=== PATIENT | female | born 2000 | race African-American/Black ===

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

== ENCOUNTER → 2020-10-31 | Outpatient (CLI) | payer OTHER ==
--- NOTE | 2020-11-01 16:14 | US ---
EXAMINATION TYPE: Transabdominal DATE OF EXAM: 10/31/2020 4:13 PM COMPARISON: NONE CLINICAL HISTORY: Z36 Confirm dates. Confirm Dates, pt has no complaints at this time EXAM PERFORMED: Transabdominal (TA) EXAM MEASUREMENTS: GESTATIONAL AGE / DATING Physician Established: Not yet established Dates by LMP: (9 weeks/1 days) EDC: 06/04/2021 Dates by First Scan: No prior Dates by Current Scan for: (8 weeks/4 days) EDC: 06/08/2021 MATERNAL ANATOMY Uterus: 10.1 x 7.6 x 8.3 cm Right Ovary: 3.4 x 2.3 x 2.2 cm Left Ovary: 2.2 x 1.8 x 1.2 cm Post CDS / Adnexa: wnl Presence of free fluid: No Presence of corpus luteal cyst: Right Ovary= 1.8 x 1.8 x 2.0 cm Presence of subchorionic bleed: No GESTATION / SURVEY CRL: 2.0 cm (8 weeks/4 days) MSD: wnl Yolk Sac (normal less than 6mm): 4mm Heart Rate: 176 bpm Rhythm: Normal IUP: Viable IUP Date of LMP: 08/28/2020 IMPRESSION: 1. Single intrauterine gestation estimated at 8 weeks 4 days gestation based on crown-rump length. Ca rdiac activity measures 1 76 bpm
== END ==
LOC: RADUSWWP 16:01
PROVIDERS: ATTEND Obstetrics & Gynecology
DX: Z36.89 Encounter for other specified antenatal screening (principal); Z3A.08 8 weeks gestation of pregnancy
CPT/HCPCS: 76801

== ENCOUNTER 2021-03-29 11:54 | Outpatient (CLI) | payer OTHER ==
[2021-03-29 12:34] VITALS: BP 142/64; PULSE 107; RESP 18; TEMP 96.2
--- NOTE | 2021-03-30 17:16 | P.MSEPDOC ---
Presenting Problems - Arrival Data Date of Arrival on Unit: 03/29/21 Time of Arrival on Unit: 12:00 Mode of Transport: Ambulatory - Complaint OB-Reason for Admission/Chief Complaint: Decreased Movement Medical History - Information : 2 Para: 1 Term: 1 : 0 Abortions: Spontaneous or Elective: 0 Number of Living Children: 1 - Gestational Age Gestational Age by AAMIR (wks/days): 30 Weeks and 3 Days Review of Systems - Review of Systems Constitutional: No problems Breast: No problems ENT: No problems Cardiovascular: No problems Respiratory: No problems Gastrointestinal: No problems Genitourinary: No problems Musculoskeletal: No problems Neurological: No problems Skin: No problems Vital Signs - Temperature Temperature: 96.2 F Temperature Source: Temporal Artery Scan - Pulse Right Brachial Pulse Rate: 107 Pulse Assessment Method: Automatic Cuff - Respirations Respiratory Rate: 18 Oxygen Delivery Method: Room Air O2 Sat by Pulse Oximetry: 99 - Blood Pressure Right Arm Blood Pressure: 142/64 Blood Pressure Mean: 90 Blood Pressure Source: Automatic Cuff Medical Screen Scoring - Cervical Exam Membranes: Intact - Assessment - Baby A Baseline FHR: 150 Heart Rate - NICHD Category: Category I (Normal) NST: Reactive Physician Notification - Physician Notified Physician Notified Date: 03/29/21 Physician Notified Time: 12:35 Physician: Dr Oglesby New Order Received: Yes (D/C order) Maternal Triage Index - Non-Urgent/Priority 4 Non-Urgent Priority 4: Yes Criteria Met for Priority 4: Admitted to triage at 1200. Dr Oglesby called at 1235 for NST results Disposition - Disposition OB Disposition: Discharge to home Discharge Date: 03/29/21 Discharge Time: 12:58 I agree with the RN Medical Screening Exam: Yes Case reviewed; plan agreed upon as documented in EMR&OBIX.: Yes Diagnosis: DECREASED MOVEMENTS, THIRD TRIMESTER, FETUS 1
== END 2021-03-29 12:58 | disposition home or self-care (01) ==
LOC: FBPOP 11:54
PROVIDERS: ATTEND Obstetrics & Gynecology
DX: O36.8131 Decreased fetal movements, third trimester, fetus 1 (principal); Z3A.30 30 weeks gestation of pregnancy
CPT/HCPCS: 59025; G0463; 99213

== ENCOUNTER 2021-05-20 02:52 | Inpatient (IN) | payer OTHER ==
[2021-05-20] MEDS ORDERED: OXYTOCIN 10 UNIT/ML 1 ML VIAL IM PRN (04:07)
[2021-05-20] MEDS ORDERED: METHYLERGONOVINE 0.2 MG/ML 1 ML AMP IM PRN (04:07)
[2021-05-20] MEDS ORDERED: TERBUTALINE 1 MG/ML VIAL SQ PRN (04:07)
[2021-05-20] MEDS ORDERED: LIDOCAINE 0.5% (PF) 5 MG/ML (50 ML SDV) SQ PRN (04:07)
[2021-05-20] MEDS ORDERED: AMPICILLIN 2,000 MG in SODIUM CHLORIDE 0.9% 100 ML IVPB STA (04:07)
[2021-05-20] MEDS ORDERED: CARBOPROST TROMETHAMINE 250 MCG/ML 1 ML AMP IM PRN (04:07)
[2021-05-20] MEDS ORDERED: OXYTOCIN 30 UNITS/500 ML NS 30 UNIT in SALINE 1 500ML.BAG IV SCH ×2 (04:15→09:15)
[2021-05-20] MEDS: LACTATED RINGERS 1,000 ML IV SCH ×2 (04:21→07:28)
[2021-05-20 04:54] LABS: Basophils % (A) 0 %; Eosinophils # (A) 0.2 k/uL (0-0.7); Eosinophils % (A) 2 %; HCT 28.7 % (34.0-46.0); Hypochromasia Slight; Lymphocytes # (A) 2.5 k/uL (1.0-4.8); Lymphocytes % (A) 22 %; MCH 22.8 pg (25.0-35.0); MCHC 31.2 g/dL (31.0-37.0); MCV 72.9 fL (80.0-100.0); Mean Platelet Volume 7.2; Microcytosis Slight; Monocytes # (A) 0.8 k/uL (0-1.0); Monocytes % (A) 7 %; Neutrophils # (A) 7.7 k/uL (1.3-7.7); Neutrophils % (A) 67 %; Platelet Count 344 k/uL (150-450); Poikilocytosis Slight; RBC 3.93 m/uL (3.80-5.40); RDW 15.9 % (11.5-15.5); WBC 11.5 k/uL (3.8-10.6)
[2021-05-20 04:57] LABS: Amorphous Sediment,Urine Occasional /hpf; Appearance,Urine Clear (Clear); Bilirubin,Urine Negative (Negative); Blood,Urine Negative (Negative); Color,Urine Yellow; Glucose,Urine (UA) Negative (Negative); Hyaline Casts,Urine 1 /lpf (0-2); Ketones,Urine Negative (Negative); Leukocyte Esterase,Urine Small (Negative); Mucus,Urine Many /hpf; Nitrite,Urine Negative (Negative); PH, Urine 6.5 (5.0-8.0); Protein,Urine Trace (Negative); RBC,Urine <1 /hpf (0-5); Specific Gravity,Urine 1.022 (1.001-1.035); Squamous Epithelial Cell,Urine 3 /hpf (0-4); Urobilinogen,Urine <2.0 mg/dL (<2.0); WBC,Urine 3 /hpf (0-5)
[2021-05-20 05:06] LABS: ALT 11 U/L (4-34); AST 26 U/L (14-36); African American GFR (CKD) >90 (>60 ml/min/1.73 sqM); Blood Urea Nitrogen 7 mg/dL (7-17); LDH 530 U/L (313-618); Non-African American GFR(CKD) >90 (>60 ml/min/1.73 sqM); Uric Acid 4.2 mg/dL (3.7-7.4)
[2021-05-20 05:26] LABS: INR 0.8 (<1.2); Partial Thromboplastin Time 20.7 sec (22.0-30.0); Prothrombin Time 9.3 sec (9.0-12.0)
--- NOTE | 2021-05-20 05:27 | P.HPOB ---
History of Present Illness H&P Date: 05/20/21 Chief Complaint: Contractions This patient is a pleasant 21-year-old 3 para 1 female estimated date of confinement 06/04/2021 estimated gestational age 38-6/7 weeks who presents to labor and delivery with complaints of contractions since 1 this morning. On admission patient's found to be 2 cm dilated and having irregular contractions however she has had multiple elevated blood pressures. care is per Dr. Oglesby appears to be uncomplicated. Preeclampsia labs are negative. Evaluation the patient shows that she is most likely in early labor, however in light of the elevated blood pressures some recommended proceed with delivery at this time. Review of Systems Genitourinary: Reports Menstruation: Reports amenorrhea Past Medical History Past Medical History: Asthma Additional Past Medical History / Comment(s): Obstetric history: Patient had a term vaginal deliveries 7 lbs. 5 oz. baby girl in 2019. History of Any Multi-Drug Resistant Organisms: None Reported Past Surgical History: No Surgical Hx Reported Past Anesthesia/Blood Transfusion Reactions: No Reported Reaction Past Psychological History: No Psychological Hx Reported Smoking Status: Never smoker Past Alcohol Use History: None Reported Past Drug Use History: None Reported - Past Family History Mother Family Medical History: Hypertension Additional Family Medical History / Comment(s): anxiety Medications and Allergies Home Medications Medication Instructions Recorded Confirmed Type No Known Home Medications 05/20/21 05/20/21 History Allergies Allergy/AdvReac Type Severity Reaction Status Date / Time No Known Allergies Allergy Verified 05/20/21 02:54 Exam Vital Signs Temp Pulse Resp BP Pulse Ox 05/20/21 04:16 97.1 F L 104 H 18 146/85 05/20/21 04:03 98.5 F 111 H 18 166/90 98 Intake and Output 05/19/21 05/19/21 05/20/21 14:59 22:59 06:59 Other: Weight 110.677 kg - OBG Physical Exam Vulva: both: normal Vagina: normal moisture, no discharge Cervix: no lesion (Cervix is 2-3 cm, 50% effaced.), no discharge Uterus: enlarged Results blood work shows she is B+, rubella immune, RPR nonreactive, hepatitis B negative, HIV is nonreactive. Group B strep was negative however she has a history of positive strep with her first . Growth ultrasound done on the show the baby's estimated weight to be 5 pounds. Result Diagrams: 05/20/21 04:22 05/20/21 04:22 Abnormal Lab Results - Last 24 Hours (Table) 05/20/21 05/20/21 Range/Units 04:12 04:22 WBC 11.5 H (3.8-10.6) k/uL Hgb 9.0 L (11.4-16.0) gm/dL Hct 28.7 L (34.0-46.0) % MCV 72.9 L (80.0-100.0) fL MCH 22.8 L (25.0-35.0) pg RDW 15.9 H (11.5-15.5) % Urine Protein Trace H (Negative) Ur Leukocyte Esterase Small H (Negative) Amorphous Sediment Occasional H (None) /hpf Urine Mucus Many H (None) /hpf Assessment and Plan Assessment: This is a pleasant 21-year-old 3 para 1 female 38-6/7 weeks gestation with early active labor and gestational hypertension. She also has a history of positive strep with a previous . Plan is induction of labor, antibiotic prophylaxis, and anticipate vaginal delivery. (1) 38 weeks gestation of Current Visit: Yes Status: Acute Code(s): Z3A.38 - 38 WEEKS GESTATION OF SNOMED Code(s): 18193632 (2) Gestational hypertension Current Visit: Yes Status: Acute Code(s): O13.9 - GESTATIONAL HTN W/O SIGNIFICANT PROTEINURIA, UNSP TRIMESTER SNOMED Code(s): 76174774 (3) Normal labor Current Visit: No Status: Resolved Code(s): O80 - ENCOUNTER FOR FULL-TERM UNCOMPLICATED DELIVERY; Z37.9 - OUTCOME OF DELIVERY, UNSPECIFIED SNOMED Code(s): 75249043
[2021-05-20] MEDS ORDERED: BUTORPHANOL 1 MG/ML 1 ML VIAL IV PRN (05:41)
[2021-05-20] MEDS ORDERED: SODIUM CHLORIDE 0.9% 100 ML BAG ONE (07:55)
[2021-05-20] MEDS ORDERED: fentaNYL (PF) 50 MCG/ML 5 ML AMP ONE (07:55)
[2021-05-20] MEDS ORDERED: ROPIVACAINE 5MG/ML 20ML VIAL ONE (07:55)
[2021-05-20] MEDS ORDERED: AMPICILLIN 1,000 MG in SODIUM CHLORIDE 0.9% 50 ML IVPB SCH (08:15)
[2021-05-20] MEDS ORDERED: diphenhydrAMINE 50 MG/ML 1 ML VIAL IVP PRN (09:15)
[2021-05-20] MEDS ORDERED: LANOLIN CREAM 5 GM TUBE TOPICAL PRN (09:15)
[2021-05-20] MEDS ORDERED: SENNOSIDES-DOCUSATE SODIUM 1 EACH TAB PO PRN (09:15)
[2021-05-20] MEDS ORDERED: BENZOCAINE/MENTHOL SPRAY 1 GM/SPRAY AEROSOL TOPICAL PRN (09:15)
[2021-05-20] MEDS ORDERED: HYDROCORTISONE 2.5% RECTAL CREAM 30 GM TUBE RECTAL PRN (09:15)
[2021-05-20] MEDS ORDERED: diphenhydrAMINE 25 MG CAP PO PRN (09:15)
[2021-05-20] MEDS ORDERED: ZOLPIDEM 5 MG TAB PO PRN (09:15)
[2021-05-20] MEDS ORDERED: bisacodyL 10 MG SUPP RECTAL PRN (09:15)
[2021-05-20] MEDS ORDERED: SIMETHICONE 80 MG CHEWABLE PO PRN (09:15)
--- NOTE | 2021-05-20 09:19 | P.PROBDLV ---
Vaginal Delivery Note - . Vaginal Delivery Note: Normal spontaneous vaginal delivery viable female infant Apgars 9 and 9 delivery time was 0859 hours. Please see dictated H&P for intimate details of this patient's admission. Brief summary this is a pleasant 21-year-old 3 para 1 female 38-6/7 weeks gestation admitted to labor and delivery in early active labor and also with elevated blood pressures. Preeclampsia evaluation was negative however I recommended she proceed with delivery at this time. Artificial rupture membranes was done at 2 cm dilated for clear fluid. Labor is augmented with Pitocin. She does get 1 dose of Stadol and then requested an epidural at 4-5 cm dilated. Unfortunately this does not give her very good relief, however she does progress quickly gets to complete. With approximately 2 pushes she pushes the head to the perineum. The posterior perineum is supported and we have controlled delivery of the infant's head over the intact perineum. Infant's mouth and nares are bulb suctioned. There is no evidence of a nuchal cord. Infant's position straight occiput anterior presentation. With this done we then have delivery the anterior and posterior shoulder with gentle downward traction. This is a vigorous viable female infant at 0859 hours. has spontaneous respiration and good cry and grossly appears normal. The baby is in laid on the mother's abdomen. After the cord is done pulsating is doubly clamped and cut. Does appear to be trivascular. Placenta is then delivered spontaneously intact. Estimated blood loss is 100 mL. There is a small first- degree laceration posterior vagina which is repaired with 3-0 Vicryl in the usual fashion. Excellent reapproximation is noted. All counts correct 3. There are no complications. Infant and mother are stable and birthing room.
[2021-05-20] MEDS: IBUPROFEN 600 MG TAB PO PRN ×3 (09:50→22:56)
[2021-05-20] MEDS: ACETAMINOPHEN TAB 325 MG TAB PO PRN ×2 (13:16→19:33)
[2021-05-21] MEDS: ACETAMINOPHEN TAB 325 MG TAB PO PRN ×2 (03:57→15:49)
[2021-05-21 05:51] LABS: Anisocytosis Slight; Basophils % (A) 0 %; Eosinophils # (A) 0.2 k/uL (0-0.7); Eosinophils % (A) 2 %; HCT 23.1 % (34.0-46.0); Hypochromasia Moderate; Lymphocytes % (A) 30 %; MCH 22.7 pg (25.0-35.0); MCHC 30.5 g/dL (31.0-37.0); MCV 74.6 fL (80.0-100.0); Microcytosis Slight; Monocytes # (A) 0.7 k/uL (0-1.0); Monocytes % (A) 7 %; Neutrophils # (A) 5.8 k/uL (1.3-7.7); Neutrophils % (A) 58 %; Platelet Count 230 k/uL (150-450); Poikilocytosis Slight; RDW 16.1 % (11.5-15.5)
[2021-05-21 05:58] LABS: HGB 7.1 gm/dL (11.4-16.0)
--- NOTE | 2021-05-21 07:24 | P.DS ---
Providers Date of admission: 05/20/21 04:10 Expected date of discharge: 05/21/21 Attending physician: Carli Oglesby Primary care physician: Stated None - Discharge Diagnosis(es) (1) Normal vaginal delivery Current Visit: No Status: Acute Hospital Course: Patient presented in active labor. She underwent a normal vaginal delivery. course was uncomplicated. She denies nausea, vomiting, chest pain, shortness of breath or any calf pain. She'll be discharged home day #1 in stable condition to follow-up with me in 6 weeks. Plan - Discharge Summary New Discharge Prescriptions: New Ibuprofen [Motrin] 600 mg PO Q6HR PRN #30 tab PRN Reason: Mild Pain (Scale 1 To 3) Discharge Medication List Ibuprofen [Motrin] 600 mg PO Q6HR PRN #30 tab 05/21/21 [Rx] Follow up Appointment(s)/Referral(s): Carli Oglesby DO [Doctor of Osteopathic Medicine] - 6 Weeks Discharge Disposition: HOME SELF-CARE
[2021-05-21] MEDS: IBUPROFEN 600 MG TAB PO PRN ×2 (07:31→22:24)
[2021-05-21 23:47] VITALS: PULSE 78
[2021-05-22] MEDS: ACETAMINOPHEN TAB 325 MG TAB PO PRN (04:57)
[2021-05-22 08:01] VITALS: BP 141/84; RESP 16; TEMP 98.5
[2021-05-22] MEDS: IBUPROFEN 600 MG TAB PO PRN (08:37)
== END 2021-05-22 09:30 | disposition home or self-care (01) | DRG 807 ==
LOC: FBPOP 02:52 → 4FBP 04:10
PROVIDERS: ADMIT Obstetrics & Gynecology; ATTEND Obstetrics & Gynecology
PROC: 00HU33Z Insertion of Infusion Device into Spinal Canal, Percutaneous Approach (ICD-10-PCS; principal; 2021-05-20)
PROC: 10907ZC Drainage of Amniotic Fluid, Therapeutic from Products of Conception, Via Natural or Artificial Opening (ICD-10-PCS; principal; 2021-05-20)
PROC: 3E0R3NZ Introduction of Analgesics, Hypnotics, Sedatives into Spinal Canal, Percutaneous Approach (ICD-10-PCS; principal; 2021-05-20)
PROC: 10E0XZZ Delivery of Products of Conception, External Approach (ICD-10-PCS; principal; 2021-05-20)
DX: O13.4 Gestational [pregnancy-induced] hypertension without significant proteinuria, complicating childbirth (principal); Z37.0 Single live birth; O99.52 Diseases of the respiratory system complicating childbirth; J45.909 Unspecified asthma, uncomplicated; Z3A.38 38 weeks gestation of pregnancy; Z82.49 Family history of ischemic heart disease and other diseases of the circulatory system; Z81.8 Family history of other mental and behavioral disorders
CPT/HCPCS: 59025; 81001; 82565; 83615; 84450; 84460; 84520; 84550; 85025; 85384; 85610; 85730; 86850; 86900; 86901; 99213

== ENCOUNTER 2022-07-04 00:53 | Emergency (ER) | payer OTHER ==
[2022-07-04 01:06] VITALS: BP 133/88; PULSE 89; RESP 18; TEMP 98.1
[2022-07-04 01:58] LABS: Basophils % (A) 0 %; Eosinophils # (A) 0.3 k/uL (0-0.7); Eosinophils % (A) 3 %; HCT 34.3 % (34.0-46.0); HGB 11.5 gm/dL (11.4-16.0); Lymphocytes # (A) 3.2 k/uL (1.0-4.8); Lymphocytes % (A) 37 %; MCH 26.6 pg (25.0-35.0); MCHC 33.5 g/dL (31.0-37.0); MCV 79.4 fL (80.0-100.0); Mean Platelet Volume 8.4; Monocytes # (A) 0.4 k/uL (0-1.0); Monocytes % (A) 5 %; Neutrophils # (A) 4.5 k/uL (1.3-7.7); Neutrophils % (A) 53 %; Platelet Count 367 k/uL (150-450); RBC 4.32 m/uL (3.80-5.40); RDW 15.4 % (11.5-15.5); WBC 8.6 k/uL (3.8-10.6)
[2022-07-04 02:04] LABS: Appearance,Urine Cloudy (Clear); Bacteria,Urine Rare /hpf; Bilirubin,Urine Negative (Negative); Blood,Urine Negative (Negative); Color,Urine Colorless; Glucose,Urine (UA) Negative (Negative); Ketones,Urine Negative (Negative); Leukocyte Esterase,Urine Moderate (Negative); Mucus,Urine Rare /hpf; Nitrite,Urine Negative (Negative); PH, Urine 6.5 (5.0-8.0); Protein,Urine Negative (Negative); RBC,Urine 24 /hpf (0-5); Specific Gravity,Urine 1.004 (1.001-1.035); Squamous Epithelial Cell,Urine 1 /hpf (0-4); Urobilinogen,Urine <2.0 mg/dL (<2.0); WBC,Urine 8 /hpf (0-5)
[2022-07-04 02:21] LABS: ALT 23 U/L (4-34); AST 24 U/L (14-36); African American GFR (CKD) >90 (>60 ml/min/1.73 sqM); Albumin 4.1 g/dL (3.5-5.0); Alkaline Phosphatase 80 U/L (38-126); Anion Gap 9 mmol/L; Blood Urea Nitrogen 6 mg/dL (7-17); Calcium 9.3 mg/dL (8.4-10.2); Carbon Dioxide 23 mmol/L (22-30); Chloride 106 mmol/L (98-107); Glucose 77 mg/dL (74-99); Non-African American GFR(CKD) >90 (>60 ml/min/1.73 sqM); Sodium 138 mmol/L (137-145); Total Bilirubin 0.2 mg/dL (0.2-1.3); Total Protein 6.9 g/dL (6.3-8.2)
--- NOTE | 2022-07-04 02:23 | US ---
EXAMINATION TYPE: Transabdominal DATE OF EXAM: 07/04/2022 2:09 AM COMPARISON: NONE CLINICAL HISTORY: vaginal bleeding in early ; LMP 05-19-22. vaginal bleeding x 1 day. EXAM PERFORMED: Transvaginal (TV) and Transabdominal (TA) EXAM MEASUREMENTS: GESTATIONAL AGE / DATING Physician Established: Not yet established Dates by LMP: 06/03/22 (4 weeks/3 days) EDC: 03/10/23 Dates by First Scan: No previous this is first scan Dates by Current Scan for: (5 weeks/2 days) EDC: 03/05/23 MATERNAL ANATOMY Uterus: 10.4 x 6.8 x 4.9cm Right Ovary: 3.9 x 3.3 x 2.2cm Left Ovary: Not vis. Post CDS / Adnexa: wnl Presence of free fluid: No Presence of corpus luteal cyst: In right ovary Presence of subchorionic bleed: Yes GESTATION / SURVEY CRL: Not seen MSD: 1.2 x 1.1 x 1.2cm (5 weeks/2 days) Yolk Sac (normal less than 6mm): 2.5 IUP: Gest sac with yolk sac visualized in endometrial area Date of LMP: 06/03/22 Beta HcG (if available): n/a IMPRESSION: Small intrauterine gestational sac with size corresponds to 5 weeks and 2 days. 2 mm yolk sac. Follow -up exam recommended in 14 days to confirm a living fetus. No adnexal mass.
--- NOTE | 2022-07-04 02:46 | ED ---
General Adult HPI - General Chief complaint: Vaginal Bleeding Stated complaint: Vaginal bleeding, early Time Seen by Provider: 07/04/22 01:13 Source: patient, RN notes reviewed Mode of arrival: ambulatory Limitations: no limitations - History of Present Illness Initial comments: 22-year-old female, , presents to the emergency department for evaluation of vaginal bleeding and early . Patient states her last menstrual period was May 19, though did have some spotting on the 03 of June. States she had a positive home test which was confirmed at the health department. States she was diagnosed with a yeast infection and instructed to start on Monistat which she has obtained, but has not used yet. States she noticed some blood on the tissue when she wiped earlier today and became concerned about her . Does have some itching, irritation discomfort. Has not had any blood on underwear/pantyliner. Complains of mild low back and pelvic achiness. Denies fever, chills, headache, dizziness, chest pain, difficulty breathing, abdominal pain, nausea, vomiting, diarrhea, or dysuria. - Related Data Previous Rx's Medication Instructions Recorded Ibuprofen [Motrin] 600 mg PO Q6HR PRN #30 tab 05/21/21 Allergies Allergy/AdvReac Type Severity Reaction Status Date / Time No Known Allergies Allergy Verified 07/04/22 01:06 Review of Systems ROS Statement: Those systems with pertinent positive or pertinent negative responses have been documented in the HPI. ROS Other: All systems not noted in ROS Statement are negative. Past Medical History Past Medical History: Asthma Additional Past Medical History / Comment(s): Obstetric history: Patient had a term vaginal deliveries 7 lbs. 5 oz. baby girl in 2019. History of Any Multi-Drug Resistant Organisms: None Reported Past Surgical History: No Surgical Hx Reported Past Anesthesia/Blood Transfusion Reactions: No Reported Reaction Past Psychological History: No Psychological Hx Reported Smoking Status: Never smoker Past Alcohol Use History: None Reported Past Drug Use History: None Reported - Past Family History Mother Family Medical History: Hypertension Additional Family Medical History / Comment(s): anxiety General Exam Limitations: no limitations General appearance: alert, in no apparent distress ENT exam: Present: mucous membranes moist Respiratory exam: Present: normal lung sounds bilaterally. Absent: respiratory distress, wheezes, rales, rhonchi, stridor Cardiovascular Exam: Present: regular rate, normal rhythm, normal heart sounds. Absent: systolic murmur, diastolic murmur, rubs, gallop, clicks GI/Abdominal exam: Present: soft, normal bowel sounds. Absent: distended, tenderness, guarding, rebound, rigid Speculum exam: Present: vaginal discharge (white vaginal discharge curd-like in appearance noted on the vulva and with speculum exam). Absent: vaginal bleeding Back exam: Absent: CVA tenderness (R), CVA tenderness (L) Neurological exam: Present: alert, oriented X3, normal gait Psychiatric exam: Present: normal affect, normal mood Skin exam: Present: warm, dry, intact, normal color. Absent: rash Course Vital Signs 07/04/22 01:04 Temperature 98.1 F Pulse Rate 89 Respiratory 18 Rate Blood Pressure 133/88 O2 Sat by Pulse 100 Oximetry - Reevaluation(s) Reevaluation #1: 07/04/22 02:45 Results were discussed with patient. Patient is reassured. Given lab slip for repeat beta hCG. Instructed on follow-up care and return parameters. Patient verbalizes understanding. Medical Decision Making - Medical Decision Making 22-year-old female, , LMP 109-22, presents to the emergency department for evaluation of vaginal bleeding in early . Patient states she has noticed blood on the tissue when she wipes today. Has mild low back and pelvic aching discomfort. Physical exam findings are unremarkable with the exception of vaginal yeast infection which is likely the source of irritation causing scant amount of bleeding. Ultrasound was obtained showing a gestational sac within the uterus. Laboratory studies were obtained. Initial b-hCG 10,338.3. Patient is given a lab slip for repeat beta hCG in 48 hours. Encouraged to follow up with her [facility] [employer] next week. Return parameters discussed in detail. Patient verbalizes understanding and agrees with this plan. Attending: Georgina. - Lab Data Result diagrams: 07/04/22 01:43 07/04/22 01:43 Lab Results 07/04/22 07/04/22 07/04/22 Range/Units 01:23 01:23 01:43 WBC 8.6 (3.8-10.6) k/uL RBC 4.32 (3.80-5.40) m/uL Hgb 11.5 (11.4-16.0) gm/dL Hct 34.3 (34.0-46.0) % MCV 79.4 L (80.0-100.0) fL MCH 26.6 (25.0-35.0) pg MCHC 33.5 (31.0-37.0) g/dL RDW 15.4 (11.5-15.5) % Plt Count 367 (150-450) k/uL MPV 8.4 Neutrophils % 53 % Lymphocytes % 37 % Monocytes % 5 % Eosinophils % 3 % Basophils % 0 % Neutrophils # 4.5 (1.3-7.7) k/uL Lymphocytes # 3.2 (1.0-4.8) k/uL Monocytes # 0.4 (0-1.0) k/uL Eosinophils # 0.3 (0-0.7) k/uL Basophils # 0.0 (0-0.2) k/uL Sodium (137-145) mmol/L Potassium (3.5-5.1) mmol/L Chloride (98-107) mmol/L Carbon Dioxide (22-30) mmol/L Anion Gap mmol/L BUN (7-17) mg/dL Creatinine (0.52-1.04) mg/dL Est GFR (CKD-EPI)AfAm (>60 ml/min/1.73 sqM) Est GFR (CKD-EPI)NonAf (>60 ml/min/1.73 sqM) Glucose (74-99) mg/dL Calcium (8.4-10.2) mg/dL Total Bilirubin (0.2-1.3) mg/dL AST (14-36) U/L ALT (4-34) U/L Alkaline Phosphatase (38-126) U/L Total Protein (6.3-8.2) g/dL Albumin (3.5-5.0) g/dL HCG, Quant mIU/mL Urine Color Colorless Urine Appearance Cloudy H (Clear) Urine pH 6.5 (5.0-8.0) Ur Specific [place] 1.004 (1.001-1.035) Urine Protein Negative (Negative) Urine Glucose (UA) Negative (Negative) Urine Ketones Negative (Negative) Urine Blood Negative (Negative) Urine Nitrite Negative (Negative) Urine Bilirubin Negative (Negative) Urine Urobilinogen <2.0 (<2.0) mg/dL Ur Leukocyte Esterase Moderate H (Negative) Urine RBC 24 H (0-5) /hpf Urine WBC 8 H (0-5) /hpf Ur Squamous Epith Cells 1 (0-4) /hpf Urine Bacteria Rare H (None) /hpf Urine Mucus Rare H (None) /hpf Urine HCG, Qual Detected (Not Detectd) 07/04/22 Range/Units 01:43 WBC (3.8-10.6) k/uL RBC (3.80-5.40) m/uL Hgb (11.4-16.0) gm/dL Hct (34.0-46.0) % MCV (80.0-100.0) fL MCH (25.0-35.0) pg MCHC (31.0-37.0) g/dL RDW (11.5-15.5) % Plt Count (150-450) k/uL MPV Neutrophils % % Lymphocytes % % Monocytes % % Eosinophils % % Basophils % % Neutrophils # (1.3-7.7) k/uL Lymphocytes # (1.0-4.8) k/uL Monocytes # (0-1.0) k/uL Eosinophils # (0-0.7) k/uL Basophils # (0-0.2) k/uL Sodium 138 (137-145) mmol/L Potassium 4.0 (3.5-5.1) mmol/L Chloride 106 (98-107) mmol/L Carbon Dioxide 23 (22-30) mmol/L Anion Gap 9 mmol/L BUN 6 L (7-17) mg/dL Creatinine 0.70 (0.52-1.04) mg/dL Est GFR (CKD-EPI)AfAm >90 (>60 ml/min/1.73 sqM) Est GFR (CKD-EPI)NonAf >90 (>60 ml/min/1.73 sqM) Glucose 77 (74-99) mg/dL Calcium 9.3 (8.4-10.2) mg/dL Total Bilirubin 0.2 (0.2-1.3) mg/dL AST 24 (14-36) U/L ALT 23 (4-34) U/L Alkaline Phosphatase 80 (38-126) U/L Total Protein 6.9 (6.3-8.2) g/dL Albumin 4.1 (3.5-5.0) g/dL HCG, Quant 04478.3 mIU/mL Urine Color Urine Appearance (Clear) Urine pH (5.0-8.0) Ur Specific [place] (1.001-1.035) Urine Protein (Negative) Urine Glucose (UA) (Negative) Urine Ketones (Negative) Urine Blood (Negative) Urine Nitrite (Negative) Urine Bilirubin (Negative) Urine Urobilinogen (<2.0) mg/dL Ur Leukocyte Esterase (Negative) Urine RBC (0-5) /hpf Urine WBC (0-5) /hpf Ur Squamous Epith Cells (0-4) /hpf Urine Bacteria (None) /hpf Urine Mucus (None) /hpf Urine HCG, Qual (Not Detectd) - Radiology Data Radiology results: report reviewed, image reviewed Ultrasound WAS OBTAINED. REPORT WAS REVIEWED IN ITS ENTIRETY. IMPRESSION PER DR. PARADA A SMALL INTRAUTERINE GESTATIONAL SAC WITH SIZE CORRESPONDS TO 5 WEEKS AND 2 DAYS. 2 MM YOLK SAC. FOLLOW-UP EXAM RECOMMENDED IN 14 DAYS TO CONFIRM A LIVING FETUS. NO ADNEXAL MASS. Disposition Clinical Impression: Threatened , Vaginal yeast infection Disposition: HOME SELF-CARE Condition: Stable Instructions (If sedation given, give patient instructions): Threatened Miscarr iage (ED), Yeast Infection (ED) Additional Instructions: Have repeat blood work drawn in 48 hours (Friday morning). Continue Monistat as instructed. Avoid sexual intercourse if you are spotting/bleeding. Follow-up with your [facility] [employer] next week. Return to the emergency department with any new, worsening, or concerning symptoms. Is patient prescribed a controlled substance at d/c from ED?: No Referrals: None,Stated [Primary Care Provider] - 1-2 days Carli Oglesby DO [Doctor of Osteopathic Medicine] - 1-2 days Time of Disposition: 02:46
[2022-07-04 03:12] LABS: HCG,Quantitative Serum 10338.3 mIU/mL
== END 2022-07-04 03:07 | disposition home or self-care (01) ==
LOC: EC 00:53
DX: O20.0 Threatened abortion (principal); J45.909 Unspecified asthma, uncomplicated
CPT/HCPCS: 36415; 76801; 76817; 80053; 81001; 81025; 84702; 85025; 99284

== ENCOUNTER → 2022-07-25 | Outpatient (CLI) | payer OTHER ==
--- NOTE | 2022-07-25 23:08 | US ---
EXAMINATION TYPE: Transabdominal DATE OF EXAM: 07/25/2022 4:50 PM COMPARISON: None. CLINICAL HISTORY: Z36.89 ENCOUNTER FOR OTHER SPECIFIED SCR. dates positive beta hCG test. EXAM PERFORMED: Transabdominal (TA) EXAM MEASUREMENTS: GESTATIONAL AGE / DATING Physician Established: Not yet established Dates by LMP: (9 weeks/4 days) EDC: 02/23/2023 Dates by First Scan: (8 weeks/1 days) EDC: 03/05/2023 Dates by Current Scan for: (8 weeks/5 days) EDC: 03/01/2023 MATERNAL ANATOMY Uterus: 12.0 x 7.3 x 6.4 cm Right Ovary: 3.4 x 2.1 x 2.9 cm Left Ovary: 3.4 x 1.5 x 1.2 cm Post CDS / Adnexa: no free fluid Presence of free fluid: no Presence of corpus luteal cyst: right ovary= 1.8 x 1.5 x 2.0 cm Presence of subchorionic bleed: no GESTATION / SURVEY CRL: 2.0 cm (8 weeks/5 days) MSD: seen not measured Yolk Sac (normal less than 6mm): 2.5 mm Heart Rate: 161 bpm Rhythm: Normal IUP: Viable IUP Date of LMP: 05/19/2022, Beta HcG (if available): Not available at this time Single live intrauterine gestation as gestational sac, yolk sac, and pole are identified. No fr ee fluid in pelvic cul-de-sac. Both ovaries are seen. Within the right ovary there is 1.8 cm cyst with thickened wall thought to ref lect corpus luteal cyst. No suspicious adnexal mass. IMPRESSION: Single live intrauterine gestation is confirmed, mean crown-rump length 2.0 cm correspond s to 8 week 5 day old fetus.
== END | disposition home or self-care (01) ==
LOC: RADUSWWP 16:31
PROVIDERS: ATTEND Obstetrics & Gynecology
DX: Z36.89 Encounter for other specified antenatal screening (principal); Z3A.09 9 weeks gestation of pregnancy
CPT/HCPCS: 76801

== ENCOUNTER 2023-02-13 12:33 | Outpatient (CLI) | payer OTHER ==
--- NOTE | 2023-02-13 14:16 | US ---
EXAMINATION TYPE: US OB BPP wo non-stress DATE OF EXAM: 02/13/2023 COMPARISON: NONE CLINICAL INDICATION: Female, 22 years old with history of circumvalate placenta. written order; TECHNIQUE: Transabdominal (TA). Scoring by the manager deli during real-time assessment. FINDINGS: BPP PARAMETERS: PRESENTATION: Vertex HEART RATE: 150 bpm RHYTHM: Normal KING: 9.4cm DIAPHRAGM IMAGED: yes BPP SCORIN. Breathin (1 episode of breathing of 30 second duration in 30 minutes of scanning time) 2. Movement: 2 (at least 3 discrete body movements in 30 minutes) 3. Tone: 2 (1 episode of active flexion/extension of limb) 4. KING: 2 (KING index > 5cm) IMPRESSION: TOTAL SCORE: 8 / 8
[2023-02-13 14:27] VITALS: BP 132/72; PULSE 117; RESP 18; TEMP 97.9
--- NOTE | 2023-02-17 06:47 | P.MSEPDOC ---
Presenting Problems - Arrival Data Date of Arrival on Unit: 02/13/23 Time of Arrival on Unit: 12:33 Mode of Transport: Portable - Complaint OB-Reason for Admission/Chief Complaint: NST, Other Comment: Patient sent to L&D per Dr Oglesby for NST and BPP for circumvallate placenta 043.119 Medical History - Information : 3 Para: 2 Number of Living Children: 2 - Gestational Age Gestational Age by AAMIR (wks/days): 37 Weeks and 5 Days Review of Systems - Review of Systems Constitutional: No problems Breast: No problems ENT: No problems Cardiovascular: No problems Respiratory: No problems Gastrointestinal: No problems Genitourinary: No problems Musculoskeletal: No problems Neurological: No problems Skin: No problems Vital Signs - Temperature Temperature: 97.9 F Temperature Source: Tympanic - Pulse Right Sitting Pulse Rate: 117 Pulse Assessment Method: Automatic Cuff - Respirations Respiratory Rate: 18 Oxygen Delivery Method: Room Air O2 Sat by Pulse Oximetry: 99 - Blood Pressure Right Arm Sitting Blood Pressure: 132/72 Blood Pressure Mean: 92 Blood Pressure Source: Automatic Cuff Medical Screen Scoring - Uterine Contractions Frequency From (mins): 0 Frequency To (mins): 0 Duration From (seconds): 0 Duration To (seconds): 0 Intensity: Absent Resting: Soft to palpation - Assessment - Baby A Baseline FHR: 130 Heart Rate - NICHD Category: Category I (Normal) Physician Notification - Physician Notified Physician Notified Date: 02/13/23 Physician Notified Time: 14:03 Physician: Carli Oglesby Order Received: Yes (discharge patient home) - Notification Comment Comment: BPP 8/8 and reactive NST FHR 130, moderate variability, 15X15 accels and no decels. No contractions noted Maternal Triage Index - Maternal Triage Index Presenting for scheduled procedure w/no complaint: No - Stat/Priority 1 Stat Priority 1: No - Urgent/Priority 2 Urgent Priority 2: No - Prompt/Priority 3 Prompt Priority 3: No - Non-Urgent/Priority 4 Non-Urgent Priority 4: No - Scheduled/Requesting Priority 5 Scheduled/Requesting Priority 5: Yes Criteria Met for Priority 5: Patient sent from office for NST and BPP for circumvallate placenta 043.119 Disposition - Disposition OB Disposition: Discharge to home Discharge Date: 07/06/23 Discharge Time: 14:05 I agree with the RN Medical Screening Exam: Yes Case reviewed; plan agreed upon as documented in EMR&OBIX.: Yes Diagnosis: CIRCUMVALLATE PLACENTA, THIRD TRIMESTER
== END 2023-02-13 14:05 | disposition home or self-care (01) ==
LOC: FBPOP 12:33
PROVIDERS: ATTEND Obstetrics & Gynecology
DX: O43.113 Circumvallate placenta, third trimester (principal); Z3A.37 37 weeks gestation of pregnancy
CPT/HCPCS: 59025; 76819

== ENCOUNTER 2023-02-20 06:00 | Inpatient (IN) | payer OTHER ==
[2023-02-20] MEDS ORDERED: TERBUTALINE 1 MG/ML VIAL SQ PRN (06:26)
[2023-02-20] MEDS ORDERED: AMPICILLIN 2,000 MG in SODIUM CHLORIDE 0.9% 100 ML IVPB STA (06:26)
[2023-02-20] MEDS ORDERED: LIDOCAINE 0.5% (PF) 5 MG/ML (50 ML SDV) SQ PRN (06:26)
[2023-02-20] MEDS ORDERED: CARBOPROST TROMETHAMINE 250 MCG/ML 1 ML AMP IM PRN (06:26)
[2023-02-20] MEDS ORDERED: miSOPROStoL 200 MCG TAB PO PRN (06:26)
[2023-02-20] MEDS ORDERED: TRANEXAMIC 1,000 MG/100ML-NACL 1,000 MG in EMPTY BAG 1 BAG IV PRN (06:26)
[2023-02-20] MEDS ORDERED: OXYTOCIN 10 UNIT/ML 1 ML VIAL IM PRN (06:26)
[2023-02-20] MEDS ORDERED: METHYLERGONOVINE 0.2 MG/ML 1 ML AMP IM PRN (06:26)
[2023-02-20] MEDS ORDERED: OXYTOCIN 30 UNITS/500 ML NS 30 UNIT in SALINE 1 500ML.BAG IV SCH (06:30)
[2023-02-20] MEDS: LACTATED RINGERS 1,000 ML IV SCH ×2 (06:33→10:33)
[2023-02-20 06:51] LABS: Anisocytosis Slight; Basophils % (A) 0 %; Eosinophils # (A) 0.3 k/uL (0-0.7); Eosinophils % (A) 3 %; HCT 26.5 % (34.0-46.0); HGB 8.6 gm/dL (11.4-16.0); Hypochromasia Moderate; Lymphocytes # (A) 2.6 k/uL (1.0-4.8); Lymphocytes % (A) 30 %; MCHC 32.3 g/dL (31.0-37.0); MCV 71.1 fL (80.0-100.0); Mean Platelet Volume 9.4; Microcytosis Moderate; Monocytes # (A) 0.6 k/uL (0-1.0); Monocytes % (A) 6 %; Neutrophils # (A) 5.1 k/uL (1.3-7.7); Neutrophils % (A) 59 %; Platelet Count 282 k/uL (150-450); Poikilocytosis Slight; RBC 3.73 m/uL (3.80-5.40); RDW 16.1 % (11.5-15.5); WBC 8.7 k/uL (3.8-10.6)
[2023-02-20] MEDS ORDERED: fentaNYL (PF) 50 MCG/ML 5 ML AMP ONE (10:18)
[2023-02-20] MEDS ORDERED: ROPIVACAINE 5 MG/ML 20 ML AMPULE ONE (10:18)
[2023-02-20] MEDS ORDERED: SODIUM CHLORIDE 0.9% 100 ML BAG ONE (10:18)
--- NOTE | 2023-02-20 10:23 | P.HPOB ---
History of Present Illness H&P Date: 02/20/23 22-year-old presents to labor and delivery for induction of labor due to circumvolute placenta and intrauterine growth restriction. Her cervix is 3cm dilated, 70% effaced, -2 station. She is lucero irregularly. heart tones are 135 with moderate variability and reactive. Review of Systems All systems: negative Constitutional: Denies chills, Denies fever Eyes: denies blurred vision, denies pain Ears, nose, mouth and throat: Denies headache, Denies sore throat Cardiovascular: Denies chest pain, Denies shortness of breath Respiratory: Denies cough Gastrointestinal: Denies abdominal pain, Denies diarrhea, Denies nausea, Denies vomiting Genitourinary: Denies dysuria, Denies hematuria Musculoskeletal: Denies myalgias Integumentary: Denies pruritus, Denies rash Neurological: Denies numbness, Denies weakness Psychiatric: Denies anxiety, Denies depression Endocrine: Denies fatigue, Denies weight change Past Medical History Past Medical History: Asthma History of Any Multi-Drug Resistant Organisms: None Reported Past Surgical History: No Surgical Hx Reported Past Anesthesia/Blood Transfusion Reactions: No Reported Reaction Past Psychological History: No Psychological Hx Reported Smoking Status: Never smoker Past Alcohol Use History: None Reported Past Drug Use History: None Reported - Past Family History Mother Family Medical History: Hypertension Additional Family Medical History / Comment(s): anxiety Medications and Allergies Home Medications Medication Instructions Recorded Confirmed Type No Known Home Medications 02/20/23 02/20/23 History Allergies Allergy/AdvReac Type Severity Reaction Status Date / Time No Known Allergies Allergy Verified 02/20/23 06:17 Exam Osteopathic Statement: *. No significant issues noted on an osteopathic structural exam other than those noted in the History and Physical/Consult. Vital Signs Temp Pulse Resp Pulse Ox 02/20/23 06:17 96.6 F L 107 H 16 99 Intake and Output 02/19/23 02/20/23 02/20/23 22:59 06:59 14:59 Other: Weight 99.79 kg Heart: Regular rate and rhythm Lungs: Clear to auscultation bilaterally Abdomen: Soft, nontender Extremities: Negative Homans sign Results Result Diagrams: 02/20/23 06:30 Abnormal Lab Results - Last 24 Hours (Table) 02/20/23 Range/Units 06:30 RBC 3.73 L (3.80-5.40) m/uL Hgb 8.6 L (11.4-16.0) gm/dL Hct 26.5 L (34.0-46.0) % MCV 71.1 L (80.0-100.0) fL MCH 23.0 L (25.0-35.0) pg RDW 16.1 H (11.5-15.5) % Assessment and Plan (1) Encounter for induction of labor Current Visit: Yes Status: Acute Code(s): Z34.90 - ENCNTR FOR SUPRVSN OF NORMAL , UNSP, UNSP TRIMESTER SNOMED Code(s): 061752233 (2) 38 weeks gestation of Current Visit: No Status: Acute Code(s): Z3A.38 - 38 WEEKS GESTATION OF SNOMED Code(s): 89447357 (3) IUGR (intrauterine growth restriction) Current Visit: Yes Status: Acute Code(s): IHN0031 - SNOMED Code(s): 01504900 (4) Circumvallate placenta Current Visit: Yes Status: Acute Code(s): O43.119 - CIRCUMVALLATE PLACENTA, UNSPECIFIED TRIMESTER SNOMED Code(s): 0847338 Plan: 1. Induction of labor with amniotomy and Pitocin 2. Anticipate normal vaginal delivery
[2023-02-20] MEDS: AMPICILLIN 1,000 MG in SODIUM CHLORIDE 0.9% 50 ML IVPB SCH ×2 (10:42→19:37)
--- NOTE | 2023-02-20 14:36 | P.PROBDLV ---
Vaginal Delivery Note - . Vaginal Delivery Note: 22-year-old presents to labor and delivery for induction of labor due to circumvolute placenta and intrauterine growth restriction. Her cervix is 3cm dilated, 70% effaced, -2 station. She is lucero irregularly. heart tones are 135 with moderate variability and reactive. Amniotomy performed at 7:33 AM and clear fluid noted. Pitocin augmentation was also started. When she was uncomfortable she did get an epidural. Her cervix was completely dilated just after 1440. She pushed, delivered a viable male infant over intact perineum under epidural anesthesia at 1445. Nose and mouth bulb suctioned, cord clamped and cut, infant placed mother's abdomen. Apgars 8, 9, weight 7 lbs. 2 oz. Placenta delivered spontaneously, intact with three-vessel cord at 1446. Vagina, cervix, and perineum were inspected. First-degree midline laceration was repaired with 3-0 Vicryl. Estimated blood loss 300 mL. Mother and baby in stable condition.
[2023-02-20] MEDS ORDERED: BENZOCAINE/MENTHOL SPRAY 1 GM/SPRAY AEROSOL TOPICAL PRN (15:42)
[2023-02-20] MEDS ORDERED: HYDROCORTISONE 2.5% RECTAL CREAM 30 GM TUBE RECTAL PRN (15:42)
[2023-02-20] MEDS ORDERED: LANOLIN CREAM 5 GM TUBE TOPICAL PRN (15:42)
[2023-02-20] MEDS ORDERED: SIMETHICONE 80 MG CHEWABLE PO PRN (15:42)
[2023-02-20] MEDS ORDERED: diphenhydrAMINE 50 MG CAP PO PRN (15:42)
[2023-02-20] MEDS ORDERED: diphenhydrAMINE 25 MG CAP PO PRN (15:42)
[2023-02-20] MEDS ORDERED: diphenhydrAMINE 50 MG/ML 1 ML VIAL IVP PRN ×2 (15:42)
[2023-02-20] MEDS ORDERED: ZOLPIDEM 5 MG TAB PO PRN (15:42)
[2023-02-20] MEDS: IBUPROFEN 600 MG TAB PO PRN ×2 (16:08→22:05)
[2023-02-20] MEDS: ACETAMINOPHEN TAB 325 MG TAB PO PRN (17:53)
[2023-02-20] MEDS: SENNOSIDES-DOCUSATE SODIUM 1 EACH TAB PO SCH (20:12)
[2023-02-21] MEDS: IBUPROFEN 600 MG TAB PO PRN ×2 (04:18→13:07)
[2023-02-21 04:22] VITALS: RESP 16
[2023-02-21 05:43] LABS: Anisocytosis Slight; Basophils % (A) 0 %; Eosinophils # (A) 0.4 k/uL (0-0.7); Eosinophils % (A) 4 %; HCT 22.9 % (34.0-46.0); HGB 7.4 gm/dL (11.4-16.0); Hypochromasia Moderate; Lymphocytes # (A) 2.8 k/uL (1.0-4.8); Lymphocytes % (A) 32 %; MCH 23.2 pg (25.0-35.0); MCHC 32.4 g/dL (31.0-37.0); MCV 71.5 fL (80.0-100.0); Mean Platelet Volume 7.6; Microcytosis Moderate; Monocytes # (A) 0.5 k/uL (0-1.0); Monocytes % (A) 6 %; Neutrophils # (A) 4.8 k/uL (1.3-7.7); Neutrophils % (A) 56 %; Platelet Count 235 k/uL (150-450); Poikilocytosis Slight; RBC 3.21 m/uL (3.80-5.40); RDW 16.2 % (11.5-15.5); WBC 8.7 k/uL (3.8-10.6)
[2023-02-21 06:25] LABS: ALT 13 U/L (4-34); AST 24 U/L (14-36); African American GFR (CKD) >90 (>60 ml/min/1.73 sqM); Blood Urea Nitrogen 6 mg/dL (7-17); Non-African American GFR(CKD) >90 (>60 ml/min/1.73 sqM); Uric Acid 4.4 mg/dL (3.7-7.4)
[2023-02-21 06:48] LABS: LDH 266 U/L (120-246)
[2023-02-21] MEDS: ACETAMINOPHEN TAB 325 MG TAB PO PRN (07:53)
[2023-02-21] MEDS: SENNOSIDES-DOCUSATE SODIUM 1 EACH TAB PO SCH (07:53)
--- NOTE | 2023-02-21 07:59 | P.DS ---
Providers Date of admission: 02/20/23 06:00 Expected date of discharge: 02/21/23 Attending physician: Carli Oglesby Primary care physician: Stated None - Discharge Diagnosis(es) (1) Encounter for induction of labor Current Visit: Yes Status: Resolved (2) 38 weeks gestation of Current Visit: No Status: Resolved (3) IUGR (intrauterine growth restriction) Current Visit: Yes Status: Resolved (4) Circumvallate placenta Current Visit: Yes Status: Resolved (5) Normal vaginal delivery Current Visit: No Status: Acute Hospital Course: Patient presented for induction of labor. She underwent normal vaginal delivery. course has been uneventful. She denies nausea, vomiting, chest pain, shortness of breath or calf pain. Patient will be discharged home day #1 in stable condition to follow-up with me in 6 weeks. Plan - Discharge Summary New Discharge Prescriptions: New Ibuprofen [Motrin] 600 mg PO Q6HR PRN #30 tab PRN Reason: Mild Pain (Scale 1 To 3) Discharge Medication List Ibuprofen [Motrin] 600 mg PO Q6HR PRN #30 tab 02/21/23 [Rx] Follow up Appointment(s)/Referral(s): Carli Oglesby DO [Doctor of Osteopathic Medicine] - 6 Weeks Discharge Disposition: HOME SELF-CARE
[2023-02-21 08:04] VITALS: BP 142/79; PULSE 92; TEMP 97.8
== END 2023-02-21 15:37 | disposition home or self-care (01) | DRG 560 ==
LOC: 4FBP 06:00
PROVIDERS: ADMIT Obstetrics & Gynecology; ATTEND Obstetrics & Gynecology
PROC: 10E0XZZ Delivery of Products of Conception, External Approach (ICD-10-PCS; principal; 2023-02-20)
PROC: 0HQ9XZZ Repair Perineum Skin, External Approach (ICD-10-PCS; 2023-02-20)
PROC: 10907ZC Drainage of Amniotic Fluid, Therapeutic from Products of Conception, Via Natural or Artificial Opening (ICD-10-PCS; 2023-02-20)
PROC: 3E033VJ Introduction of Other Hormone into Peripheral Vein, Percutaneous Approach (ICD-10-PCS; 2023-02-20)
DX: O36.5930 Maternal care for other known or suspected poor fetal growth, third trimester, not applicable or unspecified (principal); J45.909 Unspecified asthma, uncomplicated; O43.113 Circumvallate placenta, third trimester; O70.0 First degree perineal laceration during delivery; O99.52 Diseases of the respiratory system complicating childbirth; Z37.0 Single live birth; Z3A.38 38 weeks gestation of pregnancy
CPT/HCPCS: 82565; 83615; 84450; 84460; 84520; 84550; 85025; 86850; 86900; 86901

== ENCOUNTER 2023-04-12 01:26 | Emergency (ER) | payer OTHER ==
[2023-04-12 01:37] VITALS: RESP 18; TEMP 97.9
[2023-04-12] MEDS ORDERED: MORPHINE SULFATE 4 MG/ML SYRINGE IV STA (01:44)
[2023-04-12] MEDS ORDERED: SODIUM CHLORIDE 0.9% 1,000 ML IV STA (01:44)
--- NOTE | 2023-04-12 01:54 | ED ---
Chest Pain HPI - General Chief Complaint: Chest Pain Stated Complaint: Vomiting/Chest Pain Time Seen by Provider: 04/12/23 01:42 Source: patient, RN notes reviewed, old records reviewed Mode of arrival: ambulatory Limitations: no limitations - History of Present Illness Initial Comments: This is a 22-year-old female to the emergency department for evaluation. Patient is about 2 months out of vaginal delivery coming in for evaluation of severe chest pain with significant discomfort in distress. Patient states the pain is severe and her blood pressure severely elevated she is anxious some mild shortness of breath. Patient is recent fever cough congestion does admit to weakness, denies or sick contacts is actively nausea with vomiting. MD Complaint: chest pain -: hour(s) Onset: during rest Pain Location: substernal Pain Radiation: none Severity: severe Severity scale (1-10): 9 Quality: tightness Consistency: constant Improves With: nothing Worsens With: nothing Anginal Symptoms: nausea, vomiting Treatments Prior to Arrival: none - Related Data Previous Rx's Medication Instructions Recorded Ibuprofen [Motrin] 600 mg PO Q6HR PRN #30 tab 02/21/23 Allergies Allergy/AdvReac Type Severity Reaction Status Date / Time No Known Allergies Allergy Verified 04/12/23 01:33 Review of Systems ROS Statement: Those systems with pertinent positive or pertinent negative responses have been documented in the HPI. ROS Other: All systems not noted in ROS Statement are negative. EKG Findings - EKG Comments: EKG Findings:: EKG is sinus 54 VA 132 QRS 80 QTC 389 Past Medical History Past Medical History: Asthma Additional Past Medical History / Comment(s): Obstetric history: Patient had a term vaginal deliveries 7 lbs. 5 oz. baby girl in 2019. History of Any Multi-Drug Resistant Organisms: None Reported Past Surgical History: No Surgical Hx Reported Past Anesthesia/Blood Transfusion Reactions: No Reported Reaction Past Psychological History: No Psychological Hx Reported Smoking Status: Never smoker Past Alcohol Use History: None Reported Past Drug Use History: None Reported - Past Family History Mother Family Medical History: Hypertension Additional Family Medical History / Comment(s): anxiety General Exam Limitations: no limitations General appearance: alert, in no apparent distress, anxious Head exam: Present: atraumatic, normocephalic, normal inspection Eye exam: Present: normal appearance, PERRL, EOMI. Absent: scleral icterus, conjunctival injection, periorbital swelling ENT exam: Present: normal exam, mucous membranes moist Neck exam: Present: normal inspection. Absent: tenderness, meningismus, lymphadenopathy Respiratory exam: Present: normal lung sounds bilaterally. Absent: respiratory distress, wheezes, rales, rhonchi, stridor Cardiovascular Exam: Present: regular rate, normal rhythm, normal heart sounds. Absent: systolic murmur, diastolic murmur, rubs, gallop, clicks GI/Abdominal exam: Present: soft, normal bowel sounds. Absent: distended, tenderness, guarding, rebound, rigid Extremities exam: Present: normal inspection, full ROM, normal capillary refill. Absent: tenderness, pedal edema, joint swelling, calf tenderness Back exam: Present: normal inspection Neurological exam: Present: alert, oriented X3, CN II-XII intact Psychiatric exam: Present: normal affect, normal mood Skin exam: Present: warm, dry, intact, normal color. Absent: rash Course Vital Signs 04/12/23 04/12/23 04/12/23 01:33 03:00 04:00 Temperature 97.9 F Pulse Rate 62 69 69 Respiratory 18 18 18 Rate Blood Pressure 204/104 169/112 168/117 O2 Sat by Pulse 98 96 97 Oximetry 04/12/23 06:00 Temperature Pulse Rate 71 Respiratory 18 Rate Blood Pressure 168/104 O2 Sat by Pulse 97 Oximetry - Reevaluation(s) Reevaluation #1: 04/12/23 02:19 Medical record is reviewed Reevaluation #2: 04/12/23 02:19 Patient's pain is improved Reevaluation #3: Patient informed results and questions are answered Reevaluation #4: 04/12/23 02:19 Was pt. sent in by a medical professional or institution (, PA, HAND MIXER, urgent care, hospital, or retirement...) When possible be specific @ -no Did you speak to anyone other than the patient for history (EMS, parent, family, police, friend...)? What history was obtained from this source @ -no Did you review nursing and triage notes (agree or disagree)? Why? @ -agree Are old charts reviewed (outside hosp., previous admission, EMS record, old EKG, old radiological studies, urgent care reports/EKG's, retirement records)? Report findings @ -yes Differential Diagnosis (chest pain, altered mental status, abdominal pain women, abdominal pain men, vaginal bleeding, weakness, fever, dyspnea, syncope, headache, dizziness, GI bleed, back pain, seizure, CVA, palpatations, mental health, musculoskeletal)? @ -prior EKG interpreted by me (3pts min.). @ -yes X-rays interpreted by me (1pt min.). @ -no CT interpreted by me (1pt min.). @ -yes U/S interpreted by me (1pt. min.). @ -no What testing was considered but not performed or refused? (CT, X-rays, U/S, labs)? Why? @ -none What meds were considered but not given or refused? Why? @ -none Did you discuss the management of the patient with other professionals (professionals i.e. , PA, HAND MIXER, lab, RT, psych nurse, social media assistant, radio maintainer, teacher, nuclear medicine officer, correctional casework specialist)? Give summary @ -no Was smoking cessation discussed for >3mins.? @ -no Was critical care preformed (if so, how long)? @ -no Were there social determinants of health that impacted care today? How? (Homelessness, low income, unemployed, alcoholism, drug addiction, transportation, low edu. Level, literacy, decrease access to med. care, custodial, rehab)? @ -none Was there de-escalation of care discussed even if they declined (Discuss DNR or withdrawal of care, Hospice)? DNR status @ -no What co-morbidities impacted this encounter? (DM, HTN, Smoking, COPD, CAD, Cancer, CVA, ARF, Chemo, Hep., AIDS, mental health diagnosis, sleep apnea, morbid obesity)? @ -none Was patient admitted / discharged? Hospital course, mention meds given and route, prescriptions, significant lab abnormalities, going to OR and other per tinent info. @ - 22 female with nonspecific chest pain. Severely elevated blood pressure on arrival computed tomography scan for dissection negative. Lab testing is otherwise normal patient can be discharged home, no PE is also noted that she does have recent vaginal delivery Discharged Undiagnosed new problem with uncertain prognosis? @ -no Drug Therapy requiring intensive monitoring for toxicity (Heparin, Nitro, Insulin, Cardizem)? @ -no Were any procedures done? @ -no Diagnosis/symptom? @ -Chest pain abdominal pain weakness Acute, or Chronic, or Acute on Chronic? @ -Acute Uncomplicated (without systemic symptoms) or Complicated (systemic symptoms)? @ -Complicated Side effects of treatment? @ -no Exacerbation, Progression, or Severe Exacerbation? @ -exacerbation Poses a threat to life or bodily function? How? (Chest pain, [place], [place], pneumonia, PE, COPD, DKA, ARF, appy, cholecystitis, CVA, Diverticulitis, Homicidal, Suicidal, threat to staff... and all critical care pts) @ -yes with post delivery complications around Reevaluation #5: 04/12/23 02:19 Differential Chest Pain: Stable Angina, Unstable Angina, STEMI, NSTEMI Aortic Dissection, Pneumothorax, Musculoskeletal, Esophageal Spasm GERD, Cholecystitis, Pancreatitis, Zoster, this is not meant to be an all-inclusive list. Chest Pain MDM - MDM 22 female with nonspecific chest pain. Severely elevated blood pressure on arrival computed tomography scan for dissection negative. Lab testing is otherwise normal patient can be discharged home, no PE is also noted that she does have recent vaginal delivery Disposition Clinical Impression: Chest pain, Hypertension Disposition: HOME SELF-CARE Condition: Good Instructions (If sedation given, give patient instructions): Chest Pain (ED), Hypertension (ED) Is patient prescribed a controlled substance at d/c from ED?: No Referrals: None,Stated [Primary Care Provider] - 1-2 days Time of Disposition: 06:45
[2023-04-12] MEDS ORDERED: ONDANSETRON 4 MG/2 ML VIAL IVP STA (01:57)
[2023-04-12 03:02] LABS: Anisocytosis Slight; Basophils % (A) 0 %; Eosinophils # (A) 0.3 k/uL (0-0.7); Eosinophils % (A) 4 %; HCT 31.1 % (34.0-46.0); Hypochromasia Moderate; Lymphocytes # (A) 2.6 k/uL (1.0-4.8); Lymphocytes % (A) 37 %; MCH 22.8 pg (25.0-35.0); MCHC 31.8 g/dL (31.0-37.0); MCV 71.8 fL (80.0-100.0); Mean Platelet Volume 7.4; Microcytosis Moderate; Monocytes # (A) 0.4 k/uL (0-1.0); Monocytes % (A) 6 %; Neutrophils # (A) 3.5 k/uL (1.3-7.7); Neutrophils % (A) 50 %; Platelet Count 362 k/uL (150-450); RBC 4.33 m/uL (3.80-5.40); RDW 18.3 % (11.5-15.5)
[2023-04-12 03:11] LABS: ALT 50 U/L (4-34); AST 57 U/L (14-36); African American GFR (CKD) >90 (>60 ml/min/1.73 sqM); Albumin 4.2 g/dL (3.5-5.0); Alkaline Phosphatase 91 U/L (38-126); Anion Gap 10 mmol/L; Blood Urea Nitrogen 7 mg/dL (7-17); Calcium 9.5 mg/dL (8.4-10.2); Carbon Dioxide 23 mmol/L (22-30); Chloride 105 mmol/L (98-107); Glucose 111 mg/dL (74-99); Magnesium 1.8 mg/dL (1.6-2.3); Non-African American GFR(CKD) >90 (>60 ml/min/1.73 sqM); Phosphorus 4.3 mg/dL (2.5-4.5); Potassium 3.7 mmol/L (3.5-5.1); Sodium 138 mmol/L (137-145); Total Bilirubin 0.4 mg/dL (0.2-1.3); Total Protein 7.6 g/dL (6.3-8.2)
[2023-04-12 03:12] LABS: HGB 9.9 gm/dL (11.4-16.0)
[2023-04-12 03:14] LABS: INR 0.9 (<1.2); Partial Thromboplastin Time 22.9 sec (22.0-30.0); Prothrombin Time 9.4 sec (9.0-12.0)
[2023-04-12 03:19] LABS: NT-Pro-B-Type Natriuretic Pept 61 pg/mL
[2023-04-12] MEDS ORDERED: HYDROmorphone 1 MG/ML 1 ML SYRINGE IVP STA ×2 (05:08→06:26)
[2023-04-12 06:11] VITALS: BP 168/104; PULSE 71
[2023-04-12] MEDS ORDERED: PROCHLORPERAZINE INJ 10 MG/2 ML VIAL IVP STA (06:26)
--- NOTE | 2023-04-12 06:43 | CT ---
EXAMINATION TYPE: CT angio chest CT DLP: 864.5 mGycm, Automated exposure control for dose reduction was used. DATE OF EXAM: 04/12/2023 4:35 AM COMPARISON: None. CLINICAL INDICATION:Female, 22 years old with history of pain; TECHNIQUE/CONTRAST: CTA scan of the thorax is performed with IV Contrast, patient injected with 75 mL of Isovue 370, pulm onary embolism protocol. MIP images are created and reviewed. FINDINGS: Pulmonary Artery: There is no evidence for a filling defect within the pulmonary vasculature to sugge st acute pulmonary embolism. The pulmonary artery is of normal size. Lungs/Pleura: No evidence of focal consolidation, pleural effusion or pneumothorax. Right upper lobe 4 mm pulmonary nodule (series 506, image 57). Minimal bibasilar subsegmental atelectasis. Airway: Large airways are patent. Heart: Mild cardiomegaly. No pericardial effusion. Vasculature: No evidence of aortic aneurysm. Mediastinum: No gross evidence of adenopathy. Musculoskeletal: No acute osseous abnormalities Soft Tissues: Unremarkable. Lower neck: No significant findings. Upper Abdomen: No significant finding. IMPRESSION: 1. No evidence of pulmonary embolism. 2. Mild cardiomegaly.
== END 2023-04-12 07:05 | disposition home or self-care (01) ==
LOC: EC 01:26
DX: R07.9 Chest pain, unspecified (principal); I10 Essential (primary) hypertension; J45.909 Unspecified asthma, uncomplicated
CPT/HCPCS: 36415; 93005; 85379; 83880; 80053; 83735; 84100; 84484; 85025; 85610; 85730; 71275; 99285; 96374; 96375 ×3; 96361; J2270; J0780; J2405; J1170; Q9967

== ENCOUNTER 2023-10-15 10:33 | Emergency (ER) | payer OTHER ==
--- NOTE | 2023-10-15 10:58 | ED ---
Chest Pain HPI - General Chief Complaint: Chest Pain Stated Complaint: Chest pain, back pain Time Seen by Provider: 10/15/23 10:57 Source: patient, RN notes reviewed Mode of arrival: EMS Limitations: no limitations - History of Present Illness Initial Comments: Patient is a 23-year-old female presented to ER with chief complaint of right- sided chest pain and mid back pain. She states this started in the middle of the night last night. She also was endorsing mild lightheadedness. She reports that she has had the symptoms in the past but her current symptoms are not as bad as prior. Denies any other medical issues. Denies any peripheral edema. She denies any recent fevers, cough, congestion, abdominal pain, constipation/diarrhea or urinary complaints. She denies any recent activities other than normal. - Related Data Home Medications Medication Instructions Recorded Confirmed No Known Home Medications 10/15/23 10/15/23 Allergies Allergy/AdvReac Type Severity Reaction Status Date / Time No Known Allergies Allergy Verified 10/15/23 13:18 Review of Systems ROS Statement: Those systems with pertinent positive or pertinent negative responses have been documented in the HPI. ROS Other: All systems not noted in ROS Statement are negative. EKG Findings - EKG Comments: EKG Findings:: EKG taken at 10: 52 shows a sinus rhythm with no acute ST segment or T wave abnormalities. Ventricular rate 79, UT interval 128, QRS duration 85, QT/QTc 397/431. Past Medical History Past Medical History: Asthma Additional Past Medical History / Comment(s): Obstetric history: Patient had a term vaginal deliveries 7 lbs. 5 oz. baby girl in 2019. History of Any Multi-Drug Resistant Organisms: None Reported Past Surgical History: No Surgical Hx Reported Past Anesthesia/Blood Transfusion Reactions: No Reported Reaction Past Psychological History: No Psychological Hx Reported Smoking Status: Never smoker Past Alcohol Use History: None Reported Past Drug Use History: None Reported - Past Family History Mother Family Medical History: Hypertension Additional Family Medical History / Comment(s): anxiety General Exam Limitations: no limitations General appearance: alert, in no apparent distress Head exam: Present: atraumatic, normocephalic, normal inspection Respiratory exam: Present: normal lung sounds bilaterally. Absent: respiratory distress, wheezes, rales, rhonchi, stridor Cardiovascular Exam: Present: regular rate, normal rhythm, normal heart sounds, other (Chest pain is reproducible on right side). Absent: systolic murmur, diastolic murmur, rubs, gallop, clicks Extremities exam: Present: normal inspection, full ROM, normal capillary refill. Absent: tenderness, pedal edema, joint swelling, calf tenderness Back exam: Present: normal inspection Neurological exam: Present: alert, oriented X3, CN II-XII intact Psychiatric exam: Present: normal affect, normal mood Skin exam: Present: warm, dry, intact, normal color. Absent: rash Course Vital Signs 10/15/23 10/15/23 10/15/23 10:41 12:24 13:39 Temperature 98.9 F Pulse Rate 83 65 76 Respiratory 16 18 18 Rate Blood Pressure 141/84 148/101 148/93 O2 Sat by Pulse 100 99 99 Oximetry 10/15/23 10/15/23 14:10 15:05 Temperature 98.0 F Pulse Rate 64 67 Respiratory 18 18 Rate Blood Pressure 141/100 148/93 O2 Sat by Pulse 99 97 Oximetry Chest Pain MDM - MDM Was pt. sent in by a medical professional or institution (, PA, DITCHING MACHINE OPERATOR, urgent ca re, hospital, or correction...) When possible be specific @ -No Did you speak to anyone other than the patient for history (EMS, parent, family, police, friend...)? What history was obtained from this source @ -No Did you review nursing and triage notes (agree or disagree)? Why? @ -I reviewed and agree with nursing and triage notes Were old charts reviewed (outside hosp., previous admission, EMS record, old EKG, old radiological studies, urgent care reports/EKG's, correction records)? Report findings @ -No old charts were reviewed Differential Diagnosis (chest pain, altered mental status, abdominal pain women, abdominal pain men, vaginal bleeding, weakness, fever, dyspnea, syncope, headache, dizziness, GI bleed, back pain, seizure, CVA, palpatations, mental health, musculoskeletal)? @-Differential Chest Pain: Stable Angina, Unstable Angina, STEMI, NSTEMI Aortic Dissection, Pneumothorax, Musculoskeletal, Esophageal Spasm GERD, Cholecystitis, Pancreatitis, Zoster, this is not meant to be an all-inclusive list. EKG interpreted by me (3pts min.). @ -As above X-rays interpreted by me (1pt min.). @ -X-ray interpreted by me shows no acute cardiopulmonary process. CT interpreted by me (1pt min.). @ -CTA negative for acute pulmonary embolism. No evidence of thoracic aortic aneurysm or dissection. No evidence of pneumonia, pleural or pericardial effusions. U/S interpreted by me (1pt. min.). @ -None done What testing was considered but not performed or refused? (CT, X-rays, U/S, labs)? Why? @ -None What meds were considered but not given or refused? Why? @ -None Did you discuss the management of the patient with other professionals (professionals i.e. , PA, DITCHING MACHINE OPERATOR, lab, RT, psych nurse, psychosocial rehabilitation counselor, floor director, teacher, structural engineering drafting officer, casework specialist)? Give summary @ -No Was smoking cessation discussed for >3mins.? @ -No Was critical care preformed (if so, how long)? @ -No Were there social determinants of health that impacted care today? How? (Homelessness, low income, unemployed, alcoholism, drug addiction, transportation, low edu. Level, literacy, decrease access to med. care, skilled nursing, rehab)? @ -No Was there de-escalation of care discussed even if they declined (Discuss DNR or withdrawal of care, Hospice)? DNR status @ -No What co-morbidities impacted this encounter? (DM, HTN, Smoking, COPD, CAD, Cancer, CVA, ARF, Chemo, Hep., AIDS, mental health diagnosis, sleep apnea, morbid obesity)? @ -None Was patient admitted / discharged? Hospital course, mention meds given and route, prescriptions, significant lab abnormalities, going to OR and other pertinent info. @ -Discharge. Patient is a 23-year-old female presenting to the ER with a chief complaint of chest pain. History and physical exam completed. Vitals stable. Patient no signs of acute distress and nontoxic-appearing. Chest pain is reproducible on the right. Lung sounds clear to auscultation bilaterally. Normal heart sounds. Labs obtained significant for a D-dimer of 0.77. CTA performed negative for acute process. Hemoglobin 9.1 which is baseline (labs drawn 04-12-2023 hemoglobin was 9.9). Urine without signs of infection. Urine hCG negative. Chest x-ray negative for acute cardiopulmonary process. EKG shows normal sinus rhythm with no acute ST segment or T wave abnormalities. Patient received IV fluids and analgesics with improvement of symptoms. Results discussed with patient, all questions answered. Patient will be discharged in stable condition with follow-up to PCP. Strict return parameters discussed. Patient expressed understanding and agreement with care plan. Case discussed with Dr. Elena, ED attending. Undiagnosed new problem with uncertain prognosis? @ -No Drug Therapy requiring intensive monitoring for toxicity (Heparin, Nitro, Insulin, Cardizem)? @ -No Were any procedures done? @ -No Diagnosis/symptom? @ -Atypical chest pain Acute, or Chronic, or Acute on Chronic? @ -Acute Uncomplicated (without systemic symptoms) or Complicated (systemic symptoms)? @ -Uncomplicated Side effects of treatment? @ -No Exacerbation, Progression, or Severe Exacerbation? @ -No Poses a threat to life or bodily function? How? (Chest pain, [place], [place], pneumonia, PE, COPD, DKA, ARF, appy, cholecystitis, CVA, Diverticulitis, Homicidal, Suicidal, threat to staff... and all critical care pts) @ -No Disposition Clinical Impression: Atypical chest pain Disposition: HOME SELF-CARE Condition: Stable Instructions (If sedation given, give patient instructions): Chest Pain (ED) Additional Instructions: Please follow-up with primary care in the next 1 to 2 days. Return to the ER for any new or worsening symptoms. Is patient prescribed a controlled substance at d/c from ED?: No Referrals: Radha Carrasquillo NPC [Family Provider] - 1-2 days Time of Disposition: 14:24
--- NOTE | 2023-10-15 11:31 | XR ---
EXAMINATION TYPE: XR chest 2V DATE OF EXAM: 10/15/2023 COMPARISON: NONE HISTORY: Chest pain TECHNIQUE: Frontal and lateral views of the chest are obtained. FINDINGS: There is no focal air space opacity. No evidence for pneumothorax. No pleural effusion. The cardiac silhouette size is within normal limits. The osseous structures are grossly intact. IMPRESSION: 1. No acute cardiopulmonary process.
[2023-10-15] MEDS: SODIUM CHLORIDE 0.9% 1,000 ML IV STA (11:40)
[2023-10-15 11:53] LABS: Anisocytosis Slight; Basophils # (A) 0.1 k/uL (0-0.2); Basophils % (A) 1 %; Eosinophils # (A) 0.3 k/uL (0-0.7); Eosinophils % (A) 3 %; HCT 30.2 % (34.0-46.0); HGB 9.1 gm/dL (11.4-16.0); Hypochromasia Marked; Lymphocytes # (A) 2.3 k/uL (1.0-4.8); Lymphocytes % (A) 28 %; MCV 69.9 fL (80.0-100.0); Mean Platelet Volume 7.8; Microcytosis Marked; Monocytes # (A) 0.4 k/uL (0-1.0); Monocytes % (A) 5 %; Neutrophils # (A) 4.9 k/uL (1.3-7.7); Neutrophils % (A) 60 %; Platelet Count 424 k/uL (150-450); Poikilocytosis Slight; RBC 4.32 m/uL (3.80-5.40); RDW 16.9 % (11.5-15.5); WBC 8.2 k/uL (3.8-10.6)
[2023-10-15 12:01] LABS: ALT 27 U/L (4-34); AST 32 U/L (14-36); African American GFR (CKD) >90 (>60 ml/min/1.73 sqM); Albumin 4.3 g/dL (3.5-5.0); Alkaline Phosphatase 91 U/L (38-126); Anion Gap 10 mmol/L; Blood Urea Nitrogen 9 mg/dL (7-17); Calcium 9.7 mg/dL (8.4-10.2); Carbon Dioxide 23 mmol/L (22-30); Chloride 108 mmol/L (98-107); Glucose 84 mg/dL (74-99); Magnesium 1.9 mg/dL (1.6-2.3); Non-African American GFR(CKD) >90 (>60 ml/min/1.73 sqM); Potassium 3.8 mmol/L (3.5-5.1); Sodium 141 mmol/L (137-145); Total Bilirubin 0.4 mg/dL (0.2-1.3); Total Protein 7.6 g/dL (6.3-8.2)
[2023-10-15 12:11] LABS: INR 0.8 (<1.2); Partial Thromboplastin Time 23.8 sec (22.0-30.0); Prothrombin Time 9.6 sec (10.0-12.5)
[2023-10-15] MEDS: KETOROLAC 15 MG/ML 1 ML VIAL IVP STA (12:20)
[2023-10-15 12:47] VITALS: RESP 18
[2023-10-15 13:20] LABS: Appearance,Urine Clear (Clear); Bilirubin,Urine Negative (Negative); Blood,Urine Negative (Negative); Color,Urine Colorless; Glucose,Urine (UA) Negative (Negative); Ketones,Urine Negative (Negative); Leukocyte Esterase,Urine Small (Negative); Mucus,Urine Rare /hpf; Nitrite,Urine Negative (Negative); Protein,Urine Negative (Negative); RBC,Urine 1 /hpf (0-5); Specific Gravity,Urine 1.007 (1.001-1.035); Squamous Epithelial Cell,Urine <1 /hpf (0-4); Urobilinogen,Urine <2.0 mg/dL (<2.0); WBC,Urine 2 /hpf (0-5)
--- NOTE | 2023-10-15 14:07 | CT ---
EXAMINATION: CTA CHEST WITH IV CONTRAST, CT PULMONARY ANGIOGRAM DATE OF EXAM: 10/15/2023 2:01 PM HISTORY: Chest pain with elevated d-dimer. TECHNIQUE: CTA examination of the chest was performed following the intravenous administration of iod inated contrast. Sagittal, coronal and 3-D reformatted images were provided. CT dose lowering techn[employer] ues were used, to include: automated exposure control, adjustment for patient size, and or use of ite rative reconstruction. 100 mL of Isovue 300 was given intravenously. COMPARISON: 04/12/2023. FINDINGS: Lungs: Normal. Pleura: Normal. Mediastinum and Jennifer: Normal. Pulmonary Arteries: Normal. Cardiovascular: Normal. Upper Abdomen: Normal. Chest Wall: Normal. Musculoskeletal: Normal. IMPRESSION: 1. No evidence of pulmonary blood. 2. No evidence of thoracic aortic aneurysm or dissection. 3. No evidence of pneumonia, pleural or pericardial effusions.
[2023-10-15 15:39] VITALS: BP 148/93; PULSE 67; TEMP 98
== END 2023-10-15 15:05 | disposition home or self-care (01) ==
LOC: EC 10:33
DX: R07.89 Other chest pain (principal); J45.909 Unspecified asthma, uncomplicated
CPT/HCPCS: 36415; 93005; 85379; 80053; 83735; 84484; 85025; 85610; 85730; 81001; 81025; 71046; 71275; 99285; 96374; 96361; J1885; Q9967

== ENCOUNTER 2024-01-18 09:56 | Emergency (ER) | payer OTHER ==
[2024-01-18 10:04] VITALS: RESP 18; TEMP 98.2
[2024-01-18] MEDS: KETOROLAC 15 MG/ML 1 ML VIAL IVP STA (10:53)
[2024-01-18] MEDS: ONDANSETRON 4 MG/2 ML VIAL IVP STA (10:54)
[2024-01-18] MEDS: MECLIZINE 12.5 MG TAB PO STA (10:54)
[2024-01-18] MEDS: SODIUM CHLORIDE 0.9% 1,000 ML IV STA (10:56)
--- NOTE | 2024-01-18 11:19 | XR ---
EXAMINATION TYPE: XR chest 2V DATE OF EXAM: 01/18/2024 11:02 AM CLINICAL INDICATION:Female, 23 years old with history of cough; COMPARISON: Chest radiographs from10/15/2023 TECHNIQUE: XR chest 2V Frontal and lateral views of the chest. FINDINGS: Lungs/Pleura: There is no evidence of pleural effusion, focal consolidation, or pneumothorax. Pulmonary vascularity: Unremarkable. Heart/mediastinum: Cardiomediastinal silhouette is unremarkable. Musculoskeletal: No acute osseous pathology. IMPRESSION: No acute cardiopulmonary disease/process.
--- NOTE | 2024-01-18 11:24 | ED ---
Dizziness HPI - General Chief Complaint: Dizziness Stated Complaint: Dizziness Time Seen by Provider: 01/18/24 10:05 Source: patient, RN notes reviewed Mode of arrival: ambulatory Limitations: no limitations - History of Present Illness Initial Comments: 23-year-old female presents emergency department complaint of lightheadedness, dizziness. Patient states she does not feel well the last several days she has had a cough for 1 week. She states that she did have a headache which is, gone but has almost resolved no visual disturbance no chest pain she has no current shortness of breath leg pain leg swelling abdominal pain denies any chance of . Patient states she is on Wegovy injections and states that she has not been eating or drinking as much. - Related Data Home Medications Medication Instructions Recorded Confirmed No Known Home Medications 10/15/23 10/15/23 Allergies Allergy/AdvReac Type Severity Reaction Status Date / Time No Known Allergies Allergy Verified 01/18/24 10:04 Review of Systems ROS Statement: Those systems with pertinent positive or pertinent negative responses have been documented in the HPI. ROS Other: All systems not noted in ROS Statement are negative. Past Medical History Past Medical History: Asthma Additional Past Medical History / Comment(s): Obstetric history: Patient had a term vaginal deliveries 7 lbs. 5 oz. baby girl in 2019. History of Any Multi-Drug Resistant Organisms: None Reported Past Surgical History: No Surgical Hx Reported Past Anesthesia/Blood Transfusion Reactions: No Reported Reaction Past Psychological History: No Psychological Hx Reported Smoking Status: Never smoker Past Alcohol Use History: Occasional Past Drug Use History: None Reported - Past Family History Mother Family Medical History: Hypertension Additional Family Medical History / Comment(s): anxiety General Exam Limitations: no limitations General appearance: alert, in no apparent distress Head exam: Present: atraumatic, normocephalic, normal inspection Eye exam: Present: normal appearance, PERRL, EOMI. Absent: scleral icterus, conjunctival injection, periorbital swelling ENT exam: Present: normal exam, mucous membranes moist Neck exam: Present: normal inspection. Absent: tenderness, meningismus, lymphadenopathy Respiratory exam: Present: normal lung sounds bilaterally. Absent: respiratory distress, wheezes, rales, rhonchi, stridor Cardiovascular Exam: Present: normal rhythm, tachycardia, normal heart sounds. Absent: systolic murmur, diastolic murmur, rubs, gallop, clicks GI/Abdominal exam: Present: soft, normal bowel sounds. Absent: distended, tenderness, guarding, rebound, rigid Neurological exam: Present: alert, oriented X3, CN II-XII intact, reflexes nor mal. Absent: motor sensory deficit Course Vital Signs 01/18/24 01/18/24 10:02 14:46 Temperature 98.2 F Pulse Rate 110 H 106 H Respiratory 18 18 Rate Blood Pressure 115/76 126/77 O2 Sat by Pulse 98 98 Oximetry EKG Findings - EKG Comments: EKG Findings:: EKG performed at 10: 27 sinus tachycardia with short MN rate of 101 MN 104 QRS 85 QT/QTc 343/401 - EKG Results: EKG: interpreted by [facility]SE Medical Decision Making - Medical Decision Making Was pt. sent in by a medical professional or institution (, [facility], FRICKERTRON CHECKER, urgent care, hospital, or longterm...) When possible be specific @ -No Did you speak to anyone other than the patient for history (EMS, parent, family, police, friend...)? What history was obtained from this source @ -No Did you review nursing and triage notes (agree or disagree)? Why? @ -I reviewed and agree with nursing and triage notes Were old charts reviewed (outside hosp., previous admission, EMS record, old EKG, old radiological studies, urgent care reports/EKG's, longterm records)? Report findings @ -No old charts were reviewed Differential Diagnosis (chest pain, altered mental status, abdominal pain women, abdominal pain men, vaginal bleeding, weakness, fever, dyspnea, syncope, headache, dizziness, GI bleed, back pain, seizure, CVA, palpatations, mental health, musculoskeletal)? @ -Differential Dizziness: Benign paroxysmal positional Vertigo, Menieres disease, otitis media, acoustic neuroma, vertebrobasilar insufficiency, cerebellar stroke, encephalitis, hypovolemic, arrhythmia, coronary artery syndrome, anemia, this is not meant to be an all-inclusive list EKG interpreted by me (3pts min.). @ -As above X-rays interpreted by me (1pt min.). @ -Chest x-ray shows no acute cardiopulmonary process CT interpreted by me (1pt min.). @ -None done U/S interpreted by me (1pt. min.). @ -None done What testing was considered but not performed or refused? (CT, X-rays, U/S, labs)? Why? @ -None What meds were considered but not given or refused? Why? @ -None Did you discuss the management of the patient with other professionals (professionals i.e. , PA, FRICKERTRON CHECKER, lab, RT, psych nurse, social research assistant, seed and fertilizer specialist, teacher, security police officer, medical case manager)? Give summary @ -No Was smoking cessation discussed for >3mins.? @ -No Was critical care preformed (if so, how long)? @ -No Were there social determinants of health that impacted care today? How? (Homelessness, low income, unemployed, alcoholism, drug addiction, transportation, low edu. Level, literacy, decrease access to med. care, senior living, rehab)? @ -No Was there de-escalation of care discussed even if they declined (Discuss DNR or withdrawal of care, Hospice)? DNR status @ -No What co-morbidities impacted this encounter? (DM, HTN, Smoking, COPD, CAD, Cancer, CVA, ARF, Chemo, Hep., AIDS, mental health diagnosis, sleep apnea, morbid obesity)? @ -None Was patient admitted / discharged? Hospital course, mention meds given and route, prescriptions, significant lab abnormalities, going to OR and other pertinent info. @ -This charge patient found to be acutely dehydrated she felt better after IV fluids. Patient is found to have positive test which she states she had mental cycle 3 weeks ago. She has no abdominal pain. And denied prior chance. She will follow-up with her ECONOMIC MANAGER Dr. Oglesby she is advised that she needs to discontinue her Wegovy Undiagnosed new problem with uncertain prognosis? @ -No Drug Therapy requiring intensive monitoring for toxicity (Heparin, Nitro, Insulin, Cardizem)? @ -No Were any procedures done? @ -No Diagnosis/symptom? @ -Dehydration dizziness, Acute, or Chronic, or Acute on Chronic? @ -Acute Uncomplicated (without systemic symptoms) or Complicated (systemic symptoms)? @ -Uncomplicated Side effects of treatment? @ -No Exacerbation, Progression, or Severe Exacerbation? @ -No Poses a threat to life or bodily function? How? (Chest pain, [place], [place], pneumonia, PE, COPD, DKA, ARF, appy, cholecystitis, CVA, Diverticulitis, Homicidal, Suicidal, threat to staff... and all critical care pts) @ -No - Lab Data Result diagrams: 01/18/24 10:31 01/18/24 10:31 Lab Results 01/18/24 01/18/24 01/18/24 Range/Units 10:27 10:31 10:31 WBC 6.2 (3.8-10.6) k/uL RBC 5.02 (3.80-5.40) m/uL Hgb 10.4 L (11.4-16.0) gm/dL Hct 34.2 (34.0-46.0) % MCV 68.1 L (80.0-100.0) fL MCH 20.7 L (25.0-35.0) pg MCHC 30.3 L (31.0-37.0) g/dL RDW 16.8 H (11.5-15.5) % Plt Count 331 (150-450) k/uL MPV 7.8 Neutrophils % 63 % Lymphocytes % 25 % Monocytes % 6 % Eosinophils % 4 % Basophils % 0 % Neutrophils # 3.9 (1.3-7.7) k/uL Lymphocytes # 1.5 (1.0-4.8) k/uL Monocytes # 0.4 (0-1.0) k/uL Eosinophils # 0.3 (0-0.7) k/uL Basophils # 0.0 (0-0.2) k/uL Hypochromasia Marked Anisocytosis Slight Microcytosis Marked Sodium (137-145) mmol/L Potassium (3.5-5.1) mmol/L Chloride (98-107) mmol/L Carbon Dioxide (22-30) mmol/L Anion Gap mmol/L BUN (7-17) mg/dL Creatinine (0.52-1.04) mg/dL Est GFR (CKD-EPI)AfAm (>60 ml/min/1.73 sqM) Est GFR (CKD-EPI)NonAf (>60 ml/min/1.73 sqM) Glucose (74-99) mg/dL Calcium (8.4-10.2) mg/dL Magnesium (1.6-2.3) mg/dL Total Bilirubin (0.2-1.3) mg/dL AST (14-36) U/L ALT (4-34) U/L Alkaline Phosphatase (38-126) U/L Total Protein (6.3-8.2) g/dL Albumin (3.5-5.0) g/dL Lipase (23-300) U/L Urine Color Light Yellow Urine Appearance Clear (Clear) Urine pH 6.5 (5.0-8.0) Ur Specific [place] 1.019 (1.001-1.035) Urine Protein Trace H (Negative) Urine Glucose (UA) Negative (Negative) Urine Ketones 2+ H (Negative) Urine Blood Negative (Negative) Urine Nitrite Negative (Negative) Urine Bilirubin Negative (Negative) Urine Urobilinogen <2.0 (<2.0) mg/dL Ur Leukocyte Esterase Negative (Negative) Urine HCG, Qual (Not Detectd) Influenza Type A (PCR) Not Detected (Not Detectd) Influenza Type B (PCR) Not Detected (Not Detectd) RSV (PCR) Not Detected (Not Detectd) SARS-CoV-2 (PCR) Not Detected (Not Detectd) 01/18/24 01/18/24 Range/Units 10:31 12:53 WBC (3.8-10.6) k/uL RBC (3.80-5.40) m/uL Hgb (11.4-16.0) gm/dL Hct (34.0-46.0) % MCV (80.0-100.0) fL MCH (25.0-35.0) pg MCHC (31.0-37.0) g/dL RDW (11.5-15.5) % Plt Count (150-450) k/uL MPV Neutrophils % % Lymphocytes % % Monocytes % % Eosinophils % % Basophils % % Neutrophils # (1.3-7.7) k/uL Lymphocytes # (1.0-4.8) k/uL Monocytes # (0-1.0) k/uL Eosinophils # (0-0.7) k/uL Basophils # (0-0.2) k/uL Hypochromasia Anisocytosis Microcytosis Sodium 138 (137-145) mmol/L Potassium 3.9 (3.5-5.1) mmol/L Chloride 107 (98-107) mmol/L Carbon Dioxide 21 L (22-30) mmol/L Anion Gap 10 mmol/L BUN 8 (7-17) mg/dL Creatinine 0.82 (0.52-1.04) mg/dL Est GFR (CKD-EPI)AfAm >90 (>60 ml/min/1.73 sqM) Est GFR (CKD-EPI)NonAf >90 (>60 ml/min/1.73 sqM) Glucose 77 (74-99) mg/dL Calcium 9.4 (8.4-10.2) mg/dL Magnesium 2.0 (1.6-2.3) mg/dL Total Bilirubin 0.8 (0.2-1.3) mg/dL AST 25 (14-36) U/L ALT 17 (4-34) U/L Alkaline Phosphatase 74 (38-126) U/L Total Protein 7.9 (6.3-8.2) g/dL Albumin 4.6 (3.5-5.0) g/dL Lipase 375 H (23-300) U/L Urine Color Urine Appearance (Clear) Urine pH (5.0-8.0) Ur Specific [place] (1.001-1.035) Urine Protein (Negative) Urine Glucose (UA) (Negative) Urine Ketones (Negative) Urine Blood (Negative) Urine Nitrite (Negative) Urine Bilirubin (Negative) Urine Urobilinogen (<2.0) mg/dL Ur Leukocyte Esterase (Negative) Urine HCG, Qual Detected (Not Detectd) Influenza Type A (PCR) (Not Detectd) Influenza Type B (PCR) (Not Detectd) RSV (PCR) (Not Detectd) SARS-CoV-2 (PCR) (Not Detectd) Disposition Clinical Impression: , Dehydration, Lightheaded Disposition: HOME SELF-CARE Condition: Stable Instructions (If sedation given, give patient instructions): Dizziness (ED) Additional Instructions: Please return to the Emergency Department if symptoms worsen or any other concerns. Is patient prescribed a controlled substance at d/c from ED?: No Referrals: Richard Pack DO [Primary Care Provider] - 1-2 days Time of Disposition: 14:33
[2024-01-18 11:27] LABS: Anisocytosis Slight; Basophils % (A) 0 %; Eosinophils # (A) 0.3 k/uL (0-0.7); Eosinophils % (A) 4 %; HCT 34.2 % (34.0-46.0); HGB 10.4 gm/dL (11.4-16.0); Hypochromasia Marked; Lymphocytes # (A) 1.5 k/uL (1.0-4.8); Lymphocytes % (A) 25 %; MCH 20.7 pg (25.0-35.0); MCHC 30.3 g/dL (31.0-37.0); MCV 68.1 fL (80.0-100.0); Mean Platelet Volume 7.8; Microcytosis Marked; Monocytes # (A) 0.4 k/uL (0-1.0); Monocytes % (A) 6 %; Neutrophils # (A) 3.9 k/uL (1.3-7.7); Neutrophils % (A) 63 %; Platelet Count 331 k/uL (150-450); RBC 5.02 m/uL (3.80-5.40); RDW 16.8 % (11.5-15.5); WBC 6.2 k/uL (3.8-10.6)
[2024-01-18 11:48] LABS: ALT 17 U/L (4-34); AST 25 U/L (14-36); African American GFR (CKD) >90 (>60 ml/min/1.73 sqM); Albumin 4.6 g/dL (3.5-5.0); Alkaline Phosphatase 74 U/L (38-126); Anion Gap 10 mmol/L; Blood Urea Nitrogen 8 mg/dL (7-17); Calcium 9.4 mg/dL (8.4-10.2); Carbon Dioxide 21 mmol/L (22-30); Chloride 107 mmol/L (98-107); Glucose 77 mg/dL (74-99); Lipase 375 U/L (23-300); Non-African American GFR(CKD) >90 (>60 ml/min/1.73 sqM); Potassium 3.9 mmol/L (3.5-5.1); Sodium 138 mmol/L (137-145); Total Bilirubin 0.8 mg/dL (0.2-1.3); Total Protein 7.9 g/dL (6.3-8.2)
[2024-01-18 13:53] LABS: Appearance,Urine Clear (Clear); Bilirubin,Urine Negative (Negative); Blood,Urine Negative (Negative); Color,Urine Light Yellow; Glucose,Urine (UA) Negative (Negative); Ketones,Urine 2+ (Negative); Leukocyte Esterase,Urine Negative (Negative); Nitrite,Urine Negative (Negative); PH, Urine 6.5 (5.0-8.0); Protein,Urine Trace (Negative); Specific Gravity,Urine 1.019 (1.001-1.035); Urobilinogen,Urine <2.0 mg/dL (<2.0)
[2024-01-18 14:48] VITALS: BP 126/77; PULSE 106
== END 2024-01-18 14:47 | disposition home or self-care (01) ==
LOC: EC 09:56
DX: O99.280 Endocrine, nutritional and metabolic diseases complicating pregnancy, unspecified trimester (principal); E86.0 Dehydration; Z11.52 Encounter for screening for COVID-19; Z3A.00 Weeks of gestation of pregnancy not specified
CPT/HCPCS: 99284 ×2; 96374 ×2; 96375 ×2; 96361 ×2; 36415; 93005; 80053; 83690; 83735; 85025; 81003; 81025; 87636; 71046; J2405; J1885

== ENCOUNTER 2024-02-21 13:52 | Observation (INO) | payer OTHER ==
--- NOTE | 2024-02-21 14:06 | ED ---
Weakness HPI - General Chief complaint: Weakness Stated complaint: Dizziness Time Seen by Provider: 02/21/24 14:00 Source: patient Mode of arrival: wheelchair Limitations: no limitations - Related Data Home Medications Medication Instructions Recorded Confirmed No Known Home Medications 10/15/23 10/15/23 Allergies Allergy/AdvReac Type Severity Reaction Status Date / Time No Known Allergies Allergy Verified 02/21/24 13:59 Review of Systems ROS Statement: Those systems with pertinent positive or pertinent negative responses have been documented in the HPI. ROS Other: All systems not noted in ROS Statement are negative. Past Medical History Past Medical History: Asthma Additional Past Medical History / Comment(s): Obstetric history: Patient had a term vaginal deliveries 7 lbs. 5 oz. baby girl in 2019. History of Any Multi-Drug Resistant Organisms: None Reported Past Surgical History: No Surgical Hx Reported Past Anesthesia/Blood Transfusion Reactions: No Reported Reaction Past Psychological History: No Psychological Hx Reported Smoking Status: Never smoker Past Alcohol Use History: Occasional Past Drug Use History: None Reported - Past Family History Mother Family Medical History: Hypertension Additional Family Medical History / Comment(s): anxiety General Exam Limitations: no limitations General appearance: alert, in no apparent distress Head exam: Present: atraumatic, normocephalic, normal inspection Eye exam: Present: normal appearance, PERRL, EOMI. Absent: scleral icterus, conjunctival injection, periorbital swelling ENT exam: Present: normal exam, mucous membranes moist Neck exam: Present: normal inspection. Absent: tenderness, meningismus, lymphadenopathy Respiratory exam: Present: normal lung sounds bilaterally. Absent: respiratory distress, wheezes, rales, rhonchi, stridor Cardiovascular Exam: Present: regular rate, normal rhythm, normal heart sounds. Absent: systolic murmur, diastolic murmur, rubs, gallop, clicks GI/Abdominal exam: Present: soft, normal bowel sounds. Absent: distended, tenderness, guarding, rebound, rigid Extremities exam: Present: normal inspection, full ROM, normal capillary refill. Absent: tenderness, pedal edema, joint swelling, calf tenderness Back exam: Present: normal inspection Neurological exam: Present: alert, oriented X3, CN II-XII intact Psychiatric exam: Present: normal affect, normal mood Skin exam: Present: warm, dry, intact, normal color. Absent: rash Course Vital Signs 02/21/24 13:55 Temperature 98.1 F Pulse Rate 113 H Respiratory 16 Rate Blood Pressure 101/67 O2 Sat by Pulse 100 Oximetry EKG Findings - EKG Comments: EKG Findings:: EKG is sinus tachycardia 103 NH 113 QRS 78 QTc 396 - EKG Results: EKG: interpreted by ERMD Disposition Referrals: Richard Pack DO [Primary Care Provider] - 1-2 days
[2024-02-21] MEDS: SODIUM CHLORIDE 0.9% 1,000 ML IV STA (14:25)
[2024-02-21 14:40] LABS: Anisocytosis Slight; Basophils # (A) 0.1 k/uL (0-0.2); Basophils % (A) 1 %; Eosinophils # (A) 0.2 k/uL (0-0.7); Eosinophils % (A) 2 %; HCT 25.5 % (34.0-46.0); Hypochromasia Moderate; Lymphocytes # (A) 1.6 k/uL (1.0-4.8); Lymphocytes % (A) 14 %; MCH 23.7 pg (25.0-35.0); MCHC 33.5 g/dL (31.0-37.0); MCV 70.9 fL (80.0-100.0); Mean Platelet Volume 7.7; Microcytosis Marked; Monocytes # (A) 0.5 k/uL (0-1.0); Monocytes % (A) 4 %; Neutrophils # (A) 9.6 k/uL (1.3-7.7); Neutrophils % (A) 79 %; Platelet Count 353 k/uL (150-450); RDW 18.4 % (11.5-15.5); WBC 12.2 k/uL (3.8-10.6)
[2024-02-21 14:43] LABS: HGB 8.5 gm/dL (11.4-16.0)
[2024-02-21 14:52] LABS: INR 0.9 (<1.2); Prothrombin Time 10.2 sec (10.0-12.5)
[2024-02-21 14:53] LABS: ALT 12 U/L (4-34); AST 25 U/L (14-36); African American GFR (CKD) >90 (>60 ml/min/1.73 sqM); Albumin 3.9 g/dL (3.5-5.0); Alkaline Phosphatase 59 U/L (38-126); Anion Gap 10 mmol/L; Blood Urea Nitrogen 10 mg/dL (7-17); Calcium 9.6 mg/dL (8.4-10.2); Carbon Dioxide 19 mmol/L (22-30); Chloride 105 mmol/L (98-107); Glucose 128 mg/dL (74-99); Magnesium 1.7 mg/dL (1.6-2.3); Non-African American GFR(CKD) >90 (>60 ml/min/1.73 sqM); Phosphorus 4.2 mg/dL (2.5-4.5); Sodium 134 mmol/L (137-145); Total Bilirubin 0.6 mg/dL (0.2-1.3); Total Protein 6.9 g/dL (6.3-8.2)
[2024-02-21 15:02] LABS: NT-Pro-B-Type Natriuretic Pept 28 pg/mL
--- NOTE | 2024-02-21 17:19 | US ---
EXAMINATION TYPE: Transabdominal DATE OF EXAM: 02/21/2024 4:36 PM COMPARISON: NONE CLINICAL INDICATION: Female, 23 years old with history of miscarriage?; heavy bleeding with clots, EXAM PERFORMED: OBTA EXAM MEASUREMENTS: GESTATIONAL AGE / DATING Physician Established: Not yet established Dates by LMP: (8 weeks/5 days) EDC: 09/27/2024 Dates by First Scan: No previous this is first scan Dates by Current Scan for: No IUP seen at this time MATERNAL ANATOMY Uterus: 12.3 x 7.5 x 6.2cm Right Ovary: 2.6 x 2.1 x 1.7cm Left Ovary: 3.1 x 3.0 x 2.3cm Post CDS / Adnexa: wnl Presence of free fluid: no Presence of corpus luteal cyst: not seen Presence of subchorionic bleed: no GESTATION / SURVEY 2.5cm endometrium with mobile debris - probable blood, seen within, no gestation sac seen, spontaneo us AB Date of LMP: 12/22/2023 Beta HcG (if available): pending IMPRESSION: 1. Endometriomas as noted
[2024-02-21] MEDS ORDERED: ONDANSETRON 4 MG/2 ML VIAL IVP PRN (18:51)
[2024-02-21] MEDS ORDERED: NALOXONE 0.4 MG/ML 1 ML VIAL IV PRN (18:51)
[2024-02-21] MEDS: SODIUM CHLORIDE 0.9% 1,000 ML IV SCH (19:00)
--- NOTE | 2024-02-21 19:13 | P.OBCN ---
History of Present Illness Consult date: 02/21/24 Reason for consult: early problem Chief complaint: heavy vaginal bleeding in , lightheadedness History of present illness: Ms. Moreno is a 23 year old at approximately 8 weeks and 5 days gestation by approximate LMP of 12/22/23 who presents to the ER with complaints of heavy vaginal bleeding in , passing fist-sized clots, and light-headedness. She found out she was approximately 4 weeks ago when she presented to the ER with a chief complaint of dizziness and had a positive urine test. A serum BHCG was not drawn at that time. She began bleeding 2 days ago and it got progressively heavier until this morning when she began passing multiple fist-sized clots and feeling lightheaded. Upon arrival to the ER, she was tachycardic to 110 and her hemoglobin was noted to drop from 10 to 8.5. The patient normally follows with Dr. Oglesby for gynecologic care. The patient has only had water to drink today and has not eaten anything. Obstetric history: 3 FTVD, one complicated by marginal cord insertion Gynecologic history: LMP 12/22/23, approximately. Patient endorses regular monthly menses. Past medical history: patient denies Medications: none Surgeries: none Social history: patient denies smoking tobacco, drinking alcohol, and using recreational drugs Past Medical History Past Medical History: Asthma Additional Past Medical History / Comment(s): Obstetric history: Patient had a term vaginal deliveries 7 lbs. 5 oz. baby girl in 2019. History of Any Multi-Drug Resistant Organisms: None Reported Past Surgical History: No Surgical Hx Reported Past Anesthesia/Blood Transfusion Reactions: No Reported Reaction Past Psychological History: No Psychological Hx Reported Smoking Status: Never smoker Past Alcohol Use History: Occasional Past Drug Use History: None Reported - Past Family History Mother Family Medical History: Hypertension Additional Family Medical History / Comment(s): anxiety Medications and Allergies Home Medications Medication Instructions Recorded Confirmed Type No Known Home Medications 10/15/23 10/15/23 History Allergies Allergy/AdvReac Type Severity Reaction Status Date / Time No Known Allergies Allergy Verified 02/21/24 13:59 Exam Vital Signs Temp Pulse Resp BP Pulse Ox 02/21/24 15:21 87 16 101/61 02/21/24 13:55 98.1 F 113 H 16 101/67 100 Intake and Output 07/02/21/24 02/21/24 06:59 14:59 22:59 Other: Weight 99.79 kg Focused physical exam is performed. After a bolus of fluids, the patient's is normotensive and heart rate is normal. Pelvis is tender to palpation. Sterile speculum exam is performed and dark red blood clots are noted in the vaginal vault. Cervix is 1cm dilated. Uterus is approximately 12 week size on bimanual exam and is tender to palpation. Extremities are non-tender and non-edematous. Results Result Diagrams: 02/21/24 14:12 02/21/24 14:12 Abnormal Lab Results - Last 24 Hours (Table) 02/21/24 02/21/24 02/21/24 Range/Units 14:12 14:12 14:12 WBC 12.2 H (3.8-10.6) k/uL RBC 3.60 L (3.80-5.40) m/uL Hgb 8.5 L D (11.4-16.0) gm/dL Hct 25.5 L (34.0-46.0) % MCV 70.9 L (80.0-100.0) fL MCH 23.7 L (25.0-35.0) pg RDW 18.4 H (11.5-15.5) % Neutrophils # 9.6 H (1.3-7.7) k/uL APTT 19.0 L (22.0-30.0) sec Sodium 134 L (137-145) mmol/L Carbon Dioxide 19 L (22-30) mmol/L Glucose 128 H (74-99) mg/dL Assessment and Plan Assessment: 23 year old with incomplete presents with symptomatic anemia secondary to heavy bleeding Plan: 1. Incomplete . No IUP appreciated in the uterus but very thickened and irregular endometrium, suspicious for retained products of conception. BHCG 90,000. Patient arrived with tachycardia and lightheadedness. Hgb has dropped by 2 since last ER visit 4 weeks ago. Dispo: Will proceed with urgent suction D&C for symptomatic anemia secondary to retained products of conception. Patient has been NPO all day. Anesthesia notified. I personally reviewed the risks of suction D&C with the patient includ ing risk of bleeding, infection, damage to surrounding structures, and uterine perforation. All questions answered. The patient desires to proceed with surgery as discussed.
[2024-02-21 19:30] LABS: Appearance,Urine Cloudy (Clear); Bilirubin,Urine Negative (Negative); Blood,Urine Large (Negative); Color,Urine Yellow; Glucose,Urine (UA) Negative (Negative); Hyaline Casts,Urine 12 /lpf (0-2); Ketones,Urine 2+ (Negative); Leukocyte Esterase,Urine Large (Negative); Mucus,Urine Occasional /hpf; Nitrite,Urine Negative (Negative); PH, Urine 6.5 (5.0-8.0); Protein,Urine 1+ (Negative); RBC,Urine >182 /hpf (0-5); Specific Gravity,Urine 1.015 (1.001-1.035); Squamous Epithelial Cell,Urine 1 /hpf (0-4); Urobilinogen,Urine <2.0 mg/dL (<2.0); WBC,Urine 47 /hpf (0-5)
[2024-02-21] MEDS: IV FLUID CONTINUATION 1,000 ML IV ONE ×2 (20:02→20:07)
[2024-02-21] MEDS ORDERED: PROPOFOL 10 MG/ML 20 ML VIAL IV ONE (20:07)
[2024-02-21] MEDS ORDERED: ONDANSETRON 4 MG/2 ML VIAL ONE (20:07)
[2024-02-21] MEDS ORDERED: LIDOCAINE 1% INJ 10MG/ML (20 ML MDV) ONE (20:07)
[2024-02-21] MEDS ORDERED: fentaNYL (PF) 50 MCG/ML 2 ML AMP ONE (20:07)
[2024-02-21] MEDS ORDERED: KETOROLAC 15 MG/ML 1 ML VIAL ONE (20:07)
[2024-02-21] MEDS ORDERED: MIDAZOLAM 2 MG/2 ML VIAL ONE (20:07)
--- NOTE | 2024-02-21 20:36 | P.OP ---
Date of Procedure: 02/21/24 Preoperative Diagnosis: 1. Incomplete at approximately 8 weeks gestation 2. Symptomatic anemia Postoperative Diagnosis: Same Procedure(s) Performed: Suction D&C Implants: None Anesthesia: CARLYA Surgeon: Veronica Lester Estimated Blood Loss (ml): 50 IV fluids (ml): 400 Urine output (ml): 0 Pathology: other (products of conception) Condition: stable Disposition: same day Indications for Procedure: Ms. Moreno is a 23 year old at approximately 8 weeks and 5 days by LMP presenting to the ER with heavy vaginal bleeding and symptomatic anemia. Pelvic US reveals no IUP but irregularly thickened endometrium consistent with products of conception. Serum HCG is 90,000. The risks, benefits, and alternatives to Suction D&C are reviewed with the patient including risk of bleeding, infection, uterine perforation, and damage to surrounding structures. The patient understands these risks and desires to proceed with surgery as discussed. All questions answered. Operative Findings: Large amount of products of conception removed from the uterus Description of Procedure: The patient was taken to the operating room where a general anesthetic was administered. She was then positioned in the dorsal lithotomy position and prepped and draped in the normal sterile fashion. Once the anesthetic was found to be adequate, a bimanual exam was performed under anesthetic. Next, a weighted speculum was placed in the vagina. The anterior lip of cervix was grasped with the tenaculum and due to the patient already being dilated approximately 1 cm, no cervical dilation was needed. An 8mm suction curette was connected to the suction and was placed in the cervix and a suction curettage was performed. Two passes were made with the suction curettage. Next, a sharp curettage was performed obtaining a small amount of tissue and this was followed by third suction curettage. After the procedure, the tenaculum was removed. The cervix was hemostatic. The weighted speculum was removed. After the procedure, a second bimanual exam was performed and the patient's uterus had significantly decreased in size.The patient was taken from the operating room in stable condition after she was cleaned. She will be discharged home today and will follow up in the office in 2 weeks.
[2024-02-21] MEDS: Rhogam IMMUNE GLOBULIN 1,500 UNIT/1 ML IM ONE (23:04)
[2024-02-21] MEDS: ACETAMINOPHEN TAB 325 MG TAB PO STA (23:36)
[2024-02-22] MEDS: IBUPROFEN 600 MG TAB PO STA (00:21)
[2024-02-22 00:32] VITALS: BP 129/66; PULSE 98; RESP 16; TEMP 98.9
== END 2024-02-22 01:15 | disposition home or self-care (01) ==
LOC: EC 13:52 → 4FBP 18:51
PROVIDERS: ADMIT Obstetrics & Gynecology; ATTEND Obstetrics & Gynecology
DX: O03.4 Incomplete spontaneous abortion without complication (principal); D50.0 Iron deficiency anemia secondary to blood loss (chronic); Z3A.08 8 weeks gestation of pregnancy; Z82.49 Family history of ischemic heart disease and other diseases of the circulatory system
CPT/HCPCS: 59812; 99285; 36415; 93005; 86900; 86901; 88305; 83880; 80053; 83605; 83735; 84100; 84484; 85025; 85610; 85730; 86850; 81001; 84702; 76801; G0378; J2250; J2405; J2001; J3010; J1885; J2704

== ENCOUNTER 2024-07-07 05:32 | Emergency (ER) | payer OTHER ==
[2024-07-07 05:44] VITALS: RESP 18
--- NOTE | 2024-07-07 06:12 | ED ---
ENT HPI - General Chief complaint: ENT Stated complaint: sore throat Time Seen by Provider: 07/07/24 06:11 Source: patient, RN notes reviewed Mode of arrival: ambulatory Limitations: no limitations - History of Present Illness Initial comments: 24-year-old female presented to the ER with a chief complaint of a sore throat. Patient reports yesterday morning she woke up and her throat was irritated. She has tried [id number] cough drops and tea without relief. She does state it is painful to swallow. She does report mild chills. She denies any difficulty breathing, wheezing, chest pain, shortness of breath, cough, congestion or runny nose. Denies fevers, abdominal pain, constipation/diarrhea, urinary complaints or peripheral edema. Patient has no significant past medical history. - Related Data Home Medications Medication Instructions Recorded Confirmed lisinopriL [Zestril] 10 mg PO DAILY PRN 02/21/24 02/21/24 Previous Rx's Medication Instructions Recorded methylPREDNISolone [Medrol Dose 0 mg PO DIRECTED #1 packet 07/07/24 Pack] Allergies Allergy/AdvReac Type Severity Reaction Status Date / Time No Known Allergies Allergy Verified 07/07/24 05:44 Review of Systems ROS Statement: Those systems with pertinent positive or pertinent negative responses have been documented in the HPI. ROS Other: All systems not noted in ROS Statement are negative. Past Medical History Past Medical History: Asthma Additional Past Medical History / Comment(s): Obstetric history: Patient had a term vaginal deliveries 7 lbs. 5 oz. baby girl in 2019. History of Any Multi-Drug Resistant Organisms: None Reported Past Surgical History: No Surgical Hx Reported Past Anesthesia/Blood Transfusion Reactions: No Reported Reaction Past Psychological History: No Psychological Hx Reported Smoking Status: Never smoker Past Alcohol Use History: Occasional Past Drug Use History: None Reported - Past Family History Mother Family Medical History: Hypertension Additional Family Medical History / Comment(s): anxiety General Exam Limitations: no limitations General appearance: alert, in no apparent distress ENT exam: Present: mucous membranes moist, TM's normal bilaterally, other (White exudate to bilateral tonsils.) Neck exam: Present: normal inspection. Absent: tenderness, meningismus, lymphadenopathy Respiratory exam: Present: normal lung sounds bilaterally. Absent: respiratory distress, wheezes, rales, rhonchi, stridor Cardiovascular Exam: Present: regular rate, normal rhythm, normal heart sounds. Absent: systolic murmur, diastolic murmur, rubs, gallop, clicks Neurological exam: Present: alert, oriented X3, CN II-XII intact Skin exam: Present: warm, dry, intact, normal color. Absent: rash Course Vital Signs 07/07/24 07/07/24 05:43 07:15 Temperature 97.6 F 97.8 F Pulse Rate 95 84 Respiratory 18 18 Rate Blood Pressure 131/74 122/71 O2 Sat by Pulse 99 100 Oximetry Medical Decision Making - Medical Decision Making Was pt. sent in by a medical professional or institution (, GERALDO, SOCIAL WELFARE ADMINISTRATOR, urgent care, hospital, or penitentiary...) When possible be specific @ -No Did you speak to anyone other than the patient for history (EMS, parent, family, police, friend...)? What history was obtained from this source @ -No Did you review nursing and triage notes (agree or disagree)? Why? @ -I reviewed and agree with nursing and triage notes Were old charts reviewed (outside hosp., previous admission, EMS record, old EKG, old radiological studies, urgent care reports/EKG's, penitentiary records)? Report findings @ -No old charts were reviewed Differential Diagnosis (chest pain, altered mental status, abdominal pain women, abdominal pain men, vaginal bleeding, weakness, fever, dyspnea, syncope, headache, dizziness, GI bleed, back pain, seizure, CVA, palpatations, mental health, musculoskeletal)? @ -COVID, RSV, influenza, viral sinusitis, pneumonia this list is not meant to be all-inclusive EKG interpreted by me (3pts min.). @ -None done X-rays interpreted by me (1pt min.). @ -None done CT interpreted by me (1pt min.). @ -None done U/S interpreted by me (1pt. min.). @ -None done What testing was considered but not performed or refused? (CT, X-rays, U/S, labs)? Why? @ -None What meds were considered but not given or refused? Why? @ -None Did you discuss the management of the patient with other professionals (professionals i.e. GERALDO Amaya, SOCIAL WELFARE ADMINISTRATOR, lab, RT, psych nurse, social welfare research worker, data virtualization consultant, teacher, complaint evaluation officer, casework supervisor)? Give summary @ -No Was smoking cessation discussed for >3mins.? @ -No Was critical care preformed (if so, how long)? @ -No Were there social determinants of health that impacted care today? How? (Homelessness, low income, unemployed, alcoholism, drug addiction, transportation, low edu. Level, literacy, decrease access to med. care, alf, rehab)? @ -No Was there de-escalation of care discussed even if they declined (Discuss DNR or withdrawal of care, Hospice)? DNR status @ -No What co-morbidities impacted this encounter? (DM, HTN, Smoking, COPD, CAD, Cancer, CVA, ARF, Chemo, Hep., AIDS, mental health diagnosis, sleep apnea, morbid obesity)? @ -None Was patient admitted / discharged? Hospital course, mention meds given and route, prescriptions, significant lab abnormalities, going to OR and other pertinent info. @ -Discharged. 24-year-old female presented the ER for evaluation of sore throat. History and physical exam completed. Vital stable. Patient had no signs of acute distress. Exam remarkable for bilateral white tonsillar exudates. Viral swabs and strep negative. Patient received p.o. ibuprofen for symptom control in the ER. Upon reevaluation, patient resting comfortably in exam room no signs of acute distress. Results discussed with patient, all questions answered. Medrol Dosepak prescribed.Strict return parameters discussed. Patient discharged in stable condition with follow-up to PCP. Patient verbally expressed understanding and agreement with care plan. Case discussed with ED attending, Dr. Elena. Undiagnosed new problem with uncertain prognosis? @ -No Drug Therapy requiring intensive monitoring for toxicity (Heparin, Nitro, Insulin, Cardizem)? @ -No Were any procedures done? @ -No Diagnosis/symptom? @ -Pharyngitis Acute, or Chronic, or Acute on Chronic? @ -Acute Uncomplicated (without systemic symptoms) or Complicated (systemic symptoms)? @ -Uncomplicated Side effects of treatment? @ -No Exacerbation, Progression, or Severe Exacerbation? @ -No Poses a threat to life or bodily function? How? (Chest pain, [place], [place], pneumonia, PE, COPD, DKA, ARF, appy, cholecystitis, CVA, Diverticulitis, Homicidal, Suicidal, threat to staff... and all critical care pts) @ -No - Lab Data Lab Results 07/07/24 07/07/24 Range/Units 05:46 05:47 Influenza Type A (PCR) Not Detected (Not Detectd) Influenza Type B (PCR) Not Detected (Not Detectd) RSV (PCR) Not Detected (Not Detectd) SARS-CoV-2 (PCR) Not Detected (Not Detectd) Group A Strep (PCR) NOT DETECTED (Not Detectd) Disposition Clinical Impression: Pharyngitis Disposition: HOME SELF-CARE Condition: Stable Additional Instructions: Follow-up with PCP. Return to the ER for any new or worsening symptoms. Prescriptions: methylPREDNISolone [Medrol Dose Pack] 0 mg PO DIRECTED #1 packet Is patient prescribed a controlled substance at d/c from ED?: No Referrals: Richard Pack DO [Primary Care Provider] - 1-2 days Time of Disposition: 07:07
[2024-07-07] MEDS: IBUPROFEN 800 MG TAB PO STA (06:18)
[2024-07-07 07:16] VITALS: BP 122/71; PULSE 84; TEMP 97.8
== END 2024-07-07 08:31 | disposition home or self-care (01) ==
LOC: EC 05:32
DX: J02.9 Acute pharyngitis, unspecified (principal)
CPT/HCPCS: 87636; 87651; 99283

== ENCOUNTER 2024-08-20 17:15 | Emergency (ER) | payer OTHER ==
[2024-08-20 17:27] VITALS: RESP 18
--- NOTE | 2024-08-20 17:44 | ED ---
Chest Pain HPI - General Source: patient, RN notes reviewed Mode of arrival: ambulatory Limitations: no limitations <Marci Mabry - Last Filed: 08/20/24 17:43> <Quintin Lovett - Last Filed: 08/21/24 22:51> - General Chief Complaint: Chest Pain Stated Complaint: Chest pain,Nausea Time Seen by Provider: 08/20/24 17:43 - History of Present Illness Initial Comments: Quick [id number] female with history of hypertension and asthma presenting for chest pain x 5.5 hours. States around noon today she began to experience a tightness in the chest that radiates to the lower back. Also endorses nausea and vomiting. States she has had this many times before which has been attributed to her hypertension. States she tried to take her hypertension medication today with no relief. Denies cough, fever, chills. (Marci Mabry) 24-year-old female presenting with chief complaint of chest pain nausea and vomiting. Patient states that symptoms started around noon today. She states that it is a sharp pain in the center of the chest. She denies difficulty breathing. Denies cough congestion or sore throat. She takes lisinopril as needed, she took one 5 mg lisinopril and states that it did not improve her symptoms. She is also having nausea and vomiting today. No abdominal pain. S he is having some spotting. She is unsure when her last menstrual period was. No palpitations. No urinary symptoms. (Quintin Lovett) - Related Data Home Medications Medication Instructions Recorded Confirmed lisinopriL [Zestril] 10 mg PO DAILY PRN 02/21/24 02/21/24 Previous Rx's Medication Instructions Recorded methylPREDNISolone [Medrol Dose 0 mg PO DIRECTED #1 packet 07/07/24 Pack] Vit No.179/Iron/Folic 1 each PO DAILY #30 tab 08/21/24 [ Tablet] Allergies Allergy/AdvReac Type Severity Reaction Status Date / Time No Known Allergies Allergy Verified 08/20/24 17:24 Review of Systems ROS Other: All systems not noted in ROS Statement are negative. <Marci Mabry - Last Filed: 08/20/24 17:43> ROS Other: All systems not noted in ROS Statement are negative. <Quintin Lovett - Last Filed: 08/21/24 22:51> ROS Statement: Those systems with pertinent positive or pertinent negative responses have been documented in the HPI. Past Medical History Past Medical History: Asthma, Hypertension Additional Past Medical History / Comment(s): Obstetric history: Patient had a term vaginal deliveries 7 lbs. 5 oz. baby girl in 2019. History of Any Multi-Drug Resistant Organisms: None Reported Past Surgical History: No Surgical Hx Reported Past Anesthesia/Blood Transfusion Reactions: No Reported Reaction Past Psychological History: No Psychological Hx Reported Smoking Status: Never smoker Past Alcohol Use History: Occasional Past Drug Use History: None Reported - Past Family History Mother Family Medical History: Hypertension Additional Family Medical History / Comment(s): anxiety <Marci Mabry - Last Filed: 08/20/24 17:43> General Exam Limitations: no limitations <Marci Mabry - Last Filed: 08/20/24 17:43> Limitations: no limitations General appearance: alert, in no apparent distress Head exam: Present: atraumatic, normocephalic, normal inspection Eye exam: Present: normal appearance, EOMI Neck exam: Present: normal inspection. Absent: meningismus Respiratory exam: Present: normal lung sounds bilaterally, chest wall tenderness. Absent: respiratory distress, wheezes, rales, rhonchi, stridor Cardiovascular Exam: Present: regular rate, normal rhythm, normal heart sounds. Absent: systolic murmur, diastolic murmur, rubs, gallop, clicks GI/Abdominal exam: Present: soft. Absent: distended, tenderness, guarding, rebound, rigid Neurological exam: Present: alert, oriented X3 Psychiatric exam: Present: normal affect, normal mood Skin exam: Present: warm, dry <Quintin Lovett - Last Filed: 08/21/24 22:51> - General Exam Comments Initial Comments: Visual Physical Exam Vital signs reviewed General: Well-appearing, nontoxic, no acute distress. Head: Normocephalic, atraumatic Eyes: PERRLA, EOMI ENT: Airway patent Chest: Nonlabored breathing Skin: No visual rash, normal skin tone Neuro: Alert and oriented 3 Musculoskeletal: No gross abnormalities (Marci Mabry) Course Vital Signs 08/20/24 08/20/24 08/20/24 17:25 21:00 23:45 Temperature 98.2 F Pulse Rate 94 76 78 Respiratory 18 18 18 Rate Blood Pressure 115/78 146/101 128/75 O2 Sat by Pulse 100 97 97 Oximetry 08/21/24 03:09 Temperature 98.4 F Pulse Rate 74 Respiratory 18 Rate Blood Pressure 126/79 O2 Sat by Pulse 97 Oximetry Chest Pain MDM <RaghavendraMarci - Last Filed: 08/20/24 17:43> <RachellQuintin - Last Filed: 08/21/24 22:51> - [facility] I completed the quick note portion of this chart signed Marci Mabry PA-C (Marci Mabry) EKG shows sinus rhythm ventricular rate 88. [place] interval 128. QRS 79. QT 369. QTc 415. No ST deviation. Was pt. sent in by a medical professional or institution (, PA, SENIOR MANAGER QUALITY ASSURANCE, urgent care, hospital, or longterm...) When possible be specific @ -No Did you speak to anyone other than the patient for history (EMS, parent, family, police, friend...)? What history was obtained from this source @ -No Did you review nursing and triage notes (agree or disagree)? Why? @ -I reviewed and agree with nursing and triage notes Were old charts reviewed (outside hosp., previous admission, EMS record, old EKG, old radiological studies, urgent care reports/EKG's, longterm records)? Report findings @ -No old charts were reviewed Differential Diagnosis (chest pain, altered mental status, abdominal pain women, abdominal pain men, vaginal bleeding, weakness, fever, dyspnea, syncope, headache, dizziness, GI bleed, back pain, seizure, CVA, palpatations, mental health, musculoskeletal)? @ -[facility] Differential Chest Pain: Stable Angina, Unstable Angina, STEMI, NSTEMI Aortic Dissection, Pneumothorax, Musculoskeletal, Esophageal Spasm GERD, Cholecystitis, Pancreatitis, Zoster This is not meant to be an all-inclusive list. EKG interpreted by me (3pts min.). @ -EKG shows sinus rhythm ventricular rate 88. AZ interval 128. QRS 79. QT 369. QTc 415. X-rays interpreted by me (1pt min.). @ -Chest x-ray shows no acute process CT interpreted by me (1pt min.). @ -None done U/S interpreted by me (1pt. min.). @ -Ultrasound shows no visible intrauterine or ectopic . In the setting of positive test findings suggest either spontaneous or of unknown location. Correlate with serial quantitative hCG and follow-up sonography. Thickened endometrium measuring 2 cm. This is abnormally thickened but could be related to early change. What testing was considered but not performed or refused? (CT, X-rays, U/S, labs)? Why? @ -None What meds were considered but not given or refused? Why? @ -None Did you discuss the management of the patient with other professionals (professionals i.e. Dr., PA, SENIOR MANAGER QUALITY ASSURANCE, lab, RT, psych nurse, social contact worker, analytical statistician, teacher, textile technical officer, spring encaser)? Give summary @ -No Was smoking cessation discussed for >3mins.? @ -No Was critical care preformed (if so, how long)? @ -No Were there social determinants of health that impacted care today? How? (Homelessness, low income, unemployed, alcoholism, drug addiction, transportation, low edu. Level, literacy, decrease access to med. care, custodial, rehab)? @ -No Was there de-escalation of care discussed even if they declined (Discuss DNR or withdrawal of care, Hospice)? DNR status @ -No What co-morbidities impacted this encounter? (DM, HTN, Smoking, COPD, CAD, Cancer, CVA, ARF, Chemo, Hep., AIDS, mental health diagnosis, sleep apnea, morbid obesity)? @ -None Was patient admitted / discharged? Hospital course, mention meds given and route, prescriptions, significant lab abnormalities, going to OR and other pertinent info. @ -24-year-old female presenting with chief complaint of chest pain. She also complains of nausea and vomiting. Workup is initiated by triage and patient is later placed in a room and evaluated by myself. Heart and lungs are clear to auscultation, there is reproducible pain to the chest wall. No lower extremity swelling. Hemoglobin 8.9, consistent with the patient's baseline. No leukocytosis. Negative troponin. Negative for influenza, RSV, COVID. Chest x- ray shows no acute process. EKG shows sinus rhythm. On reassessment patient reports improvement in her pain and nausea, she is tolerating oral intake. Urine hCG is positive. Patient was unaware she is , states that she was having what she thought were normal periods, she does not know the date of her LMP. States that she is having some spotting, she is having no pelvic pain. hCG quantitative is 623.3. ultrasound does not identify any intrauterine or ectopic . The differential includes early , spontaneous , or ectopic . Rh+ from patient's records, RhoGAM not indicated. Patient is educated on today's findings. She is provided with an order for repeat beta-hCG in 48 hours. She will follow-up with her LOCKSTITCH HEMMER Dr. Oglesby. Follow-up with PCP. Report back to ER with any new or worsening symptoms. Discussed return parameters and answered all questions. Patient conveyed verbal understanding and agreed to the plan. I discussed this case in detail with my attending Dr. Araya. Undiagnosed new problem with uncertain prognosis? @ -No Drug Therapy requiring intensive monitoring for toxicity (Heparin, Nitro, Insulin, Cardizem)? @ -No Were any procedures done? @ -No Diagnosis/symptom? @ -Chest wall pain, threatened Acute, or Chronic, or Acute on Chronic? @ -Acute Uncomplicated (without systemic symptoms) or Complicated (systemic symptoms)? @ -Uncomplicated Side effects of treatment? @ -No Exacerbation, Progression, or Severe Exacerbation? @ -No Poses a threat to life or bodily function? How? (Chest pain, [place], [place], pneumonia, PE, COPD, DKA, ARF, appy, cholecystitis, CVA, Diverticulitis, Homicidal, Suicidal, threat to staff... and all critical care pts) @ -Low likelihood (Quintin Lovett) Disposition <Marci Mabry - Last Filed: 08/20/24 17:43> Is patient prescribed a controlled substance at d/c from ED?: No Time of Disposition: 02:59 <Quintin Lovett - Last Filed: 08/21/24 22:51> Clinical Impression: Threatened , Chest wall pain Disposition: HOME SELF-CARE Condition: Good Instructions (If sedation given, give patient instructions): Chest Pain (ED), Threatened Miscarriage (ED) Additional Instructions: Follow-up with PCP and LOCKSTITCH HEMMER. Report back to ER with any new or worsening symptoms. Take Tylenol as needed for pain. You will receive an order for repeat beta-hCG in 48 hours, you can bring your order to the [facility] lab to have your lab work performed. Take a vitamin. Prescriptions: Vit No.179/Iron/Folic [ Tablet] 1 each PO DAILY #30 tab Referrals: Richard Pack DO [Primary Care Provider] - 1-2 days Veronica Lester MD [STAFF PHYSICIAN] - 1-2 days
[2024-08-20 18:10] LABS: Anisocytosis Slight; Basophils % (A) 0 %; Eosinophils # (A) 0.1 k/uL (0-0.7); Eosinophils % (A) 3 %; HCT 30.2 % (34.0-46.0); HGB 8.9 gm/dL (11.4-16.0); Hypochromasia Marked; Lymphocytes % (A) 36 %; MCHC 29.6 g/dL (31.0-37.0); MCV 67.5 fL (80.0-100.0); Microcytosis Marked; Monocytes # (A) 0.3 k/uL (0-1.0); Monocytes % (A) 5 %; Neutrophils % (A) 54 %; Platelet Count 368 k/uL (150-450); RBC 4.47 m/uL (3.80-5.40); WBC 5.7 k/uL (3.8-10.6)
[2024-08-20 18:18] LABS: INR 0.9 (<1.2); Prothrombin Time 10.1 sec (10.0-12.5)
[2024-08-20 18:44] LABS: ALT 13 U/L (4-34); AST 24 U/L (14-36); African American GFR (CKD) >90 (>60 ml/min/1.73 sqM); Albumin 4.7 g/dL (3.5-5.0); Alkaline Phosphatase 73 U/L (38-126); Anion Gap 8 mmol/L; Blood Urea Nitrogen 11 mg/dL (7-17); Calcium 9.7 mg/dL (8.4-10.2); Carbon Dioxide 25 mmol/L (22-30); Chloride 106 mmol/L (98-107); Glucose 85 mg/dL (74-99); Magnesium 2.1 mg/dL (1.6-2.3); Non-African American GFR(CKD) >90 (>60 ml/min/1.73 sqM); Potassium 3.9 mmol/L (3.5-5.1); Sodium 139 mmol/L (137-145); Total Bilirubin 0.9 mg/dL (0.2-1.3); Total Protein 7.9 g/dL (6.3-8.2)
--- NOTE | 2024-08-20 18:46 | XR ---
EXAMINATION TYPE: XR chest 2V DATE OF EXAM: 08/20/2024 6:10 PM COMPARISON: 01/18/2024 CLINICAL INDICATION: Female, 24 years old with history of Chest Pain, TECHNIQUE: XR chest 2V view(s) obtained. FINDINGS: The heart size is normal. The pulmonary vasculature is normal. The lungs are clear. IMPRESSION: 1. No acute pulmonary process. [facility], , 08/20/2024 6:43 PM
[2024-08-20] MEDS: SODIUM CHLORIDE 0.9% 1,000 ML IV ONE (20:40)
[2024-08-20] MEDS: ONDANSETRON 4 MG/2 ML VIAL IVP STA (20:42)
[2024-08-20] MEDS: KETOROLAC 15 MG/ML 1 ML VIAL IVP STA (20:44)
--- NOTE | 2024-08-21 02:54 | US ---
EXAM: US First Trimester , Transabdominal CLINICAL HISTORY: ITS.REASON US Reason: spotting TECHNIQUE: Real-time transabdominal obstetrical ultrasound of the maternal pelvis and a first trimester with image documentation. COMPARISON: 02/21/24 FINDINGS: Gestation: No visible intrauterine . Placenta/amniotic fluid: Cannot be adequately evaluated due to the early gestational age. Uterus/cervix: Uterus measures 9.7 x 6.0 x 7.1 cm. Thickened endometrium measuring 2 cm. No myometrial mass. Ovaries: Left ovary measures 30 x 25 x 18 mm. Right ovary measures 23 x 21 x 8 17 mm. Blood flow present in both ovaries. No torsion. No mass. Free fluid: No free fluid. IMPRESSION: 1. No visible intra-uterine or ectopic . In the setting of positive test, findings suggest either spontaneous or of unknown location. Correlate with serial quantitative hCG and follow-up sonography. 2. Thickened endometrium measuring 2 cm. This is abnormally thickened, but could be related to early change. Attention on follow-up imaging.
[2024-08-21 03:10] VITALS: BP 126/79; PULSE 74; TEMP 98.4
== END 2024-08-21 03:10 | disposition home or self-care (01) ==
LOC: EC 17:15
DX: O20.0 Threatened abortion (principal); R07.89 Other chest pain; Z3A.00 Weeks of gestation of pregnancy not specified
CPT/HCPCS: 36415; 93005; 80053; 83735; 84484; 85025; 85610; 85730; 81025; 84702; 87636; 71046; 76801; 99285; 96374; 96375; 96361; J2405; J1885

== ENCOUNTER 2024-08-26 01:51 | Emergency (ER) | payer OTHER ==
--- NOTE | 2024-08-26 02:20 | ED ---
Female Urogenital HPI - General Source: patient, RN notes reviewed, old records reviewed Mode of arrival: ambulatory Limitations: no limitations - History of Present Illness MD Complaint: vaginal bleeding, pelvic pain -: days(s) Location: suprapubic Severity: moderate Severity scale (1-10): 6 Quality: cramping, sharp Consistency: constant Improves with: none Worsens with: none Last Menstrual Period: 06/30/24 Patient : No Associated Symptoms: vaginal bleeding, abdominal pain <Jareth Erickson - Last Filed: 08/26/24 02:18> <Jareth Vilchis - Last Filed: 08/26/24 08:00> - General Chief complaint: Abdominal Pain Stated complaint: lightheaded Time Seen by Provider: 08/26/24 01:57 - History of Present Illness Initial comments: This is a 24-year-old female to the ER for evaluation today. Patient [place] for evaluation of abdominal pain cramping on regular vaginal bleeding with rec ent elective 3 weeks ago. Patient did take a pill of methotrexate twice for positive IUP (Jareth Erickson) - Related Data Home Medications Medication Instructions Recorded Confirmed lisinopriL [Zestril] 10 mg PO DAILY PRN 02/21/24 02/21/24 Previous Rx's Medication Instructions Recorded methylPREDNISolone [Medrol Dose 0 mg PO DIRECTED #1 packet 07/07/24 Pack] Vit No.179/Iron/Folic 1 each PO DAILY #30 tab 08/21/24 [ Tablet] Allergies Allergy/AdvReac Type Severity Reaction Status Date / Time No Known Allergies Allergy Verified 08/26/24 01:53 Review of Systems ROS Other: All systems not noted in ROS Statement are negative. <Jareth Erickson - Last Filed: 08/26/24 02:18> ROS Other: All systems not noted in ROS Statement are negative. <Jareth Vilchis - Last Filed: 08/26/24 08:00> ROS Statement: Those systems with pertinent positive or pertinent negative responses have been documented in the HPI. Past Medical History Past Medical History: Asthma, Hypertension Additional Past Medical History / Comment(s): Obstetric history: Patient had a term vaginal deliveries 7 lbs. 5 oz. baby girl in 2019. History of Any Multi-Drug Resistant Organisms: None Reported Past Surgical History: No Surgical Hx Reported Past Anesthesia/Blood Transfusion Reactions: No Reported Reaction Past Psychological History: No Psychological Hx Reported Smoking Status: Never smoker Past Alcohol Use History: Occasional Past Drug Use History: None Reported - Past Family History Mother Family Medical History: Hypertension Additional Family Medical History / Comment(s): anxiety <Jareth Erickson - Last Filed: 08/26/24 02:18> General Exam Limitations: no limitations General appearance: alert, in no apparent distress Head exam: Present: atraumatic, normocephalic, normal inspection Eye exam: Present: normal appearance, PERRL, EOMI. Absent: scleral icterus, conjunctival injection, periorbital swelling ENT exam: Present: normal exam, mucous membranes moist Neck exam: Present: normal inspection. Absent: tenderness, meningismus, lymphadenopathy Respiratory exam: Present: normal lung sounds bilaterally. Absent: respiratory distress, wheezes, rales, rhonchi, stridor Cardiovascular Exam: Present: regular rate, normal rhythm, normal heart sounds. Absent: systolic murmur, diastolic murmur, rubs, gallop, clicks GI/Abdominal exam: Present: soft, normal bowel sounds. Absent: distended, tenderness, guarding, rebound, rigid Extremities exam: Present: normal inspection, full ROM, normal capillary refill. Absent: tenderness, pedal edema, joint swelling, calf tenderness Back exam: Present: normal inspection Neurological exam: Present: alert, oriented X3, CN II-XII intact Psychiatric exam: Present: normal affect, normal mood Skin exam: Present: warm, dry, intact, normal color. Absent: rash <Jareth Erickson - Last Filed: 08/26/24 02:18> Course <Jareth Erickson - Last Filed: 08/26/24 02:18> Vital Signs 08/26/24 08/26/24 01:53 06:27 Temperature 97.8 F Pulse Rate 86 96 Respiratory 16 16 Rate Blood Pressure 123/65 125/79 O2 Sat by Pulse 100 100 Oximetry - Reevaluation(s) Reevaluation #1: 08/26/24 02:19 Medical records reviewed (Jareth Erickson) Reevaluation #2: 08/26/24 02:19 Patient symptoms unchanged (Roskopp,Jareth B) Reevaluation #4: Was pt. sent in by a medical professional or institution (, [facility], [employer], urgent care, hospital, or [facility]...) When possible be specific @ -no Did you speak to anyone other than the patient for history (EMS, parent, family, police, friend...)? What history was obtained from this source @ -no Did you review nursing and triage notes (agree or disagree)? Why? @ -agree Are old charts reviewed (outside hosp., previous admission, EMS record, old EKG, old radiological studies, urgent care reports/EKG's, [facility] records)? Report findings @ -yes Differential Diagnosis (chest pain, altered mental status, abdominal pain women, abdominal pain men, vaginal bleeding, weakness, fever, dyspnea, syncope, headache, dizziness, GI bleed, back pain, seizure, CVA, palpatations, mental health, musculoskeletal)? @ -prior EKG interpreted by me (3pts min.). @ -yes X-rays interpreted by me (1pt min.). @ -yes negative for acute disease CT interpreted by me (1pt min.). @ -no U/S interpreted by me (1pt. min.). @ -no What testing was considered but not performed or refused? (CT, X-rays, U/S, labs)? Why? @ -none What meds were considered but not given or refused? Why? @ -none Did you discuss the management of the patient with other professionals (professionals i.e. , [facility], [employer]TAIN, lab, RT, psych nurse, social services technician, buncher machine, teacher, airline pilot/first officer, therapeutic case manager)? Give summary @ -no Was smoking cessation discussed for >3mins.? @ -no Was critical care preformed (if so, how long)? @ -no Were there social determinants of health that impacted care today? How? (Homelessness, low income, unemployed, alcoholism, drug addiction, transportation, low edu. Level, literacy, decrease access to med. care, usp, rehab)? @ -none Was there de-escalation of care discussed even if they declined (Discuss DNR or withdrawal of care, Hospice)? DNR status @ -no What co-morbidities impacted this encounter? (DM, HTN, Smoking, COPD, CAD, Cancer, CVA, ARF, Chemo, Hep., AIDS, mental health diagnosis, sleep apnea, morbid obesity)? @ -none Was patient admitted / discharged? Hospital course, mention meds given and route, prescriptions, significant lab abnormalities, going to OR and other pertinent info. @ - Undiagnosed new problem with uncertain prognosis? @ -no Drug Therapy requiring intensive monitoring for toxicity (Heparin, Nitro, Insulin, Cardizem)? @ -no Were any procedures done? @ -no Diagnosis/symptom? @ - Acute, or Chronic, or Acute on Chronic? @ -Acute Uncomplicated (without systemic symptoms) or Complicated (systemic symptoms)? @ -Complicated Side effects of treatment? @ -no Exacerbation, Progression, or Severe Exacerbation? @ -exacerbation Poses a threat to life or bodily function? How? (Chest pain, USA, MA, pneumonia, PE, COPD, DKA, ARF, appy, cholecystitis, CVA, Diverticulitis, Homicidal, Suicidal, threat to staff... and all critical care pts) @ -yes (Jareth Erickson) Reevaluation #5: Differential Abdominal Pain Women: Appendicitis, Cholecystitis, diverticulosis, ischemic bowel, pancreatitis, hepatitis, UTI, gastroenteritis, AAA, incarcerated hernia, bowel obstruction, constipation, inflammatory bowel, hepatitis, peptic ulcer disease, splenic infarction, perforated viscus, vulvitis, ovarian torsion, PID, kidney stone, placenta abruption, this is not meant to be an all-inclusive list (Jareth Erickson) Medical Decision Making - Lab Data Result diagrams: 08/26/24 02:48 08/26/24 02:48 <Jareth Vilchis - Last Filed: 08/26/24 08:00> - Medical Decision Making Was patient admitted / discharged? Hospital course, mention meds given and route, prescriptions, significant lab abnormalities, going to OR and other pertinent info. @ -Patient was signed out to me by Dr. Erickson at 7 AM. Patient's ultrasound showed no intrauterine and no signs of retained products. Patient was reevaluated by myself and she was in no pain and no longer bleeding at this time but she states has been intermittent since she is taking the methotrexate on Jul. I did speak with Dr. Oglesby she wanted the patient to follow-up with her and get a repeat beta-hCG patient will get a prescription for beta-hCG. Hemoglobin is 8.9 but stable over the last 6 months Undiagnosed new problem with uncertain prognosis? @ -No Drug Therapy requiring intensive monitoring for toxicity (Heparin, Nitro, Insulin, Cardizem)? @ -No Were any procedures done? @ -No Diagnosis/symptom? @ -Postabortion hemorrhage Acute, or Chronic, or Acute on Chronic? @ -Acute Uncomplicated (without systemic symptoms) or Complicated (systemic symptoms)? @ -Complicated Side effects of treatment? @ -No Exacerbation, Progression, or Severe Exacerbation? @ -No Poses a threat to life or bodily function? How? (Chest pain, USA, MA, pneumonia, PE, COPD, DKA, ARF, appy, cholecystitis, CVA, Diverticulitis, Homicidal, Suicidal, threat to staff... and all critical care pts) @ -No (Jareth Vilchis) - Lab Data Lab Results 08/26/24 08/26/24 08/26/24 Range/Units 02:48 02:48 02:48 WBC 7.1 (3.8-10.6) k/uL RBC 4.17 (3.80-5.40) m/uL Hgb 8.9 L (11.4-16.0) gm/dL Hct 28.5 L (34.0-46.0) % MCV 68.4 L (80.0-100.0) fL MCH 21.3 L (25.0-35.0) pg MCHC 31.2 (31.0-37.0) g/dL RDW 17.4 H (11.5-15.5) % Plt Count 380 (150-450) k/uL MPV 7.9 Neutrophils % 64 % Lymphocytes % 26 % Monocytes % 5 % Eosinophils % 3 % Basophils % 0 % Neutrophils # 4.6 (1.3-7.7) k/uL Lymphocytes # 1.8 (1.0-4.8) k/uL Monocytes # 0.3 (0-1.0) k/uL Eosinophils # 0.2 (0-0.7) k/uL Basophils # 0.0 (0-0.2) k/uL Hypochromasia Marked Anisocytosis Slight Microcytosis Marked PT (10.0-12.5) sec INR (<1.2) APTT (22.0-30.0) sec Sodium 138 (137-145) mmol/L Potassium 4.0 (3.5-5.1) mmol/L Chloride 102 (98-107) mmol/L Carbon Dioxide 27 (22-30) mmol/L Anion Gap 9 mmol/L BUN 12 (7-17) mg/dL Creatinine 0.76 (0.52-1.04) mg/dL Est GFR (CKD-EPI)AfAm >90 (>60 ml/min/1.73 sqM) Est GFR (CKD-EPI)NonAf >90 (>60 ml/min/1.73 sqM) Glucose 72 L (74-99) mg/dL Calcium 9.9 (8.4-10.2) mg/dL Total Bilirubin 0.3 (0.2-1.3) mg/dL AST 25 (14-36) U/L ALT 10 (4-34) U/L Alkaline Phosphatase 66 (38-126) U/L Total Protein 7.8 (6.3-8.2) g/dL Albumin 4.7 (3.5-5.0) g/dL HCG, Quant 338.4 mIU/mL Urine Color Urine Appearance (Clear) Urine pH (5.0-8.0) Ur Specific [place] (1.001-1.035) Urine Protein (Negative) Urine Glucose (UA) (Negative) Urine Ketones (Negative) Urine Blood (Negative) Urine Nitrite (Negative) Urine Bilirubin (Negative) Urine Urobilinogen (<2.0) mg/dL Ur Leukocyte Esterase (Negative) Urine HCG, Qual Detected (Not Detectd) Blood Type Blood Type Recheck Bld Type Recheck Status 08/26/24 08/26/24 08/26/24 Range/Units 02:48 02:48 02:48 WBC (3.8-10.6) k/uL RBC (3.80-5.40) m/uL Hgb (11.4-16.0) gm/dL Hct (34.0-46.0) % MCV (80.0-100.0) fL MCH (25.0-35.0) pg MCHC (31.0-37.0) g/dL RDW (11.5-15.5) % Plt Count (150-450) k/uL MPV Neutrophils % % Lymphocytes % % Monocytes % % Eosinophils % % Basophils % % Neutrophils # (1.3-7.7) k/uL Lymphocytes # (1.0-4.8) k/uL Monocytes # (0-1.0) k/uL Eosinophils # (0-0.7) k/uL Basophils # (0-0.2) k/uL Hypochromasia Anisocytosis Microcytosis PT 10.3 (10.0-12.5) sec INR 0.9 (<1.2) APTT 21.3 L (22.0-30.0) sec Sodium (137-145) mmol/L Potassium (3.5-5.1) mmol/L Chloride (98-107) mmol/L Carbon Dioxide (22-30) mmol/L Anion Gap mmol/L BUN (7-17) mg/dL Creatinine (0.52-1.04) mg/dL Est GFR (CKD-EPI)AfAm (>60 ml/min/1.73 sqM) Est GFR (CKD-EPI)NonAf (>60 ml/min/1.73 sqM) Glucose (74-99) mg/dL Calcium (8.4-10.2) mg/dL Total Bilirubin (0.2-1.3) mg/dL AST (14-36) U/L ALT (4-34) U/L Alkaline Phosphatase (38-126) U/L Total Protein (6.3-8.2) g/dL Albumin (3.5-5.0) g/dL HCG, Quant mIU/mL Urine Color Colorless Urine Appearance Clear (Clear) Urine pH 6.0 (5.0-8.0) Ur Specific [place] 1.015 (1.001-1.035) Urine Protein Negative (Negative) Urine Glucose (UA) Negative (Negative) Urine Ketones Negative (Negative) Urine Blood Negative (Negative) Urine Nitrite Negative (Negative) Urine Bilirubin Negative (Negative) Urine Urobilinogen <2.0 (<2.0) mg/dL Ur Leukocyte Esterase Negative (Negative) Urine HCG, Qual (Not Detectd) Blood Type B Positive Blood Type Recheck B Pos Bld Type Recheck Status No Disposition <Jareth Erickson - Last Filed: 08/26/24 02:18> Is patient prescribed a controlled substance at d/c from ED?: No Time of Disposition: 07:59 <Jareth Vilchis - Last Filed: 08/26/24 08:00> Clinical Impression: Postabortion hemorrhage Disposition: HOME SELF-CARE Condition: Good Instructions (If sedation given, give patient instructions): Abnormal (Dysfunctional) Uterine Bleeding (ED) Additional Instructions: Patient should return to the emergency department if the bleeding becomes heavy or she has scant abdominal pain. Patient should also return if there is any lightheadedness dizziness passing out or shortness of breath. Referrals: Carli Oglesby DO [Doctor of Osteopathic Medicine] - 1-2 days
[2024-08-26] MEDS: ONDANSETRON 4 MG/2 ML VIAL IVP STA (02:38)
[2024-08-26] MEDS: SODIUM CHLORIDE 0.9% 1,000 ML IV ONE (02:38)
[2024-08-26] MEDS: MORPHINE SULFATE 4 MG/ML SYRINGE IV STA (02:39)
[2024-08-26] MEDS: ACETAMINOPHEN TAB 500 MG TAB PO STA (02:41)
[2024-08-26 03:05] LABS: Anisocytosis Slight; Basophils % (A) 0 %; Eosinophils # (A) 0.2 k/uL (0-0.7); Eosinophils % (A) 3 %; HCT 28.5 % (34.0-46.0); HGB 8.9 gm/dL (11.4-16.0); Hypochromasia Marked; Lymphocytes # (A) 1.8 k/uL (1.0-4.8); Lymphocytes % (A) 26 %; MCH 21.3 pg (25.0-35.0); MCHC 31.2 g/dL (31.0-37.0); MCV 68.4 fL (80.0-100.0); Mean Platelet Volume 7.9; Microcytosis Marked; Monocytes # (A) 0.3 k/uL (0-1.0); Monocytes % (A) 5 %; Neutrophils # (A) 4.6 k/uL (1.3-7.7); Neutrophils % (A) 64 %; Platelet Count 380 k/uL (150-450); RBC 4.17 m/uL (3.80-5.40); RDW 17.4 % (11.5-15.5); WBC 7.1 k/uL (3.8-10.6)
[2024-08-26 03:07] LABS: Appearance,Urine Clear (Clear); Bilirubin,Urine Negative (Negative); Blood,Urine Negative (Negative); Color,Urine Colorless; Glucose,Urine (UA) Negative (Negative); Ketones,Urine Negative (Negative); Leukocyte Esterase,Urine Negative (Negative); Nitrite,Urine Negative (Negative); Protein,Urine Negative (Negative); Specific Gravity,Urine 1.015 (1.001-1.035); Urobilinogen,Urine <2.0 mg/dL (<2.0)
[2024-08-26 03:21] LABS: INR 0.9 (<1.2); Prothrombin Time 10.3 sec (10.0-12.5)
[2024-08-26 03:36] LABS: Partial Thromboplastin Time 21.3 sec (22.0-30.0)
[2024-08-26 03:55] LABS: ALT 10 U/L (4-34); AST 25 U/L (14-36); African American GFR (CKD) >90 (>60 ml/min/1.73 sqM); Albumin 4.7 g/dL (3.5-5.0); Alkaline Phosphatase 66 U/L (38-126); Anion Gap 9 mmol/L; Blood Urea Nitrogen 12 mg/dL (7-17); Calcium 9.9 mg/dL (8.4-10.2); Carbon Dioxide 27 mmol/L (22-30); Chloride 102 mmol/L (98-107); Glucose 72 mg/dL (74-99); Non-African American GFR(CKD) >90 (>60 ml/min/1.73 sqM); Sodium 138 mmol/L (137-145); Total Bilirubin 0.3 mg/dL (0.2-1.3); Total Protein 7.8 g/dL (6.3-8.2)
[2024-08-26 04:10] LABS: HCG,Quantitative Serum 338.4 mIU/mL
--- NOTE | 2024-08-26 07:34 | US ---
EXAMINATION TYPE: Transabdominal DATE OF EXAM: 08/26/2024 7:17 AM COMPARISON: NONE CLINICAL INDICATION: Female, 24 years old with history of pain; recent spontaneous ab, cramping and s potting TECHNIQUE: OBTA with grayscale and color Doppler imaging including first trimester . FINDINGS: EXAM MEASUREMENTS: GESTATIONAL AGE / DATING Physician Established: Not yet established Dates by LMP: (7 weeks/5 days) EDC: 03/13/2025 Dates by First Scan: no IUP seen on previous Dates by Current Scan for: No IUP seen at this time MATERNAL ANATOMY Uterus: 11.1 x 5.6 x 4.1cm Right Ovary: 4.3 x 2.9 x 2.1cm - follicles, largest = 1.6 x 1.4 x 1.3cm Left Ovary: 2.7 x 2.3 x 2.2cm - complex cyst = 2.0 x 1.5 x 1.5cm Post CDS / Adnexa: wnl Presence of free fluid: no Presence of corpus luteal cyst: not definite, follicular changes on each ovary Presence of subchorionic bleed: no GESTATION / SURVEY CRL: not seen today Gestational Sac morphology: not seen today Endometrium = 0.6cm Date of LMP: 07/03/2024 Beta HcG (if available): 338.4 IMPRESSION: No evidence of intrauterine gestational sac in this patient with a positive B-hCG. Given history of s pontaneous no definitive evidence for retained product of conception. [facility], , 08/26/2024 7:32 AM
[2024-08-26 08:28] VITALS: BP 118/63; PULSE 85; RESP 17; TEMP 97.6
== END 2024-08-26 08:57 | disposition home or self-care (01) ==
LOC: EC 01:51
DX: N93.9 Abnormal uterine and vaginal bleeding, unspecified (principal)
CPT/HCPCS: 36415; 86900; 86901; 80053; 85025; 85610; 85730; 81003; 81025; 84702; 76801; 99284; 96374; 96375; 96361; J2270; J2405

== ENCOUNTER 2024-11-19 23:26 | Emergency (ER) | payer OTHER ==
[2024-11-20] MEDS: ACETAMINOPHEN TAB 500 MG TAB PO STA (00:57)
[2024-11-20 01:18] LABS: Basophils # (A) 0.06 10*3/uL (0.00-0.10); Basophils % (A) 0.8 %; Eosinophils # (A) 0.23 10*3/uL (0.04-0.35); Eosinophils % (A) 3.2 %; HCT 28.5 % (37.2-46.3); HGB 9.2 g/dL (12.0-15.0); MCH 23.5 pg (27.0-32.0); MCHC 32.3 g/dL (32.0-37.0); MCV 72.9 fL (80.0-97.0); Monocytes # (A) 0.86 10*3/uL (0.20-1.00); Monocytes % (A) 11.9 %; Neutrophils # (A) 3.45 10*3/uL (1.80-7.70); Neutrophils % (A) 47.7 %; Platelet Count 341 10*3/uL (140-440); RBC 3.91 10*6/uL (4.10-5.20); WBC 7.23 10*3/uL (4.50-10.00)
[2024-11-20] MEDS: SODIUM CHLORIDE 0.9% 1,000 ML IV ONE (01:27)
[2024-11-20 01:36] LABS: INR 0.8 (<1.2); Prothrombin Time 9.4 sec (10.0-12.5)
[2024-11-20 01:45] LABS: ALT 15 U/L (4-34); AST 23 U/L (14-36); African American GFR (CKD) >90 (>60 ml/min/1.73 sqM); Albumin 3.7 g/dL (3.5-5.0); Alkaline Phosphatase 63 U/L (38-126); Anion Gap 7 mmol/L; Blood Urea Nitrogen 11 mg/dL (7-17); Calcium 9.8 mg/dL (8.4-10.2); Carbon Dioxide 24 mmol/L (22-30); Chloride 103 mmol/L (98-107); Glucose 79 mg/dL (74-99); Non-African American GFR(CKD) >90 (>60 ml/min/1.73 sqM); Potassium 4.3 mmol/L (3.5-5.1); Sodium 134 mmol/L (137-145); Total Bilirubin 0.4 mg/dL (0.2-1.3); Total Protein 6.6 g/dL (6.3-8.2)
[2024-11-20 01:47] LABS: Partial Thromboplastin Time 20.6 sec (22.0-30.0)
--- NOTE | 2024-11-20 01:53 | US ---
EXAM: US First Trimester , Transabdominal CLINICAL HISTORY: ITS.REASON US Reason: 10 wks, bleeding, cramping TECHNIQUE: Real-time transabdominal obstetrical ultrasound of the maternal pelvis and a first trimester with image documentation. COMPARISON: No previous studies. FINDINGS: Gestation: Single intrauterine [place]-rump length measures 2.1 cm corresponding to a gestational age of 8 weeks 5 days. Yolk sac is not visualized. No cardiac activity is detected. Placenta/amniotic fluid: A 3.2 x 2 x 2.2 cm area of subchorionic bleed is noted cephalad to a gestational sac. Uterus/cervix: The uterus measures 1.5 x 7.2 x 7.9 cm. No myometrial mass. Ovaries: Right ovary measures 2.5 x 2.2 x 2.3 cm. Left ovary measures 3.4 x 2.5 x 1.9 cm. A 2.7 x 2 x 2.1 cm probable right ovarian corpus luteum cyst. No mass. Free fluid: No free fluid within posterior cul-de-sac. IMPRESSION: 1. Single intrauterine gestation corresponding to 8 weeks 5 days. 2. No cardiac activity is detected raising concern for intrauterine demise with incomplete . 3. Subchorionic bleed. 4. Probable right ovarian corpus luteum cyst. <MYCVCSECTION> Communications: 11/20/24 01:55 Call Doctor Regarding Above results, called Dr Valenzuela on 11/20 01:55 (-04:00)
--- NOTE | 2024-11-20 01:56 | ED ---
General Adult HPI - General Chief complaint: Vaginal Bleeding Stated complaint: vaginal bleeding 10 weeks Time Seen by Provider: 11/19/24 23:40 Source: patient, RN notes reviewed Mode of arrival: ambulatory Limitations: no limitations - History of Present Illness Initial comments: 24-year-old female presents to the emergency department for evaluation of vaginal bleeding and cramping in . Patient reports that she believes she is around 10 weeks . She notes that over the past 2 days she has experienced some vaginal bleeding. She notes that it is light and not going through multiple pads. She also reports some abdominal cramping. She denies any significant abdominal pain. Denies any fever, chills. Denies any urinary symptoms at this time. She does report a prior loss resulting in D&C. She follows with Dr. Oglesby. - Related Data Home Medications Medication Instructions Recorded Confirmed lisinopriL [Zestril] 10 mg PO DAILY PRN 02/21/24 02/21/24 Previous Rx's Medication Instructions Recorded methylPREDNISolone [Medrol Dose 0 mg PO DIRECTED #1 packet 07/07/24 Pack] Vit No.179/Iron/Folic 1 each PO DAILY #30 tab 08/21/24 [ Tablet] Allergies Allergy/AdvReac Type Severity Reaction Status Date / Time No Known Allergies Allergy Verified 11/19/24 23:34 Review of Systems ROS Statement: Those systems with pertinent positive or pertinent negative responses have been documented in the HPI. ROS Other: All systems not noted in ROS Statement are negative. Past Medical History Past Medical History: Asthma, Hypertension Additional Past Medical History / Comment(s): Obstetric history: Patient had a term vaginal deliveries 7 lbs. 5 oz. baby girl in 2019. History of Any Multi-Drug Resistant Organisms: None Reported Past Surgical History: No Surgical Hx Reported Past Anesthesia/Blood Transfusion Reactions: No Reported Reaction Past Psychological History: No Psychological Hx Reported Smoking Status: Never smoker Past Alcohol Use History: Occasional Past Drug Use History: None Reported - Past Family History Mother Family Medical History: Hypertension Additional Family Medical History / Comment(s): anxiety General Exam Limitations: no limitations General appearance: alert, in no apparent distress Head exam: Present: atraumatic, normocephalic, normal inspection Eye exam: Present: normal appearance, PERRL, EOMI. Absent: scleral icterus, conjunctival injection, periorbital swelling ENT exam: Present: normal exam, mucous membranes moist Neck exam: Present: normal inspection. Absent: tenderness, meningismus, lympha denopathy Respiratory exam: Present: normal lung sounds bilaterally. Absent: respiratory distress, wheezes, rales, rhonchi, stridor Cardiovascular Exam: Present: regular rate, normal rhythm, normal heart sounds. Absent: systolic murmur, diastolic murmur, rubs, gallop, clicks GI/Abdominal exam: Present: soft, normal bowel sounds. Absent: distended, tenderness, guarding, rebound, rigid Extremities exam: Present: normal inspection, full ROM, normal capillary refill. Absent: tenderness, pedal edema, joint swelling, calf tenderness Back exam: Present: normal inspection Neurological exam: Present: alert, oriented X3 Psychiatric exam: Present: normal affect, normal mood Skin exam: Present: warm, dry, intact, normal color. Absent: rash Course Vital Signs 11/19/24 11/20/24 23:34 03:17 Temperature 98.5 F 99.2 F Pulse Rate 97 79 Respiratory 18 20 Rate Blood Pressure 138/83 147/91 O2 Sat by Pulse 100 100 Oximetry Medical Decision Making - Medical Decision Making Was pt. sent in by a medical professional or institution (, PA, [employer], urgent care, hospital, or senior care...) When possible be specific @ -No Did you speak to anyone other than the patient for history (EMS, parent, family, police, friend...)? What history was obtained from this source @ -No Did you review nursing and triage notes (agree or disagree)? Why? @ -I reviewed and agree with nursing and triage notes Were old charts reviewed (outside hosp., previous admission, EMS record, old EKG, old radiological studies, urgent care reports/EKG's, senior care records)? Report findings @ -No old charts were reviewed Differential Diagnosis (chest pain, altered mental status, abdominal pain women, abdominal pain men, vaginal bleeding, weakness, fever, dyspnea, syncope, headache, dizziness, GI bleed, back pain, seizure, CVA, palpatations, mental health, musculoskeletal)? @ -Differential Vaginal Bleeding: Spontaneous , threatened , molar , ectopic , bloody show, incompetent cervix, abruptioplacenta, placenta previa, uterine rupture, dysfunctional uterine bleeding, hemorrhage, uterine fibroids, this is not meant to be an all-inclusive list. EKG interpreted by me (3pts min.). @ -None X-rays interpreted by me (1pt min.). @ -None done CT interpreted by me (1pt min.). @ -None done U/S interpreted by me (1pt. min.). @ -Ultrasound reveals intrauterine measuring 8 weeks 5 days with no heart tones identified What testing was considered but not performed or refused? (CT, X-rays, U/S, labs)? Why? @ -None What meds were considered but not given or refused? Why? @ -None Did you discuss the management of the patient with other professionals (professionals i.e. , PA, [employer], lab, RT, psych nurse, criminal justice social worker, applications coordinator, teacher, botanical technical officer, medical case manager)? Give summary @ -No Was smoking cessation discussed for >3mins.? @ -No Was critical care preformed (if so, how long)? @ -No Were there social determinants of health that impacted care today? How? (Homelessness, low income, unemployed, alcoholism, drug addiction, transportation, low edu. Level, literacy, decrease access to med. care, senior living, rehab)? @ -No Was there de-escalation of care discussed even if they declined (Discuss DNR or withdrawal of care, Hospice)? DNR status @ -No What co-morbidities impacted this encounter? (DM, HTN, Smoking, COPD, CAD, Canc er, CVA, ARF, Chemo, Hep., AIDS, mental health diagnosis, sleep apnea, morbid obesity)? @ -None Was patient admitted / discharged? Hospital course, mention meds given and route, prescriptions, significant lab abnormalities, going to OR and other pertinent info. @ -Discharge. Patient presented to the emergency department for evaluation of vaginal bleeding and cramping in . Laboratory studies obtainedHemoglobin is 9.2 which is stable for the patient. No significant leukocytosis. Platelets within normal limits at 341. CMP nonactionable, quantitative hCG 43,935. UA shows no evidence of infectious process. A ultrasound obtained revealing an intrauterine measuring 8 weeks 5 days with no identified heart tones. The patient was advised on these findings. She was advised to follow-up with her TRAINING CONSULTANT. Instructed on strict return precautions including development of abdominal pain, worsening bleeding, fever, although this is not all-inclusive. She expresses understanding. She will be discharged home. She is understanding agreeable with plan. Patient stable at time of discharge. Case discussed with Dr. Villalobos. Undiagnosed new problem with uncertain prognosis? @ -No Drug Therapy requiring intensive monitoring for toxicity (Heparin, Nitro, Insul in, Cardizem)? @ -No Were any procedures done? @ -No Diagnosis/symptom? @ -Incomplete Acute, or Chronic, or Acute on Chronic? @ -Acute Uncomplicated (without systemic symptoms) or Complicated (systemic symptoms)? @ -Uncomplicated Side effects of treatment? @ -No Exacerbation, Progression, or Severe Exacerbation? @ -No Poses a threat to life or bodily function? How? (Chest pain, USA, MD, pneumonia, PE, COPD, DKA, ARF, appy, cholecystitis, CVA, Diverticulitis, Homicidal, Suicidal, threat to staff... and all critical care pts) @ -No - Lab Data Result diagrams: 11/20/24 01:02 11/20/24 01:02 Lab Results 11/20/24 11/20/24 11/20/24 Range/Units 01:02 01:02 01:02 WBC 7.23 (4.50-10.00) 10*3/uL RBC 3.91 L (4.10-5.20) 10*6/uL Hgb 9.2 L (12.0-15.0) g/dL Hct 28.5 L (37.2-46.3) % MCV 72.9 L (80.0-97.0) fL MCH 23.5 L (27.0-32.0) pg MCHC 32.3 (32.0-37.0) g/dL Plt Count 341 (140-440) 10*3/uL MPV 11.0 (9.5-12.2) fL Immature Gran % (Auto) 0.4 % Neutrophils % 47.7 % Lymphocytes % 36.0 % Monocytes % 11.9 % Eosinophils % 3.2 % Basophils % 0.8 % Immature Gran # 0.03 (0.00-0.04) 10*3/uL Neutrophils # 3.45 (1.80-7.70) 10*3/uL Lymphocytes # 2.60 (0.90-5.00) 10*3/uL Monocytes # 0.86 (0.20-1.00) 10*3/uL Eosinophils # 0.23 (0.04-0.35) 10*3/uL Basophils # 0.06 (0.00-0.10) 10*3/uL PT 9.4 L (10.0-12.5) sec INR 0.8 (<1.2) APTT 20.6 L (22.0-30.0) sec Sodium 134 L (137-145) mmol/L Potassium 4.3 (3.5-5.1) mmol/L Chloride 103 (98-107) mmol/L Carbon Dioxide 24 (22-30) mmol/L Anion Gap 7 mmol/L BUN 11 (7-17) mg/dL Creatinine 0.59 (0.52-1.04) mg/dL Est GFR (CKD-EPI)AfAm >90 (>60 ml/min/1.73 sqM) Est GFR (CKD-EPI)NonAf >90 (>60 ml/min/1.73 sqM) Glucose 79 (74-99) mg/dL Calcium 9.8 (8.4-10.2) mg/dL Total Bilirubin 0.4 (0.2-1.3) mg/dL AST 23 (14-36) U/L ALT 15 (4-34) U/L Alkaline Phosphatase 63 (38-126) U/L Total Protein 6.6 (6.3-8.2) g/dL Albumin 3.7 (3.5-5.0) g/dL HCG, Quant 98543.7 mIU/mL Urine Color Urine Appearance (Clear) Urine pH (5.0-8.0) Ur Specific [place] (1.001-1.035) Urine Protein (Negative) Urine Glucose (UA) (Negative) Urine Ketones (Negative) Urine Blood (Negative) Urine Nitrite (Negative) Urine Bilirubin (Negative) Urine Urobilinogen (<2.0) mg/dL Ur Leukocyte Esterase (Negative) Blood Type Blood Type Recheck Bld Type Recheck Status 11/20/24 11/20/24 Range/Units 03:12 03:17 WBC (4.50-10.00) 10*3/uL RBC (4.10-5.20) 10*6/uL Hgb (12.0-15.0) g/dL Hct (37.2-46.3) % MCV (80.0-97.0) fL MCH (27.0-32.0) pg MCHC (32.0-37.0) g/dL Plt Count (140-440) 10*3/uL MPV (9.5-12.2) fL Immature Gran % (Auto) % Neutrophils % % Lymphocytes % % Monocytes % % Eosinophils % % Basophils % % Immature Gran # (0.00-0.04) 10*3/uL Neutrophils # (1.80-7.70) 10*3/uL Lymphocytes # (0.90-5.00) 10*3/uL Monocytes # (0.20-1.00) 10*3/uL Eosinophils # (0.04-0.35) 10*3/uL Basophils # (0.00-0.10) 10*3/uL PT (10.0-12.5) sec INR (<1.2) APTT (22.0-30.0) sec Sodium (137-145) mmol/L Potassium (3.5-5.1) mmol/L Chloride (98-107) mmol/L Carbon Dioxide (22-30) mmol/L Anion Gap mmol/L BUN (7-17) mg/dL Creatinine (0.52-1.04) mg/dL Est GFR (CKD-EPI)AfAm (>60 ml/min/1.73 sqM) Est GFR (CKD-EPI)NonAf (>60 ml/min/1.73 sqM) Glucose (74-99) mg/dL Calcium (8.4-10.2) mg/dL Total Bilirubin (0.2-1.3) mg/dL AST (14-36) U/L ALT (4-34) U/L Alkaline Phosphatase (38-126) U/L Total Protein (6.3-8.2) g/dL Albumin (3.5-5.0) g/dL HCG, Quant mIU/mL Urine Color Colorless Urine Appearance Clear (Clear) Urine pH 6.5 (5.0-8.0) Ur Specific [place] 1.023 (1.001-1.035) Urine Protein Negative (Negative) Urine Glucose (UA) Negative (Negative) Urine Ketones Negative (Negative) Urine Blood Negative (Negative) Urine Nitrite Negative (Negative) Urine Bilirubin Negative (Negative) Urine Urobilinogen <2.0 (<2.0) mg/dL Ur Leukocyte Esterase Negative (Negative) Blood Type B Positive Blood Type Recheck B Pos Bld Type Recheck Status No Disposition Clinical Impression: Threatened Disposition: HOME SELF-CARE Condition: Stable Instructions (If sedation given, give patient instructions): Threatened Miscarriage (ED) Additional Instructions: Please follow up closely with Dr. Oglesby. Return to the emergency department for new or worsening symptoms as we discussed. Is patient prescribed a controlled substance at d/c from ED?: No Referrals: Richard Pack DO [Primary Care Provider] - 1-2 days Carli Oglesby DO [Doctor of Osteopathic Medicine] - 1-2 days
[2024-11-20 02:43] LABS: HCG,Quantitative Serum 43935.7 mIU/mL
[2024-11-20 03:23] VITALS: BP 147/91; PULSE 79; RESP 20; TEMP 99.2
[2024-11-20 04:07] LABS: Appearance,Urine Clear (Clear); Bilirubin,Urine Negative (Negative); Blood,Urine Negative (Negative); Color,Urine Colorless; Glucose,Urine (UA) Negative (Negative); Ketones,Urine Negative (Negative); Leukocyte Esterase,Urine Negative (Negative); Nitrite,Urine Negative (Negative); PH, Urine 6.5 (5.0-8.0); Protein,Urine Negative (Negative); Specific Gravity,Urine 1.023 (1.001-1.035); Urobilinogen,Urine <2.0 mg/dL (<2.0)
== END 2024-11-20 03:17 | disposition home or self-care (01) ==
LOC: EC 23:26
DX: O03.4 Incomplete spontaneous abortion without complication (principal); Z3A.10 10 weeks gestation of pregnancy
CPT/HCPCS: 36415; 76801; 80053; 81003; 84702; 85025; 85610; 85730; 86900; 86901; 96360; 96361; 99284

== ENCOUNTER 2024-11-24 20:02 | Emergency (ER) | payer OTHER ==
[2024-11-24 20:13] VITALS: TEMP 98.5
[2024-11-24 21:11] LABS: Basophils # (A) 0.05 10*3/uL (0.00-0.10); Basophils % (A) 0.7 %; Eosinophils # (A) 0.28 10*3/uL (0.04-0.35); Eosinophils % (A) 3.8 %; HCT 30.8 % (37.2-46.3); HGB 9.9 g/dL (12.0-15.0); Lymphocytes # (A) 2.36 10*3/uL (0.90-5.00); Lymphocytes % (A) 32.2 %; MCH 23.6 pg (27.0-32.0); MCHC 32.1 g/dL (32.0-37.0); MCV 73.5 fL (80.0-97.0); Mean Platelet Volume 10.4 fL (9.5-12.2); Monocytes # (A) 0.72 10*3/uL (0.20-1.00); Monocytes % (A) 9.8 %; Neutrophils # (A) 3.88 10*3/uL (1.80-7.70); Neutrophils % (A) 53.1 %; Platelet Count 355 10*3/uL (140-440); RBC 4.19 10*6/uL (4.10-5.20); RDW 18.3 % (11.5-14.5); WBC 7.32 10*3/uL (4.50-10.00)
[2024-11-24 21:19] LABS: Appearance,Urine Clear (Clear); Bilirubin,Urine Negative (Negative); Blood,Urine Negative (Negative); Color,Urine Light Yellow; Glucose,Urine (UA) Negative (Negative); Ketones,Urine Negative (Negative); Leukocyte Esterase,Urine Negative (Negative); Nitrite,Urine Negative (Negative); Protein,Urine Negative (Negative); Specific Gravity,Urine 1.026 (1.001-1.035); Urobilinogen,Urine <2.0 mg/dL (<2.0)
[2024-11-24] MEDS: ACETAMINOPHEN TAB 500 MG TAB PO STA (21:19)
[2024-11-24] MEDS: MAG HYDROX/AL HYDROX/SIMETH 30 ML CUP PO STA (21:19)
[2024-11-24] MEDS: METOCLOPRAMIDE 5 MG/ML 2 ML VIAL IVP STA (21:21)
[2024-11-24] MEDS: FAMOTIDINE 20 MG/2 ML VIAL IV STA (21:22)
[2024-11-24] MEDS: SODIUM CHLORIDE 0.9% 500 ML 500 ML IV STA (21:24)
[2024-11-24] MEDS: diphenhydrAMINE 50 MG/ML 1 ML VIAL IVP STA (21:24)
[2024-11-24 21:31] LABS: ALT 14 U/L (4-34); AST 22 U/L (14-36); African American GFR (CKD) >90 (>60 ml/min/1.73 sqM); Albumin 3.9 g/dL (3.5-5.0); Alkaline Phosphatase 77 U/L (38-126); Anion Gap 8 mmol/L; Blood Urea Nitrogen 8 mg/dL (7-17); Calcium 9.6 mg/dL (8.4-10.2); Carbon Dioxide 23 mmol/L (22-30); Chloride 102 mmol/L (98-107); Glucose 98 mg/dL (74-99); Lipase 117 U/L (23-300); Non-African American GFR(CKD) >90 (>60 ml/min/1.73 sqM); Potassium 4.2 mmol/L (3.5-5.1); Sodium 133 mmol/L (137-145); Total Bilirubin 0.3 mg/dL (0.2-1.3); Total Protein 6.9 g/dL (6.3-8.2)
[2024-11-24 21:33] LABS: INR 0.8 (<1.2); Partial Thromboplastin Time 21.1 sec (22.0-30.0); Prothrombin Time 9.5 sec (10.0-12.5)
[2024-11-24 22:26] LABS: HCG,Quantitative Serum 25272.3 mIU/mL
--- NOTE | 2024-11-25 00:58 | US ---
EXAM: US First Trimester , Transabdominal CLINICAL HISTORY: ITS.REASON US Reason: abdominal pain, concern for recent demise TECHNIQUE: Real-time transabdominal obstetrical ultrasound of the maternal pelvis and a first trimester with image documentation. COMPARISON: 11/20/2024 FINDINGS: Gestation: Intrauterine with an estimated gestational age of 8 weeks 5 days. heart tones are not identified on this exam. Placenta/amniotic fluid: Subchorionic hemorrhage measuring 2.7 x 1.2 cm. Uterus/cervix: Unremarkable. No myometrial mass. Ovaries: Unremarkable. No mass. Free fluid: No free fluid. IMPRESSION: Intrauterine demise
--- NOTE | 2024-11-25 00:58 | ED ---
General Adult HPI - General Chief complaint: Abdominal Pain Stated complaint: abd pain, weakness Time Seen by Provider: 11/24/24 20:21 Source: patient Mode of arrival: ambulatory Limitations: no limitations - History of Present Illness Initial comments: Patient is a 24-year-old female G6, P3, 11 weeks , presenting today for lower abdominal "heaviness", headaches and not feeling well. States symptoms have been ongoing the last couple of weeks. Was here 4 days ago for vaginal bleeding, had similar symptoms and had ultrasound done and was told that there is no heartbeat detected. Patient has been unable to follow-up with her OB due to being unable to get an appointment. Vaginal bleeding has since stopped. No nausea, no emesis. States she feels hot and cold though denies fevers, no diarrhea, melena, hematochezia, vaginal discharge, dysuria or urinary frequency, hematuria, chest pain or shortness of breath. Has intermittently been taking tylenol at home for her headaches. Describes them as pressure like at the front of her head, without associated vision changes, numbness or weakness. HAs have been intermittent and not sudden in onset. - Related Data Home Medications Medication Instructions Recorded Confirmed lisinopriL [Zestril] 10 mg PO DAILY PRN 02/21/24 02/21/24 Previous Rx's Medication Instructions Recorded methylPREDNISolone [Medrol Dose 0 mg PO DIRECTED #1 packet 07/07/24 Pack] Vit No.179/Iron/Folic 1 each PO DAILY #30 tab 08/21/24 [ Tablet] Allergies Allergy/AdvReac Type Severity Reaction Status Date / Time No Known Allergies Allergy Verified 11/24/24 20:13 Review of Systems ROS Statement: Those systems with pertinent positive or pertinent negative responses have been documented in the HPI. ROS Other: All systems not noted in ROS Statement are negative. Past Medical History Past Medical History: Asthma, Hypertension Additional Past Medical History / Comment(s): Obstetric history: Patient had a term vaginal deliveries 7 lbs. 5 oz. baby girl in 2019. History of Any Multi-Drug Resistant Organisms: None Reported Past Surgical History: No Surgical Hx Reported Past Anesthesia/Blood Transfusion Reactions: No Reported Reaction Past Psychological History: No Psychological Hx Reported Smoking Status: Never smoker Past Alcohol Use History: Occasional Past Drug Use History: None Reported - Past Family History Mother Family Medical History: Hypertension Additional Family Medical History / Comment(s): anxiety General Exam - General Exam Comments Initial Comments: PE: CONSTITUTIONAL: No apparent distress, well appearing SKIN: Warm, dry, no jaundice, hives or petechiae EYES: Pupils are equally round, extraocular movements intact without nystagmus, clear conjunctiva, non-icteric sclera HENT: Normocephalic, atraumatic, moist mucus membranes, oropharynx clear without exudates NECK: , Full range of motion, normal appearance PULMONARY: Clear to auscultation without wheezes, rhonchi, or rales, normal excursion, no accessory muscle use and no stridor CARDIOVASCULAR: Regular rate, rhythm, normal S1 and S2. No appreciated murmurs, rubs or gallops. Strong radial pulses with intact distal perfusion. No lower extremity edema GASTROINTESTINAL: Soft, active bowel sounds throughout, non-tender, non- distended, no palpable masses, no rebound or guarding. No hepatosplenomegaly MUSCULOSKELETAL: Extremities have no gross deformity, no edema, redness, or swelling. No calf swelling NEUROLOGIC:_a/o x 3, GCS 15, normal mentation and speech. Moves all extremities x 4 without motor or sensory deficit PSYCHIATRIC:_normal mood and affect, thought process is clear and linear Limitations: no limitations Course Vital Signs 11/24/24 11/25/24 20:10 01:23 Temperature 98.5 F Pulse Rate 106 H 77 Respiratory 18 16 Rate Blood Pressure 142/88 132/68 O2 Sat by Pulse 99 97 Oximetry Medical Decision Making - Medical Decision Making Was pt. sent in by a medical professional or institution (, PA, RATE CLERK PASSENGER, urgent care, hospital, or residential...) When possible be specific @ -No Did you speak to anyone other than the patient for history (EMS, parent, family, police, friend...)? What history was obtained from this source @ -No Did you review nursing and triage notes (agree or disagree)? Why? @ -I reviewed and agree with nursing and triage notes- with the exception tht pt describes abdominal pain to mess as lower as opposed to "all over" Were old charts reviewed (outside hosp., previous admission, EMS record, old EKG, old radiological studies, urgent care reports/EKG's, residential records)? Report findings @ -Medical records reviewed- Pt here on 12/03/2024 -ultrasound performed on 11/20/2024 that showed single intrauterine gestation corresponding to 8 weeks 5 d ays with no activity, concern for demise, subchorionic bleed Differential Diagnosis (chest pain, altered mental status, abdominal pain women, abdominal pain men, vaginal bleeding, weakness, fever, dyspnea, syncope, headache, dizziness, GI bleed, back pain, seizure, CVA, palpatations, mental he alth, musculoskeletal)? @Differential Abdominal Pain Women: Appendicitis, Cholecystitis, diverticulosis, ischemic bowel, pancreatitis, hepatitis, UTI, gastroenteritis, incarcerated hernia, bowel obstruction, constipation, inflammatory bowel, peptic ulcer disease, missed , incomplete , septic , ectopic PID, kidney stone, placenta abruption, this is not meant to be an all-inclusive list EKG interpreted by me (3pts min.). @ -As above X-rays interpreted by me (1pt min.). @ -None done CT interpreted by me (1pt min.). @ -None done U/S interpreted by me (1pt. min.). @Personally reviewed ultrasound, I see no cardiac activity on ultrasound I agree with radiologist interpretation What testing was considered but not performed or refused? (CT, X-rays, U/S, labs)? Why? @ -None What meds were considered but not given or refused? Why? @ -None Did you discuss the management of the patient with other professionals (professionals i.e. , PA, RATE CLERK PASSENGER, lab, RT, psych nurse, social science manager, electrical service technician, teacher, aoc airspace control officer, case therapist)? Give summary @ -[Please see below regarding conversation with Dr. Oglesby Was smoking cessation discussed for >3mins.? @ -No Was critical care preformed (if so, how long)? @ -No Were there social determinants of health that impacted care today? How? (Homelessness, low income, unemployed, alcoholism, drug addiction, transportation, low edu. Level, literacy, decrease access to med. care, group home, rehab)? @ -No Was there de-escalation of care discussed even if they declined (Discuss DNR or withdrawal of care, Hospice)? @ -No What co-morbidities impacted this encounter? (DM, HTN, Smoking, COPD, CAD, Cancer, CVA, ARF, Chemo, Hep., AIDS, mental health diagnosis, sleep apnea, morbid obesity)? @ -None Was patient admitted / discharged? Hospital course, mention meds given and route, prescriptions, significant lab abnormalities, going to OR and other pertinent info. @ -Sbaeikfhyj-30-juvf-old female G6, P3, currently 11 weeks presenting today for lower abdominal discomfort. On my assessment patient is well- appearing in no acute distress. Vitals were remarkable for mild tachycardia with heart rate 106 on arrival otherwise within acceptable limits. Patient is afebrile. Abdominal exam is benign, abdomen soft, nontender with active bowel sounds. Discussed with patient plan for repeat ultrasound, basic labs, GI cocktail. Patient agreeable plan of care.Labs remarkable for stable hemoglobin of 9.9, mild hyponatremia sodium 13,3, hCG 25,273.3, which is downtrending from 11/20/2024 when it was 43,935.7, urinalysis without signs of infection or hematuria, ultrasound confirmed intrauterine demise. I discussed justin plummer's case with Dr. Oglesby, obstetrics and gynecology, appreciate recommendations. States that she will have her office call patient tomorrow morning to schedule follow-up appointment on Friday for likely D&C. On reassessment patient symptoms have improved. I updated her to today's findings and discussed with her plan for outpatient follow-up. Patient understanding and agreeable to this. We discussed signs and symptoms warranting return to the emergency department. All questions were answered and patient was discharged in stable condition. In my medical judgment there is currently no evidence of an immediate life- threatening or surgical condition. Discharge is therefore indicated at this time. Discharge treatment instructions, follow up instructions, and appropriate emergency department return precautions were discussed with the patient and/or medical decision maker. Patient and/or medical decision maker expressed understanding of and agreed with the treatment plan, follow up instructions, and emergency department return precaution. All patient's and/or medical decision maker's questions were answered. Undiagnosed new problem with uncertain prognosis? @ -No Drug Therapy requiring intensive monitoring for toxicity (Heparin, Nitro, Insulin, Cardizem)? @ -No Were any procedures done? @ -No Diagnosis/symptom? @Intrauterine demise due to miscarriage Acute, or Chronic, or Acute on Chronic? Acute Uncomplicated (without systemic symptoms) or Complicated (systemic symptoms)? Uncomplicated Side effects of treatment? @ -No Exacerbation, Progression, or Severe Exacerbation? @ -No Poses a threat to life or bodily function? How? (Chest pain, [place], [place], pneumonia, PE, COPD, DKA, ARF, appy, cholecystitis, CVA, Diverticulitis, Homicidal, Suicidal, threat to staff... and all critical care pts) @No, not at the time of discharge - Lab Data Result diagrams: 11/24/24 21:05 11/24/24 21:05 Lab Results 11/24/24 11/24/24 11/24/24 Range/Units 21:05 21: 21:05 WBC 7.32 (4.50-10.00) 10*3/uL RBC 4.19 (4.10-5.20) 10*6/uL Hgb 9.9 L (12.0-15.0) g/dL Hct 30.8 L (37.2-46.3) % MCV 73.5 L (80.0-97.0) fL MCH 23.6 L (27.0-32.0) pg MCHC 32.1 (32.0-37.0) g/dL Plt Count 355 (140-440) 10*3/uL MPV 10.4 (9.5-12.2) fL Immature Gran % (Auto) 0.4 % Neutrophils % 53.1 % Lymphocytes % 32.2 % Monocytes % 9.8 % Eosinophils % 3.8 % Basophils % 0.7 % Immature Gran # 0.03 (0.00-0.04) 10*3/uL Neutrophils # 3.88 (1.80-7.70) 10*3/uL Lymphocytes # 2.36 (0.90-5.00) 10*3/uL Monocytes # 0.72 (0.20-1.00) 10*3/uL Eosinophils # 0.28 (0.04-0.35) 10*3/uL Basophils # 0.05 (0.00-0.10) 10*3/uL PT 9.5 L (10.0-12.5) sec INR 0.8 (<1.2) APTT 21.1 L (22.0-30.0) sec Sodium (137-145) mmol/L Potassium (3.5-5.1) mmol/L Chloride (98-107) mmol/L Carbon Dioxide (22-30) mmol/L Anion Gap mmol/L BUN (7-17) mg/dL Creatinine (0.52-1.04) mg/dL Est GFR (CKD-EPI)AfAm (>60 ml/min/1.73 sqM) Est GFR (CKD-EPI)NonAf (>60 ml/min/1.73 sqM) Glucose (74-99) mg/dL Calcium (8.4-10.2) mg/dL Total Bilirubin (0.2-1.3) mg/dL AST (14-36) U/L ALT (4-34) U/L Alkaline Phosphatase (38-126) U/L Total Protein (6.3-8.2) g/dL Albumin (3.5-5.0) g/dL Lipase (23-300) U/L HCG, Quant mIU/mL Urine Color Light Yellow Urine Appearance Clear (Clear) Urine pH 7.0 (5.0-8.0) Ur Specific Walker 1.026 (1.001-1.035) Urine Protein Negative (Negative) Urine Glucose (UA) Negative (Negative) Urine Ketones Negative (Negative) Urine Blood Negative (Negative) Urine Nitrite Negative (Negative) Urine Bilirubin Negative (Negative) Urine Urobilinogen <2.0 (<2.0) mg/dL Ur Leukocyte Esterase Negative (Negative) Blood Type Blood Type Recheck Bld Type Recheck Status Antibody Screen Spec Expiration Date 11/24/24 11/24/24 Range/Units 21:05 21:25 WBC (4.50-10.00) 10*3/uL RBC (4.10-5.20) 10*6/uL Hgb (12.0-15.0) g/dL Hct (37.2-46.3) % MCV (80.0-97.0) fL MCH (27.0-32.0) pg MCHC (32.0-37.0) g/dL Plt Count (140-440) 10*3/uL MPV (9.5-12.2) fL Immature Gran % (Auto) % Neutrophils % % Lymphocytes % % Monocytes % % Eosinophils % % Basophils % % Immature Gran # (0.00-0.04) 10*3/uL Neutrophils # (1.80-7.70) 10*3/uL Lymphocytes # (0.90-5.00) 10*3/uL Monocytes # (0.20-1.00) 10*3/uL Eosinophils # (0.04-0.35) 10*3/uL Basophils # (0.00-0.10) 10*3/uL PT (10.0-12.5) sec INR (<1.2) APTT (22.0-30.0) sec Sodium 133 L (137-145) mmol/L Potassium 4.2 (3.5-5.1) mmol/L Chloride 102 (98-107) mmol/L Carbon Dioxide 23 (22-30) mmol/L Anion Gap 8 mmol/L BUN 8 (7-17) mg/dL Creatinine 0.51 L (0.52-1.04) mg/dL Est GFR (CKD-EPI)AfAm >90 (>60 ml/min/1.73 sqM) Est GFR (CKD-EPI)NonAf >90 (>60 ml/min/1.73 sqM) Glucose 98 (74-99) mg/dL Calcium 9.6 (8.4-10.2) mg/dL Total Bilirubin 0.3 (0.2-1.3) mg/dL AST 22 (14-36) U/L ALT 14 (4-34) U/L Alkaline Phosphatase 77 (38-126) U/L Total Protein 6.9 (6.3-8.2) g/dL Albumin 3.9 (3.5-5.0) g/dL Lipase 117 (23-300) U/L HCG, Quant 48268.3 mIU/mL Urine Color Urine Appearance (Clear) Urine pH (5.0-8.0) Ur Specific Walker (1.001-1.035) Urine Protein (Negative) Urine Glucose (UA) (Negative) Urine Ketones (Negative) Urine Blood (Negative) Urine Nitrite (Negative) Urine Bilirubin (Negative) Urine Urobilinogen (<2.0) mg/dL Ur Leukocyte Esterase (Negative) Blood Type B Positive Blood Type Recheck B Pos Bld Type Recheck Status No Antibody Screen NEGATIVE Spec Expiration Date 11/27/20242324 Disposition Clinical Impression: demise due to miscarriage Disposition: HOME SELF-CARE Condition: Good Instructions (If sedation given, give patient instructions): Miscarriage (ED) Additional Instructions: Every disease is a spectrum and a small chance still exists that a serious condition could develop, for this reason, please monitor yourself closely for new, changing or worsening symptoms, foul smelling vaginal discharge, uncontrolled abdominal pain, vaginal bleeding, to the point of bleeding through more than 1 pad an hour for greater than 2 hours signs of excessive blood loss such as lightheadedness, dizziness palpitations or shortness of breath, fever, inability to tolerate/keep down fluids or your medications, inability to follow up with outpatient providers as instructed and should you experience these symptoms or should you have any further concerns for your wellbeing please return to the ED or call 911 immediately. [place] investigation officer Should be contacting you tomorrow morning for follow a ppointment this coming Friday. Please contact their office tomorrow if you have not heard from them by the end of the day. PLEASE call your primary care physician as soon as possible to arrange / discuss plan for followup appointment. Appointment in the next 1-3 days is strongly encouraged if possible. PLEASE let us know here before you leave if there is anything further we can do to be of any assistance. Take care and feel Better! Is patient prescribed a controlled substance at d/c from ED?: No Referrals: Richard Pack DO [Primary Care Provider] - 1-2 days Carli Oglesby DO [Doctor of Osteopathic Medicine] - 1-2 days [facility] [Provider Group] - 1-2 days
[2024-11-25 01:24] VITALS: BP 132/68; PULSE 77; RESP 16
== END 2024-11-25 01:24 | disposition home or self-care (01) ==
LOC: EC 20:02
DX: O03.9 Complete or unspecified spontaneous abortion without complication (principal); R00.0 Tachycardia, unspecified; E87.1 Hypo-osmolality and hyponatremia
CPT/HCPCS: 99284; 96374; 96375 ×2; 96361 ×4; 36415; 86900; 86901; 80053; 83690; 85025; 85610; 85730; 86850; 81003; 84702; 76801; J1200; J2765; J1308

== ENCOUNTER → 2024-11-26 | Outpatient (CLI) | payer OTHER ==
[2024-11-26 18:30] LABS: HCT 29.9 % (37.2-46.3); HGB 9.1 g/dL (12.0-15.0); MCH 22.8 pg (27.0-32.0); MCHC 30.4 g/dL (32.0-37.0); MCV 74.9 FL (80.0-97.0); NRBC Per 100 WBC 0 X 10*3/uL (0.00-0.01); Platelet Count 346 X 10*3/uL (140-440); RBC 3.99 X 10*6/uL (4.10-5.20); RDW 18.6 % (11.5-14.5); WBC 6.91 X 10*3/uL (4.50-10.00)
[2024-11-26 19:47] LABS: Basophils # (A) 0.04 X 10*3/uL (0.00-0.10); Basophils % (A) 0.6 %; Eosinophils # (A) 0.23 X 10*3/uL (0.04-0.35); Eosinophils % (A) 3.3 %; Lymphocytes % (A) 31.8 %; Microcytosis (M) 2+ (None Seen); Monocytes # (A) 0.57 X 10*3/uL (0.20-1.00); Monocytes % (A) 8.2 %; Neutrophils # (A) 3.84 X 10*3/uL (1.80-7.70); Neutrophils % (A) 55.7 %
== END | disposition home or self-care (01) ==
LOC: LABPAT 13:19
PROVIDERS: ATTEND Obstetrics & Gynecology
DX: Z01.812 Encounter for preprocedural laboratory examination (principal); O03.4 Incomplete spontaneous abortion without complication
CPT/HCPCS: 85025; 86850; 86900; 86901

== ENCOUNTER 2024-11-29 10:32 | Day surgery (SDC) | payer OTHER ==
[2024-11-26 09:31] VITALS: BMI 34.4
--- NOTE | 2024-11-29 07:14 | P.HPOB ---
History of Present Illness H&P Date: 11/29/24 Chief Complaint: missed 24-year-old presents for suction D&C for missed AB at 8 weeks and 5 days. She has had 2 ultrasounds confirming absent heart tones. Review of Systems All systems: negative Constitutional: Denies chills, Denies fever Eyes: denies blurred vision, denies pain Ears, nose, mouth and throat: Denies headache, Denies sore throat Cardiovascular: Denies chest pain, Denies shortness of breath Respiratory: Denies cough Gastrointestinal: Denies abdominal pain, Denies diarrhea, Denies nausea, Denies vomiting Genitourinary: Denies dysuria, Denies hematuria Musculoskeletal: Denies myalgias Integumentary: Denies pruritus, Denies rash Neurological: Denies numbness, Denies weakness Psychiatric: Denies anxiety, Denies depression Endocrine: Denies fatigue, Denies weight change Past Medical History Past Medical History: Asthma, Hypertension Additional Past Medical History / Comment(s): Obstetric history: Patient had a term vaginal deliveries 7 lbs. 5 oz. baby girl in 2019. History of Any Multi-Drug Resistant Organisms: None Reported Past Surgical History: No Surgical Hx Reported Additional Past Surgical History / Comment(s): D&C. Past Anesthesia/Blood Transfusion Reactions: No Reported Reaction Smoking Status: Never smoker - Past Family History Mother Family Medical History: Hypertension Additional Family Medical History / Comment(s): Anxiety. Medications and Allergies Home Medications Medication Instructions Recorded Confirmed Type Albuterol Inhaler Unknown Dose 1 - 2 puff INHALATION DIRECTED 11/26/24 11/26/24 History PRN Lisinopril (Unkown Dose) 1 tab PO DAILY PRN 11/26/24 11/26/24 History Allergies Allergy/AdvReac Type Severity Reaction Status Date / Time No Known Allergies Allergy Verified 11/26/24 09:20 Exam Osteopathic Statement: *. No significant issues noted on an osteopathic structural exam other than those noted in the History and Physical/Consult. Heart: Regular rate and rhythm Lungs: Clear to auscultation bilaterally Abdomen: Soft, nontender Extremities: Negative Homans sign Assessment and Plan (1) Incomplete Status: Acute Code(s): O03.4 - INCOMPLETE SPONTANEOUS WITHOUT COMPLICATION SNOMED Code(s): 419543080 Plan: 1. Suction D&C
[~2024-11-29 10:32] MED LIST: Pre Op ABX Message 1 EACH MISC MISCELLANE ONE
[2024-11-29 10:57] VITALS: TEMP 95.5
[2024-11-29] MEDS: LIDOCAINE 1% (10MG/ML) FOR IV START INTRADERMA PRN (10:58)
[2024-11-29] MEDS: LACTATED RINGERS 1,000 ML BAG IV STA (10:59)
[2024-11-29] MEDS: IV FLUID CONTINUATION 1,000 ML IV ONE (10:59)
[2024-11-29] MEDS: FAMOTIDINE 20 MG/2 ML VIAL IV STA (11:09)
[2024-11-29] MEDS: ONDANSETRON 4 MG/2 ML VIAL IVP STA (11:10)
[2024-11-29] MEDS: DEXAMETHASONE SOD PHOSPHATE 4 MG/ML 1 ML VIAL IVP STA (11:10)
[2024-11-29] MEDS ORDERED: LACTATED RINGERS 1,000 ML IV SCH (11:15)
[2024-11-29] MEDS ORDERED: fentaNYL (PF) 50 MCG/ML 2 ML AMP ONE (11:19)
[2024-11-29] MEDS ORDERED: LIDOCAINE 1% INJ 10MG/ML (20 ML MDV) ONE (11:19)
[2024-11-29] MEDS ORDERED: MIDAZOLAM 2 MG/2 ML VIAL ONE (11:19)
[2024-11-29] MEDS ORDERED: PROPOFOL 10 MG/ML 20 ML VIAL IV ONE (11:19)
[2024-11-29] MEDS ORDERED: KETOROLAC 15 MG/ML 1 ML VIAL ONE (11:19)
[2024-11-29] MEDS: HYDROmorphone 0.5 MG/0.5 ML SYRINGE IVP PRN (12:23)
[2024-11-29] MEDS: LACTATED RINGERS 1,000 ML IV ONE (13:54)
[2024-11-29 14:04] VITALS: RESP 16
[2024-11-29 14:34] VITALS: BP 129/83; PULSE 80
--- NOTE | 2025-01-24 10:27 | P.OP ---
Date of Procedure: 11/29/24 Preoperative Diagnosis: 1. missed Postoperative Diagnosis: 1. missed Procedure(s) Performed: suction D&C Anesthesia: EITAN Surgeon: Carli Oglesby Estimated Blood Loss (ml): 200 Pathology: other (products of conception) Condition: stable Disposition: PACU Operative Findings: moderate amount products of conception Description of Procedure: Patient taken the operating room where general anesthesia was obtained without difficulty. She is prepped draped normal sterile fashion dorsal lithotomy position, legs placed in the candycane stirrups. Bladder was drained of all urine. Weighted speculum placed in vagina the anterior lip of the cervix was grasped with single-tooth tenaculum. The cervix was dilated to #10 Hegar dilator. #10 curved suction curette was introduced into the uterus and passed several times to remove all tissue and blood. Sharp curette was gently used to ensure all tissue had been removed. The suction curette was introduced a few more times to remove what was remaining. All instruments removed. Patient Toller procedure well. Sponge and instrument counts were correct x 2. She was taken to recovery in stable condition.
== END 2024-11-29 15:06 | disposition home or self-care (01) ==
LOC: OR 10:32
PROVIDERS: ATTEND Obstetrics & Gynecology
DX: O03.4 Incomplete spontaneous abortion without complication (principal); Z3A.08 8 weeks gestation of pregnancy; O10.911 Unspecified pre-existing hypertension complicating pregnancy, first trimester; J45.909 Unspecified asthma, uncomplicated
CPT/HCPCS: 88305; 59820; J2250; J1100; J2405; J2003; J3010; J1885; J2704; J1171; J1308